=== PATIENT | female | born 1935 | race African-American/Black ===

== ENCOUNTER → 2017-11-27 | Outpatient (CLI) | payer OTHER, MEDICARE ==
[~2017-11-27] MED LIST: AMLODIPINE BESY10 MG PO; ASPIR 8181 MG PO; CEPHALEXIN500 MG PO; COUMADIN2 MG PO; COUMADIN2.5 MG PO; METOPROLOL TART50 MG PO; PRAVASTATIN SOD40 MG PO
--- NOTE | 2017-11-27 15:37 | Diagnostic Imaging Report ---
PROCEDURE: Frontal and lateral views of the chest. COMPARISON: Patients [facility], , CHEST SINGLE (PORTABLE), 01/07/2017, 13:00. INDICATIONS: GASTRITIS FINDINGS: Lines/tubes: None. Lungs: The lungs are well inflated. Mild bilateral perihilar interstitial opacities . There is no evidence of consolidation or alveolar pulmonary edema. Pleura: There is no pleural effusion or pneumothorax. Heart and mediastinum: Stable enlargement of the cardiac silhouette. There is central pulmonary venous congestion. Tortuous aorta. Bones: No acute bony abnormality. IMPRESSION: 1. enlarged cardiac silhouette, central pulmonary venous congestion and mild bilateral perihilar interstitial edema, suggesting decompensated CHF. Lawrence Coffey M.D. Dictated by: Lawrence Coffey M.D. on 11/27/2017 at 15:37 Electronically approved by: Lawrence Coffey M.D. on 11/27/2017 at 15:37
--- NOTE | 2017-11-27 17:41 | Diagnostic Imaging Report ---
PROCEDURE:X-RAY ABDOMEN - KUB COMPARISON:None. INDICATIONS:GASTRITIS FINDINGS: Nonobstructive bowel gas pattern with large amount of retained stool in the colon. Linear calcifications in the left upper quadrant are likely vascular in origin. No definite calcifications project over the renal shadows or expected course of the ureters. Extensive vascular calcifications in the abdomen and pelvis. Generalized osteopenia, with degenerative changes in lower lumbosacral spine, bilateral hip and sacroiliac joints. Vertebroplasty changes at L1. Lung bases are clear. CONCLUSION: Nonobstructive bowel gas pattern with large amount of retained stool in the colon suggesting constipation. Lawrence Coffey M.D. Dictated by: Lawrence Coffey M.D. on 11/27/2017 at 17:41 Electronically approved by: Lawrence Coffey M.D. on 11/27/2017 at 17:41
== END ==
LOC: RAD 14:25
PROVIDERS: ATTEND Family Medicine
DX: J06.9 Acute upper respiratory infection, unspecified (principal); K29.00 Acute gastritis without bleeding
CPT/HCPCS: 71046; 74018

== ENCOUNTER → 2017-12-04 | Outpatient (CLI) | payer OTHER, MEDICARE ==
[~2017-12-04] MED LIST changes: +DIATRIZOATE MEGL/DIATRIZOA SOD 30 ML BTL PO ONE
--- NOTE | 2017-12-04 14:17 | Diagnostic Imaging Report ---
PROCEDURE: CT CHEST WITHOUT CONTRAST CT scan of the chest WITHOUT intravenous contrast, using standard protocol. TECHNIQUE: The chest was scanned utilizing a multidetector helical scanner from the apex to the level of the adrenal glands. No IV contrast was administered per physician request. Coronal and sagittal multiplanar reformations were obtained. COMPARISON: None. INDICATIONS: GASTRITIS, COUGH FINDINGS: Lines/tubes: None. Lungs and Airways: Mild bilateral bronchial wall thickening. Subtle groundglass opacities adjacent to the right upper lobe adjacent to the hilar vessels. 4.2 mm nodule in the lateral right upper lobe (series 4 image 47) Pleura: The pleural spaces are clear. Heart and mediastinum: Multinodular goiter with multiple nodules. Multiple hyperdense nodules in the right thyroid. Some of the nodules demonstrates peripheral calcifications and others demonstrates coarse dystrophic calcifications. No significant mediastinal, hilar or axillary lymphadenopathy is seen. The heart and pericardium are within normal limits. Severe atherosclerotic calcifications in the aorta and coronary arteries. Mild cardiomegaly with mildly dilated left atrium. Main pulmonary artery measures 3.8 cm. Ascending aorta measures 4.2 cm. Soft tissues: Normal. Abdomen: Small sliding hiatal hernia. Bones: Median sternotomy wires. Vertebroplasty material in L1 vertebral body. Soft tissue: Multiple right breast benign-appearing dystrophic calcifications. IMPRESSION: 1. Bronchial wall thickening with mild right perihilar groundglass opacities, likely atypical infection or reactive airway. 2. Enlargement pulmonary artery, which can be seen in pulmonary arterial hypertension. 3. Severe atherosclerotic of the aorta and coronary arteries. 4. Small sliding hiatal hernia. Dictated by: Scooter Lynne M.D. on 12/04/2017 at 14:17 Electronically approved by: Scooter Lynne M.D. on 12/04/2017 at 14:17
--- NOTE | 2017-12-04 14:30 | Diagnostic Imaging Report ---
PROCEDURE: CT ABDOMEN WITHOUT CONTRAST TECHNIQUE: The abdomen was scanned utilizing a multidetector helical scanner from the diaphragm to the iliac crest after the oral administration of Redicat. No IV contrast was administered because per physician request. Coronal and sagittal multiplanar reformations were obtained. COMPARISON: None. INDICATIONS: GASTRITIS FINDINGS: ABSENCE OF INTRAVENOUS CONTRAST DECREASES SENSITIVITY FOR DETECTION OF FOCAL LESIONS AND VASCULAR PATHOLOGY. LOWER THORAX: See chest CT. HEPATOBILIARY: No focal hepatic lesions. No biliary ductal dilatation. Several small gallstones. SPLEEN: No splenomegaly. PANCREAS: No focal masses or ductal dilatation. ADRENALS: No adrenal nodules. KIDNEYS: No hydronephrosis, stones, or solid mass lesions. The numerous bilateral renal cysts. Largest cyst in the right kidney measures 7.3 cm. Largest cyst in the left kidney measures 3.2 cm. Majority cysts are simple. There is however a 2.6 cm cyst in the interpolar region of the left kidney (series 2 image 63) with wall calcifications. PERITONEUM / RETROPERITONEUM: No free air or fluid. LYMPH NODES: No lymphadenopathy. VESSELS: Severe atherosclerotic calcifications.. GI TRACT: Visualized portions of the bowel demonstrate no distention or wall thickening. Small sliding hiatal hernia. BONES AND SOFT TISSUES: Vertebroplasty material in L1 vertebral body. Diffuse osteopenia of L4 vertebral body, likely intraosseous hemangioma. IMPRESSION: 1. Small sliding hiatal hernia. 2. Multiple bilateral renal cysts [place] 1 or [place] 2. 3. Severe vascular calcifications. Dictated by: Scooter Lynne M.D. on 12/04/2017 at 14:31 Electronically approved by: Scooter Lynne M.D. on 12/04/2017 at 14:31
== END ==
LOC: CT 12:43
PROVIDERS: ATTEND Family Medicine
DX: K29.00 Acute gastritis without bleeding (principal)
CPT/HCPCS: 71250; 74150

== ENCOUNTER → 2018-02-24 | Outpatient (CLI) | payer OTHER, MEDICARE ==
[~2018-02-24] MED LIST changes: -DIATRIZOATE MEGL/DIATRIZOA SOD 30 ML BTL PO ONE
== END | disposition home or self-care (01) ==
LOC: RAD 11:38
PROVIDERS: ATTEND Family Medicine
DX: I80.9 Phlebitis and thrombophlebitis of unspecified site (principal); I82.512 Chronic embolism and thrombosis of left femoral vein
CPT/HCPCS: 93971

== ENCOUNTER 2018-04-01 12:21 | Emergency (ER) | payer OTHER, MEDICARE ==
[~2018-04-01] VITALS: Ht 165.1 cm; Wt 86.6 kg
--- NOTE | 2018-04-01 15:50 | Diagnostic Imaging Report ---
PROCEDURE:ABDOMEN ACUTE SERIES W/PA CXR COMPARISON:None. INDICATIONS:CONSTIPATION, LEFT LEG SWOLLEN FINDINGS: CHEST: Median sternotomy wires. Tortuous thoracic aorta. The cardiac silhouette is mildly enlarged. Mild prominence of the pulmonary vasculature bilaterally. Prominence of the main pulmonary artery bilaterally may reflect hypertension. BOWEL PATTERN: No dilated bowel loops. No air-fluid levels. Moderate amount stool within the colon and rectum. SOFT TISSUES: Vascular calcifications. BONES: Status post L1 kyphoplasty. CONCLUSION: 1. No acute thoracic abnormality. Possible pulmonary hypertension. 2. Non-obstructive bowel gas pattern. Ethel Giles M.D. Dictated by: Ethel Giles M.D. on 04/01/2018 at 15:55 Electronically approved by: Ethel Giles M.D. on 04/01/2018 at 15:55
[2018-04-01 17:08] LABS: BILIRUBIN,URINE NEGATIVE (NEGATIVE); CLARITY,URINE CLOUDY (CLEAR); COLOR,URINE YELLOW (YELLOW); KETONES,URINE NEGATIVE (NEGATIVE); LEUKOCYTE ESTERASE ,URINE 2+ (NEGATIVE); NITRITE,URINE POSITIVE (NEGATIVE); PROTEIN,URINE DIPSTICK 1+ (NEGATIVE); URINE UROBILINOGEN 0.2 mg/dL (0.2 - 1)
[2018-04-01 17:22] LABS: BACTERIA,URINE MANY /HPF; WBC,URINE (MAN) 21-50 /HPF (0-5)
[2018-04-01] MEDS ORDERED: LEVOFLOXACIN 500MG/D5W 100ML 100 ML IV ONE (17:45)
[2018-04-01] MEDS ORDERED: LEVOFLOXACIN 500 MG TAB PO ONE (18:30)
[2018-04-01 19:22] VITALS: BP 148/70
== END 2018-04-01 19:05 | disposition home or self-care (01) ==
LOC: ER 12:21
DX: I89.0 Lymphedema, not elsewhere classified (principal); R26.2 Difficulty in walking, not elsewhere classified; N39.0 Urinary tract infection, site not specified; G98.8 Other disorders of nervous system
CPT/HCPCS: 74022; 81001; 93971; 99284; J1956

== ENCOUNTER 2019-11-04 12:54 | Inpatient (IN) | payer MEDICARE, OTHER ==
[~2019-11-04] VITALS: Ht 165.1 cm; Wt 65.5 kg
[2019-11-04] MEDS ORDERED: SODIUM CHLORIDE 0.9% 500ML 500 ML IV ONE (14:00)
[2019-11-04 14:26] LABS: BASOPHILS % 0.2 % (0.0-1.0); EOSINOPHILS # (AUTO) 0.1 (0.0-0.4); EOSINOPHILS % 0.5 % (0.0-6.0); HEMATOCRIT 39.6 % (34.2-44.1); LYMPHOCYTES # (AUTO) 0.5 (1.0-3.2); LYMPHOCYTES % 2.7 % (18.0-39.1); MEAN CORPUSCULAR HGB CONC 32.8 g/dL (31-35); MEAN CORPUSCULAR VOLUME 94.5 fL (81-99); MONOCYTES # (AUTO) 1.1 (0.2-0.8); MONOCYTES % 5.7 % (4.4-11.3); PLATELET COUNT 409 x10e3/uL (140-360); RED BLOOD COUNT 4.19 x10e6/uL (3.6-5.1); RED CELL DISTRIBUTION WIDTH 15.5 % (11.7-14.4)
[2019-11-04 14:59] LABS: INR 3.28
[2019-11-04 15:00] LABS: PARTIAL THROMBOPLASTIN TIME 53.1 seconds (23.8-35.5)
[2019-11-04 15:06] LABS: ALANINE AMINOTRANSFERASE 17 IU/L (0-55); ALBUMIN 2.8 g/dL (3.5-5.0); ALBUMIN/GLOBULIN RATIO 0.6 (0.8-2.0); ALKALINE PHOSPHATASE 68 IU/L (40-150); ANION GAP 21.8 mmol/L (8-16); BLOOD UREA NITROGEN 20 mg/dL (7-26); BUN/CREATININE RATIO 18 (6-25); CALCIUM 9.1 mg/dL (8.4-10.2); CARBON DIOXIDE 22 mmol/L (22-29); CHLORIDE 103 mmol/L (98-107); CREATINE KINASE 40 IU/L (29-168); CREATININE, SERUM 1.09 mg/dL (0.57-1.11); EST GLOMERULAR FILTRATION RATE 58 ML/MIN (60-); GLUCOSE 202 mg/dL (74-118); POTASSIUM 3.8 mmol/L (3.5-5.1); SODIUM 143 mmol/L (136-145)
[2019-11-04 15:11] LABS: LIPASE < 4 U/L (8-78)
--- NOTE | 2019-11-04 15:29 | Diagnostic Imaging Report ---
EXAM: CT Abdomen and Pelvis WITHOUT intravenous contrast INDICATION: Abdominal pain, nausea, vomiting COMPARISON: None TECHNIQUE: Abdomen and pelvis were scanned utilizing a multidetector helical scanner from the lung base to the pubic symphysis without administration of IV contrast. Coronal and sagittal reformations were obtained. IV CONTRAST: None ORAL CONTRAST: Water COMPLICATIONS: None RADIATION DOSE: Total DLP: 412.8 mGy*cm Dose modulation, iterative reconstruction, and/or weight based adjustment of the mA/kV was utilized to reduce the radiation dose to as low as reasonably achievable. FINDINGS: LOWER THORAX: Mild bibasilar dependent subsegmental atelectasis. Diffuse coronary artery calcifications. Moderate sliding hiatal hernia. HEPATOBILIARY: No focal liver lesion. No biliary ductal dilation. Cholelithiasis with thickening of the gallbladder wall and small amount of pericholecystic fluid and pericholecystic fat stranding. SPLEEN: No splenomegaly. PANCREAS: No focal masses or ductal dilatation. ADRENALS: No adrenal nodules. KIDNEYS/URETERS: No renal calculi or hydronephrosis. Calcifications throughout the kidneys are likely vascular calcifications. Numerous bilateral renal cysts, the largest measuring up to 7.3 cm at the right lower pole and 4.7 cm at the left lower pole. No solid mass lesion. PELVIC ORGANS/BLADDER: Unremarkable. PERITONEUM / RETROPERITONEUM: No free air or fluid. LYMPH NODES: No lymphadenopathy. VESSELS: Heavy diffuse atherosclerotic calcifications of the nonaneurysmal abdominal aorta and major branches. GI TRACT: Diverticulosis without CT evidence of diverticulitis. No abnormal bowel thickening. No bowel obstruction. Normal appendix. BONES AND SOFT TISSUES: Diffuse osteopenia. No acute osseous injury. No suspicious lytic or blastic lesions. Status post L1 vertebral augmentation. L4 vertebral body hemangioma. IMPRESSION: Cholelithiasis with thickening of the gallbladder wall and small amount of pericholecystic fluid and pericholecystic fat stranding. Findings are suggestive of acute cholecystitis. Diverticulosis without CT evidence of diverticulitis. Heavy diffuse atherosclerotic calcifications including of the coronary arteries. Signed by: Emma Llanos MD on 11/04/2019 3:27 PM
--- NOTE | 2019-11-04 15:34 | NUR ---
incontinence care of stool provided for patient
[2019-11-04 15:35] LABS: BILIRUBIN,URINE NEGATIVE (NEGATIVE); CLARITY,URINE SL CLOUDY (CLEAR); COLOR,URINE YELLOW (YELLOW); KETONES,URINE NEGATIVE (NEGATIVE); LEUKOCYTE ESTERASE ,URINE TRACE (NEGATIVE); NITRITE,URINE NEGATIVE (NEGATIVE); PROTEIN,URINE DIPSTICK TRACE (NEGATIVE); URINE UROBILINOGEN 0.2 mg/dL (0.2 - 1)
--- NOTE | 2019-11-04 15:40 | Diagnostic Imaging Report ---
TECHNIQUE: Frontal view of the chest. INDICATION: 84-year-old woman with nausea and vomiting. COMPARISON: None. FINDINGS: Suboptimal evaluation secondary to patient rotation. LINES/TUBES: None. LUNGS: Apparent airspace opacity in the right lung base. PLEURA: No pneumothorax or significant pleural effusion. HEART AND MEDIASTINUM: The cardiomediastinal silhouette is within normal limits. There March SOFT TISSUES AND BONES: Intact median sternotomy wires. Soft tissues are unremarkable. IMPRESSION: Suboptimal evaluation secondary to patient rotation. Apparent airspace opacity in the right lung base may represent atelectasis or vessels, however pneumonia cannot be excluded. RECOMMENDATION: PA and lateral chest radiographs may be obtained for further evaluation. Signed by: Tracey Tejada MD on 11/04/2019 3:38 PM
[2019-11-04 15:43] LABS: BACTERIA,URINE MANY /HPF; EPITHELIAL CELLS,URINE FEW /LPF
[2019-11-04] MEDS ORDERED: MEROPENEM 1GM 100 ML IV STA (15:52)
[2019-11-04] MEDS ORDERED: SODIUM CHLORIDE 0.9% 1000ML 1,000 ML IV STA (15:56)
--- NOTE | 2019-11-04 16:00 | NUR ---
ATTEMPTED TO GET HOME MEDICATION LIST FROM FAMILY BUT WAS TOLD UNABLE TO GET LIST AT THE MOMENT. EDUCATED FAMILY THAT WHENEVER LIST BECOMES AVAILABLE TO LET NURSING STAFF KNOW IN ORDER TO REVIEW LIST.
[2019-11-04] MEDS ORDERED: ONDANSETRON HCL INJ 2MG/ML 2ML 2 MG/ML VIAL IV PRN (16:30)
[2019-11-04] MEDS ORDERED: MORPHINE SULFATE 2 MG/ML SYR 1ML IV PRN (16:30)
--- NOTE | 2019-11-04 18:30 | NUR ---
Notified by lab that pink top for blood bank has hemolyzed. Asked them to come draw the pink top because patient has been stuck multiple times. lab staff stated that she would draw pink top.
--- NOTE | 2019-11-04 18:34 | NUR ---
attempted to call report was told that nurse was receiving report and unable to take at the moment.
[2019-11-04] MEDS: SODIUM CHLORIDE 0.9% 1000ML 1,000 ML IV SCH (19:15)
--- NOTE | 2019-11-04 19:15 | NUR ---
BLOOD CONSENT FORM SIGNED BY CHARLESRADHA WHO STATES THAT SHE SIGNS ALL OF PATIENTS MEDICAL DOCUMENTATION.
[2019-11-04 20:00] VITALS: BP 131/88
--- NOTE | 2019-11-04 20:00 | NUR ---
84 year old female transfered via stretcher from er. Pt is alert and oriented x2. Pt is cooperative with care. Remains on Tele - st.Lungs clear. Respirations even and unlabored. dx cholecystitis. Abdomen soft with bowel sounds present x4. LBM yesterday. Meds reviewed with family- pt human services care specialist so had to call jaimet to get list of home meds. 20 g sl in left arm- flushes and site healthy. Pt to receive Plasma due to elevated INR- hx cabg on coumadin.Family report doctor comes to home monthly to see pt. Pt has bottom teeth but is able to eat soft foods. Pt is complete care at home. Family transports her in w/c.incontinent of urine. No wounds on coccyx. Family putting nystatin under breasts and both arms- reddness. Left leg larger than rt- hx lymphadema. legs and feet scaley and dry.Family and pt oriented to room,unit and pmc. Pt remains NPO. Bed locked and in low position. Call light within reach. Will await plasma being ready after lab drawn for cross match.
[2019-11-04 21:00] VITALS: BP 131/88
[2019-11-04] MEDS: FAMOTIDINE 20 MG/2 ML VIAL IV SCH (21:00)
[2019-11-04] MEDS ORDERED: SODIUM CHLORIDE 0.9% 250ML 250 ML ONE (23:07)
[2019-11-05] VITALS (7 sets, daily range): BP systolic 111–142; BP diastolic 64–78
--- NOTE | 2019-11-05 01:47 | Consultation ---
DATE OF CONSULTATION: 11/04/2019 HISTORY OF PRESENT ILLNESS: The patient is an 84-year-old female presents with complaints of abdominal pain. Unclear exactly when it started from the family, but has persisted. She came to emergency room for evaluation of CT of the abdomen and pelvis revealed findings suggestive of acute cholecystitis with inflamed appearing gallbladder with gallstones. The patient has no symptoms of jaundice. Apparently, it is not clear she has had similar symptoms in the past. PAST MEDICAL HISTORY: Significant for cardiac disease with congestive heart failure, previous myocardial infarction, previous cerebrovascular accident. She has history of DVT in the past and is currently on Coumadin. MEDICATIONS: At home are amlodipine, aspirin, metoprolol, and pravastatin. ALLERGIES: PENICILLIN, ORAL AND IV CONTRAST. PAST SURGICAL HISTORY: Details of previous surgeries are not available. FAMILY HISTORY: Not available. SOCIAL HISTORY: The patient has no history of smoking cigarettes or drinking alcohol. Review of systems cannot be obtained. PHYSICAL EXAMINATION: GENERAL: The patient is alert, does not really answer questions. VITAL SIGNS: Reveal heart rate around 110. The blood pressure is normal. O2 saturations 99%. HEENT: The sclerae is nonicteric. NECK: No masses. LUNGS: Equal breath sounds are clear. CARDIAC: Regular rhythm. ABDOMEN: Tender in the epigastrium greatest in right upper quadrant. There is no mass. There were questionable signs of localized peritonitis. EXTREMITIES: Somewhat thin with no edema. NEUROLOGIC: Grossly intact. LABORATORY DATA: White blood count 19.9, hemoglobin 13, hematocrit 39.6. Chemistries reveal normal liver function tests, normal lipase. ASSESSMENT: This 84-year-old female with acute cholecystitis, cholelithiasis. She will best be treated with cholecystectomy. She does have underlying medical conditions and planned to consult a Cardiology for preop cardiac evaluation. She also was on Coumadin with a prolonged PT and INR and she has been given fresh frozen plasma. PLAN: To repeat the PT and INR tomorrow morning to see if she needs additional fresh frozen plasma. The proposed surgery was explained to the patient including risks, benefits and alternatives. They understands and has had the opportunity to ask questions. Thank you for asking to see Ms. Colin. MD ENE Gaviria/MODL /[id number]
[2019-11-05] MEDS: FAMOTIDINE 20 MG/2 ML VIAL IV SCH ×3 (04:47→21:09)
[2019-11-05] MEDS: SODIUM CHLORIDE 0.9% 1000ML 1,000 ML IV SCH ×2 (04:47→08:35)
[2019-11-05] MEDS: MEROPENEM 1GM 100 ML IV SCH ×3 (04:48→17:54)
[2019-11-05 05:55] LABS: BASOPHILS # (AUTO) 0.1 (0.0-0.1); BASOPHILS % 0.5 % (0.0-1.0); EOSINOPHILS # (AUTO) 0.2 (0.0-0.4); EOSINOPHILS % 1.3 % (0.0-6.0); HEMATOCRIT 34.1 % (34.2-44.1); HEMOGLOBIN 11.5 g/dL (12.0-16.0); LYMPHOCYTES # (AUTO) 0.4 (1.0-3.2); LYMPHOCYTES % 2.6 % (18.0-39.1); MEAN CORPUSCULAR HGB CONC 33.7 g/dL (31-35); MEAN CORPUSCULAR VOLUME 91.9 fL (81-99); MONOCYTES # (AUTO) 0.6 (0.2-0.8); MONOCYTES % 4.1 % (4.4-11.3); NEUTROPHILS # (AUTO) 13.7 (2.1-6.9); PLATELET COUNT 287 x10e3/uL (140-360); RED BLOOD COUNT 3.71 x10e6/uL (3.6-5.1); RED CELL DISTRIBUTION WIDTH 15.3 % (11.7-14.4)
[2019-11-05 06:23] LABS: ALANINE AMINOTRANSFERASE 23 IU/L (0-55); ALBUMIN 2.5 g/dL (3.5-5.0); ALBUMIN/GLOBULIN RATIO 0.6 (0.8-2.0); ALKALINE PHOSPHATASE 62 IU/L (40-150); ANION GAP 13.3 mmol/L (8-16); BLOOD UREA NITROGEN 26 mg/dL (7-26); BUN/CREATININE RATIO 31 (6-25); CALCIUM 9.1 mg/dL (8.4-10.2); CARBON DIOXIDE 26 mmol/L (22-29); CHLORIDE 110 mmol/L (98-107); CHOLESTEROL 92 MD/DL (0-199); CREATININE, SERUM 0.85 mg/dL (0.57-1.11); EST GLOMERULAR FILTRATION RATE > 60 ML/MIN (60-); GLUCOSE 86 mg/dL (74-118); HDL CHOLESTEROL 45 MG/DL (40-60); LDL CHOLESTEROL 35 MG/DL (60-130); POTASSIUM 3.3 mmol/L (3.5-5.1); SODIUM 146 mmol/L (136-145); TRIGLYCERIDES 59 MG/DL (0-149)
[2019-11-05 06:28] LABS: INR 2.62
[2019-11-05 06:45] LABS: CREATINE KINASE MB 2.7 ng/mL (0-5.0)
[2019-11-05] MEDS ORDERED: K DUR10 MEQ PO (10:36)
[2019-11-05] MEDS ORDERED: LOPRESSOR25 MG PO (10:36)
[2019-11-05] MEDS ORDERED: WARFARIN SODIUM3 MG PO (10:36)
[2019-11-05] MEDS ORDERED: FAMOTIDINE20 MG PO (10:36)
[2019-11-05] MEDS ORDERED: LASIX20 MG PO (10:36)
--- NOTE | 2019-11-05 14:00 | History and Physical ---
CHIEF COMPLAINT: The patient is an 84-year-old female, who comes in with abdominal pain. HISTORY OF PRESENTING ILLNESS: Ms. Danyelle Colin is an 84-year-old female started to have some abdominal pain and vomiting. The pain was described as generalized and more concentrated to the epigastric and right quadrant area, but spread all over the abdomen. The patient severity of pain is described as severe. No modifying factors. No relieving factors. The patient had some amount of vomiting and no nausea is associated with abdominal pain. The patient is verbal. She has a history of stroke and most of the history is obtained from the patient's granddaughter at the side of bed. PAST MEDICAL HISTORY: History of hypertension, history of heart disease, history of CVA, history of TIAs in the past, history of coronary artery disease, history of myocardial infarction, history of hypertension, history of hyperlipidemia, history of DVT and pulmonary embolism. PAST SURGICAL HISTORY: History of coronary bypass, hysterectomy, CABG and stents. MEDICATIONS: She takes at home are amlodipine 10 mg. She takes Lasix 20 mg daily, warfarin 3 mg in the evening, Friday, Wednesdays and Fridays. She takes extra half Pepcid 40 mg daily, pravastatin 40 mg two tablets, which is 80 mg at nighttime, metoprolol 25 mg twice a day. ALLERGIES: ALLERGIC TO PENICILLIN AND IODINE, ORAL CONTRAST AND IV DYES. SOCIAL HISTORY: No EtOH. No IV drug abuse. No history of smoking. FAMILY HISTORY: Hypertension and diabetes in first degree relatives. REVIEW OF SYSTEMS: Negative for chest pain. No shortness of breath. Positive for abdominal pain and nausea. Positive for vomiting. No constipation. No rectal bleeding. No hematochezia. No hematemesis. No fevers and no chills reported by the family. PHYSICAL EXAMINATION: VITAL SIGNS: Temperature is 97.5, pulse of 115, respirations of 18, blood pressure is 135/78, pulse oximetry of 95%. HEENT: Normocephalic, atraumatic. Pupils are reactive to light and accommodation. No icterus present. CVS: S1, S2. Tachycardic. Regular rate and rhythm. LUNGS: Clear to auscultation. ABDOMEN: Tender in the right upper quadrant. EXTREMITIES: No clubbing, no cyanosis, no edema. NEUROLOGIC: The patient is alert and oriented. Verbal but only one word responses noted. LABORATORY VALUES: Initial white count was 143, potassium was 3.8, BUN of 20, creatinine of 1.09, glucose of 202. BNP was 922. Troponins have been trended to be negative. Lipase is less than 4. Hematology; white count initially was 19,000, platelet count of 409, RDW of 15.5. Coags; INR was 3.2, today's is 2.62. MICROBIOLOGY: Blood cultures are pending. Lactic acid was not done. IMAGING STUDIES: Chest x-ray, AP and lateral chest radiographs shows apparent airspace opacity in the right lung, which may represent atelectasis or vessels, suboptimal evaluation. Abdominal CT shows cholelithiasis with thickening of the gallbladder and small amount of cholecystic fluid and pericholecystic fat stranding, suggestive of acute cholecystitis and diverticulosis without diverticulitis, heavy diffuse atherosclerosis in the coronary arteries. ASSESSMENT: Ms. Danyelle Colin with: 1. Acute sepsis. 2. Acute cholecystitis. 3. Coumadin toxicity. 4. Hypertension. 5. Coronary artery disease. 6. Hyperlipidemia. 7. Long-term use of anticoagulants. PLAN: At this time would be the patient got a unit of FFP. We will continue monitoring her white count. Sodium is elevated. Continue with fluid resuscitation. The patient to be taken to surgery this afternoon. Antibiotics on board. Currently, the patient is on Merrem and morphine sulfate for pain control. We will continue monitor the patient. Granddaughter by bedside briefed. The patient is high risk for surgery and we will continue to monitor the patient. Further recommendation per clinical course. We will hold off on anticoagulation. MD BAUTISTA Alvarez/MODL /[id number]
[2019-11-05] MEDS ORDERED: ACETAMINOPHEN 325 MG SUPP PR PRN (14:30)
[2019-11-05] MEDS ORDERED: BUPIVACAINE HCL 0.5% INJ 30 ML VIAL INJ ONE (14:38)
[2019-11-05] MEDS ORDERED: SODIUM CHLORIDE 0.9% 250ML 500 ML ONE (14:45)
--- NOTE | 2019-11-05 14:45 | NUR ---
FFP administration began.
--- NOTE | 2019-11-05 15:03 | NUR ---
OR staff is here to take the patient for procedure. I spoke to Umair RN in the OR who will be receiving the patient, I explained that the remainder of the blood paperwork must be completed and properly monitored until infusion is completed. She stated it would be taken care and OR will assume monitoring of infusion. Informed her patient has tolerated the first 15 minutes of the infusion
[2019-11-05] MEDS ORDERED: MORPHINE SULFATE INJ 4 MG/ML INJ 1ML IV PRN (16:45)
[2019-11-05] MEDS ORDERED: TRAMADOL HCL 50 MG TAB PO PRN (16:45)
[2019-11-05] MEDS ORDERED: FENTANYL CITRATE/PF 100MCG/2 ML INJ ONE (17:27)
[2019-11-05] MEDS ORDERED: LABETALOL HCL 5 MG/ML 20ML VIAL ONE (18:20)
[2019-11-05] MEDS ORDERED: PHENYLEPHRINE HCL 1% 10 MG/ML VIAL ONE (18:20)
[2019-11-05] MEDS ORDERED: ATROPINE SULFATE 1 MG/ML VIAL ONE (18:20)
[2019-11-05] MEDS ORDERED: LIDOCAINE HCL 2% LOCAL INJ 5 ML SDV VIAL INJ ONE (18:20)
[2019-11-05] MEDS ORDERED: ONDANSETRON HCL INJ 2MG/ML 2ML 2 MG/ML VIAL ONE (18:20)
[2019-11-05] MEDS ORDERED: SEVOFLURANE INHAL SOLN 250 ML PEN BTL ONE (18:20)
[2019-11-05] MEDS ORDERED: DEXAMETHASONE SOD PHOS INJ 4 MG/ML VIAL ONE (18:20)
[2019-11-05] MEDS ORDERED: ROCURONIUM BROMIDE 10 MG/ML 5ML VIAL ONE (18:20)
--- NOTE | 2019-11-05 19:07 | Consultation ---
DATE OF CONSULTATION: 11/05/2019 Cardiology Consultation Thank you so much for asking me to see this nice lady again in consultation. Ms. Colin is an elderly and complex 84-year-old woman, who is admitted at this time for abdominal discomfort, nausea, and vomiting. 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 They confirmed that she has had nausea and vomiting and abdominal discomfort. Gallstones have originally been shown on CAT scan of the abdomen at [facility] in 2014. PAST MEDICAL HISTORY: Complex with cerebrovascular accident complicating a coronary artery bypass graft done by Dr. Montero at [facility] in May of 1999. 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 She has also had previous partial thyroidectomy in 1966, lithotripsy in the right kidney in 1983, surgical lithotomy in the right kidney in 1980, surgical lithotomy left kidney in 1989, hysterectomy 1972, and coronary bypass as above in 1998. MEDICATIONS: Recent home medications have been fish oil 1000 mg daily, aspirin 81 mg daily, pravastatin 40 mg daily, metoprolol tartrate 50 mg twice a day, amlodipine 10 mg daily, and warfarin 3 mg tablets 6 days a week. PERSONAL AND SOCIAL HISTORY: She does not smoke or drink, and she lives with her family. ALLERGIES: SHE IS ALLERGIC TO PENICILLIN AND IODINE. PHYSICAL EXAMINATION: GENERAL: At this time shows a pleasant, obese, black woman, who is aphasic, but smiling. VITAL SIGNS: Blood pressure is 141/64, pulse 100 and regular. HEAD, EYES, EARS, NOSE, AND THROAT: Relatively unremarkable. THORAX: There is a healed midline sternotomy. Heart sounds S1 and S2 are equal. There is 1/6 systolic murmur. LUNGS: Clear. ABDOMEN: Protuberant. Normal bowel sounds. EXTREMITIES: Show the right leg to be shrunken and then the left leg to have 2+ edema. LABORATORY STUDIES: Shows white count 15.0. Original prothrombin time 36 seconds, INR 3.28, coming down to 2.6. BUN 26, creatinine 0.8, and glucose 86. ASSESSMENT: 1. Cholecystitis. 2. Coronary artery disease, clinically stable after coronary artery bypass graft surgery. 3. Previous cerebrovascular accident with aphasia and hemiplegia. 4. Appropriate anticoagulation. PLAN: Agree with reversal of anticoagulation and surgical plans. She is stable to proceed with surgery. MD STEPHIE Che/MIRIAM /[id number] cc: MD Jin Gaviria MD
--- NOTE | 2019-11-05 23:23 | Operative Report ---
DATE OF PROCEDURE: 11/05/2019 SURGEON: César Wade MD PREOPERATIVE DIAGNOSIS: Acute cholecystitis and cholelithiasis. POSTOPERATIVE DIAGNOSIS: Acute gangrenous cholecystitis and cholelithiasis. PROCEDURE: Diagnostic laparoscopy with laparoscopic cholecystectomy. NETWORK PLANNER: None. ANESTHESIA: General endotracheal. INDICATIONS AND FINDINGS: The patient is an 84-year-old female, who presents with complaints of severe abdominal pain. Workup revealed acute cholecystitis. At surgery, the patient had gallbladder that was inflamed with areas of gangrene and necrosis containing foul-smelling purulent fluid. Gallbladder contained gallstones also. The cystic duct was also inflamed with necrosis going down to the gallbladder cystic duct junction. TECHNIQUE: After adequate general endotracheal anesthesia, the patient in supine position, the abdomen was prepped and draped in a sterile fashion with ChloraPrep solution to the right of the umbilicus. Skin and subcutaneous tissue were infiltrated with 0.5% Marcaine. An incision was made. Abdominal wall was elevated and the Veress needle was introduced. Pneumoperitoneum was then created. Laparoscopic camera was introduced. However, there were considerable adhesions in this area. A 10-mm trocar and cannula was placed in the epigastrium and the camera changed to the epigastric cannula site and the periumbilical cannula was repositioned superior to where the adhesions were. Camera was then returned to the periumbilical trocar and two 5 mm trocars and cannulas were placed in right upper quadrant. There were adhesions over an acutely inflamed gallbladder. The gallbladder was very distended, edematous with areas of gangrene and was very friable. Fundus was grasped and the gallbladder tore at this area and purulent fluid drained. There were adhesions over the gallbladder, which were lysed bluntly. The neck of the gallbladder was grasped. The gallbladder was very friable with areas of necrosis. The neck of the gallbladder was dissected free and there was found to be necrosis of the gallbladder cystic duct junction. The cystic duct was dissected free and grasped and the Endo-OSMIN stapler placed across the cystic duct and divided. The gallbladder was dissected free from the liver using electrocautery. Though it was completely free, there was some bleeding from the liver bed, which was controlled with electrocautery. The gallbladder bed was irrigated with saline. All fluid aspirated and inspected for hemostasis, which was seen to be adequate. The gallbladder was placed into an Endopouch and brought out through the epigastric cannula containing several stones. Gallbladder bed was inspected for hemostasis once again, which was seen to be adequate. It was irrigated with saline. All fluid aspirated. A 19-Algerian Angel drain was placed into the gallbladder bed in Morison's pouch through a separate stab wound that was brought out through the most lateral cannula site. Instruments and cannulas were then removed. Pneumoperitoneum was evacuated. Wounds were then closed. Fascia and the larger trocar wounds closed with 0 Vicryl. Skin to all wounds closed with eri. Sterile dressings applied to each wound. The patient tolerated the procedure well. Estimated blood loss was 125 mL. There were no complications. All counts were correct. The patient was taken to the recovery room in satisfactory condition. César Wade MD DWG/MODL /[id number] cc: MD Serge Alvarez MD
[2019-11-06] VITALS (8 sets, daily range): BP systolic 117–158; BP diastolic 55–100
[2019-11-06] MEDS: MEROPENEM 1GM 100 ML IV SCH ×3 (00:26→17:00)
[2019-11-06 05:58] LABS: BASOPHILS % 0.1 % (0.0-1.0); HEMATOCRIT 28.5 % (34.2-44.1); HEMOGLOBIN 9.3 g/dL (12.0-16.0); LYMPHOCYTES # (AUTO) 0.3 (1.0-3.2); LYMPHOCYTES % 2.1 % (18.0-39.1); MEAN CORPUSCULAR HEMOGLOBIN 30.5 pg (28-32); MEAN CORPUSCULAR HGB CONC 32.6 g/dL (31-35); MEAN CORPUSCULAR VOLUME 93.4 fL (81-99); MONOCYTES # (AUTO) 0.7 (0.2-0.8); MONOCYTES % 5.9 % (4.4-11.3); NEUTROPHILS # (AUTO) 11.1 (2.1-6.9); NEUTROPHILS % 91.5 % (38.7-80.0); PLATELET COUNT 296 x10e3/uL (140-360); RED BLOOD COUNT 3.05 x10e6/uL (3.6-5.1); RED CELL DISTRIBUTION WIDTH 15.4 % (11.7-14.4)
[2019-11-06] MEDS: SODIUM CHLORIDE 0.9% 1000ML 1,000 ML IV SCH (06:06)
[2019-11-06 06:17] LABS: ALANINE AMINOTRANSFERASE 35 IU/L (0-55); ALBUMIN 2.4 g/dL (3.5-5.0); ALBUMIN/GLOBULIN RATIO 0.6 (0.8-2.0); ALKALINE PHOSPHATASE 74 IU/L (40-150); ANION GAP 12.2 mmol/L (8-16); BLOOD UREA NITROGEN 31 mg/dL (7-26); BUN/CREATININE RATIO 32 (6-25); CALCIUM 8.9 mg/dL (8.4-10.2); CARBON DIOXIDE 23 mmol/L (22-29); CHLORIDE 116 mmol/L (98-107); CREATININE, SERUM 0.96 mg/dL (0.57-1.11); EST GLOMERULAR FILTRATION RATE > 60 ML/MIN (60-); GLUCOSE 82 mg/dL (74-118); POTASSIUM 3.2 mmol/L (3.5-5.1); SODIUM 148 mmol/L (136-145)
--- NOTE | 2019-11-06 07:05 | NUR ---
RCD PT AT BED PT IS ALERT AND CONFUSED RESTING ON BED IV PATENT BY SALINE FLUSH ARIA DRAIN WORKING BED LOW AND LOCKED CALL LIGHT IN REACH
[2019-11-06] MEDS ORDERED: POTASSIUM CHLORIDE 20MEQ/100ML 200 ML IV ONE (07:30)
[2019-11-06] MEDS: LACTATED RINGER'S 1,000 ML IV SCH ×2 (07:30→17:30)
--- NOTE | 2019-11-06 08:54 | Progress Note ---
DATE: SUBJECTIVE: The patient is an 84-year-old lady, who came in with sepsis with acute cholecystitis status post laparoscopic cholecystectomy. The patient is feeling better. Pain is better. No chest pain. No shortness of breath. The patient is kept n.p.o. OBJECTIVE: VITAL SIGNS: Temperature is 95.9, pulse of 89, respirations of 18, and blood pressure is 141/55. HEENT: Normocephalic and atraumatic. No icterus present. CVS: S1 and S2. Regular rate and rhythm. ABDOMEN: Slightly tender at the right upper quadrant. EXTREMITIES: No clubbing, no cyanosis, no edema. LABORATORY VALUES: White count is down to 12,000, hemoglobin of 9.3, hematocrit of 28.5, and platelet count is 296. Chemistry; shows sodium 148, potassium is 3.2, chloride of 116. ALT and AST are slightly elevated. HDL of 45, LDL of 35. ASSESSMENT: Ms. Danyelle Colin with: 1. Acute cholecystitis, status post laparoscopic cholecystectomy. 2. Hyponatremia. We will change the fluids to LR. 3. Coronary artery disease. 4. History of cerebrovascular accident. 5. History of chronic anticoagulation. PLAN: Continue current regimen. We will go ahead and change the fluids to LR. Replace potassium. Further recommendation per clinical course. We will continue to monitor the patient. MD BAUTISTA Alvarez/BERTAL /[id number]
[2019-11-06] MEDS: FAMOTIDINE 20 MG/2 ML VIAL IV SCH ×2 (09:00→20:12)
--- NOTE | 2019-11-06 18:00 | NUR ---
PAGED DR RAMON AND NOTIFIED THE RENEWAL OF HOME MEDS GOT THE ORDER TO RENEW LASIX AND AMLODIPINE
--- NOTE | 2019-11-06 19:07 | NUR ---
PT RESTING ON BED BED SIDE REPORT GIVEN TO ONCOMING NURSE
[2019-11-07] VITALS (9 sets, daily range): BP systolic 99–118; BP diastolic 66–78
[2019-11-07] MEDS: MEROPENEM 1GM 100 ML IV SCH ×3 (00:19→17:31)
[2019-11-07] MEDS: LACTATED RINGER'S 1,000 ML IV SCH ×3 (05:27→23:30)
[2019-11-07 06:21] LABS: BASOPHILS % 0.1 % (0.0-1.0); EOSINOPHILS % 0.1 % (0.0-6.0); HEMATOCRIT 26.8 % (34.2-44.1); LYMPHOCYTES # (AUTO) 0.8 (1.0-3.2); LYMPHOCYTES % 5.3 % (18.0-39.1); MEAN CORPUSCULAR HEMOGLOBIN 30.9 pg (28-32); MEAN CORPUSCULAR HGB CONC 33.6 g/dL (31-35); MEAN CORPUSCULAR VOLUME 92.1 fL (81-99); MONOCYTES % 7.2 % (4.4-11.3); NEUTROPHILS # (AUTO) 12.6 (2.1-6.9); NEUTROPHILS % 86.7 % (38.7-80.0); PLATELET COUNT 283 x10e3/uL (140-360); RED BLOOD COUNT 2.91 x10e6/uL (3.6-5.1); RED CELL DISTRIBUTION WIDTH 15.5 % (11.7-14.4)
[2019-11-07 06:42] LABS: ANION GAP 10.9 mmol/L (8-16); BLOOD UREA NITROGEN 29 mg/dL (7-26); BUN/CREATININE RATIO 37 (6-25); CALCIUM 8.8 mg/dL (8.4-10.2); CARBON DIOXIDE 24 mmol/L (22-29); CHLORIDE 118 mmol/L (98-107); CREATININE, SERUM 0.78 mg/dL (0.57-1.11); EST GLOMERULAR FILTRATION RATE > 60 ML/MIN (60-); GLUCOSE 105 mg/dL (74-118); POTASSIUM 3.9 mmol/L (3.5-5.1); SODIUM 149 mmol/L (136-145)
--- NOTE | 2019-11-07 07:00 | NUR ---
BEDSIDE SHIFT REPORT FROM WELDER/FITTER RN. PT DENIES NEEDS AT THIS TIME.
[2019-11-07] MEDS: FAMOTIDINE 20 MG/2 ML VIAL IV SCH (09:37)
[2019-11-07] MEDS: FAMOTIDINE 20 MG TAB PO SCH (09:38)
[2019-11-07] MEDS: AMLODIPINE BESYLATE 10 MG TAB PO SCH (09:38)
[2019-11-07] MEDS: METOPROLOL TARTRATE 25 MG TAB PO SCH ×2 (09:38→17:29)
--- NOTE | 2019-11-07 10:34 | Progress Note ---
DATE: SUBJECTIVE: The patient is status post laparoscopic cholecystectomy. The patient has no complaints, has hungry. No chest pain. No shortness of breath. No nausea. No vomiting. Bowel sounds positive. OBJECTIVE: VITAL SIGNS: Temperature is 96.8, pulse of 122, respirations of 18, and blood pressure is 106/73. HEENT: Normocephalic and atraumatic. The patient is verbal. CVS: S1, S2, normal. Regular. ABDOMEN: Nontender, nondistended. EXTREMITIES: No clubbing. No cyanosis. Positive for edema, especially on the left side. LABORATORY VALUES: Today's white count is up to 14,000, hemoglobin of 9, hematocrit 26.2, and platelet count of 283. Chemistry shows sodium of 149, potassium of 3.9, chloride 118, BUN of 29, and creatinine 0.78. ASSESSMENT: Ms. Danyelle Colin with: 1. Acute cholecystitis, status post laparoscopic cholecystectomy. 2. Hyponatremia. 3. Tachycardia. 4. Coronary artery disease. 5. History of CVA. 6. History of anticoagulation. PLAN: The patient will restart her metoprolol. Gently still anticoagulation will be held for tonight and then start back tomorrow. We can stop the Lovenox today. Metoprolol will be restarted. Hold back on Lasix at this time. Further recommendations per clinical course. We will continue to monitor the patient. MD BAUTISTA Alvarez/MODL /[id number]
--- NOTE | 2019-11-07 13:31 | NUR ---
OK PER DR. MCDANIEL TO RESTART ANTI-COAGULANTS.
[2019-11-07] MEDS: WARFARIN SOD 3 MG TAB PO SCH (17:00)
[2019-11-07] MEDS ORDERED: ENOXAPARIN INJ 80 MG/0.8 ML SYR SC SCH (21:00)
[2019-11-07] MEDS: FUROSEMIDE 20 MG TAB PO SCH (21:59)
[2019-11-07] MEDS: PRAVASTATIN 20 MG TAB PO SCH (21:59)
[2019-11-08] VITALS (8 sets, daily range): BP systolic 95–116; BP diastolic 64–80
[2019-11-08] MEDS: MEROPENEM 1GM 100 ML IV SCH ×3 (01:15→17:36)
[2019-11-08 05:43] LABS: BASOPHILS % 0.1 % (0.0-1.0); EOSINOPHILS # (AUTO) 0.5 (0.0-0.4); EOSINOPHILS % 3.8 % (0.0-6.0); HEMATOCRIT 25.8 % (34.2-44.1); HEMOGLOBIN 8.3 g/dL (12.0-16.0); LYMPHOCYTES # (AUTO) 1.1 (1.0-3.2); MEAN CORPUSCULAR HGB CONC 32.2 g/dL (31-35); MEAN CORPUSCULAR VOLUME 93.1 fL (81-99); MONOCYTES # (AUTO) 1.1 (0.2-0.8); NEUTROPHILS # (AUTO) 9.8 (2.1-6.9); NEUTROPHILS % 77.4 % (38.7-80.0); PLATELET COUNT 267 x10e3/uL (140-360); RED BLOOD COUNT 2.77 x10e6/uL (3.6-5.1); RED CELL DISTRIBUTION WIDTH 15.6 % (11.7-14.4)
[2019-11-08 06:10] LABS: INR 2.64; PROTHROMBIN TIME 30.2 seconds (11.9-14.5)
--- NOTE | 2019-11-08 07:04 | NUR ---
BEDSIDE SHIFT REPORT FROM SPENT GRAIN DRYER RN. PT DENIES NEEDS AT THIS TIME.
[2019-11-08 07:23] LABS: % IRON SATURATION 23 % (15-50); IRON 34 ug/dL (50-170); TOTAL IRON BINDING CAPACITY 151 ug/dL (261-478); TRANSFERRIN 108 mg/dL (180-382)
--- NOTE | 2019-11-08 08:14 | Progress Note ---
DATE: SUBJECTIVE: An 84-year-old female came in with acute cholecystitis, status post laparoscopic resection and also patient has a ARIA tube placed in. The patient is doing better, eating, bowel sounds positive with bowel movements yesterday. Pain is reduced. The patient's left lower extremity findings show chronic DVT, started back on warfarin. OBJECTIVE: VITAL SIGNS: Temperature is 96.6, pulse of 90, respirations of 20, blood pressure is 103/69, pulse oximetry of 97%. HEENT: Normocephalic, atraumatic in good spirits. CVS: S1 and S2 normal. Regular rate and rhythm. ABDOMEN: Nontender, nondistended. The patient's trocar sites are normal. ARIA tube with 10 mL of serosanguineous fluid in there. EXTREMITIES: No clubbing, left-sided with positive edema. LABORATORY VALUES: The patient's coags today 2.64. We will stop the Lovenox. INR on 11/08/2019 is 2.64 yesterday. Chemistry shows sodium of 149, potassium of 3.9, BUN and creatinine yesterday were normal. Hematology was within normal limits too. Hemoglobin of 8.3, hematocrit 25.8. ASSESSMENT: Ms. Danyelle Colin with: 1. Acute cholecystitis, status post laparoscopic cholecystectomy. Plan, continue to monitor the patient. Bowel sounds are positive. ARIA drain is draining less, can discontinue depending on surgery consult. 2. Tachycardia, resolved with metoprolol. 3. Coronary artery disease. 4. History of deep venous thrombosis. 5. History of anticoagulation. PLAN: Start anticoagulation today. Did discuss this with Dr. Figueroa. Stop Lovenox and metoprolol restarted. Continue medications. Further recommendation as per clinical course. We will continue to monitor the patient. MD BRIA AlvarezJ/MODL /[id number]
[2019-11-08] MEDS: FUROSEMIDE 20 MG TAB PO SCH (08:44)
[2019-11-08] MEDS: METOPROLOL TARTRATE 25 MG TAB PO SCH ×2 (08:45→17:37)
[2019-11-08] MEDS: AMLODIPINE BESYLATE 10 MG TAB PO SCH (08:45)
[2019-11-08] MEDS: FAMOTIDINE 20 MG TAB PO SCH (08:45)
--- NOTE | 2019-11-08 11:45 | NUR ---
ALYSON FROM THE STANDPOINT OF DR. DUMAS FOR PT TO DISCHARGE HOME.
--- NOTE | 2019-11-08 15:17 | NUR ---
WOUND CARE CONSULT FOR 84 YO FEMALE HX OF MOISTURE RASH REPORTED BY CAREGIVER JARED 11 ON MODERATE PUP STATUS AND INTERVENTIONS AND RECOMMENDED ALTERNATING PRESSURE MATTRESS LABS: WBC-12.62 HGB_8.3 GLUCOSE-105 SKIN ASSESSMENT COMPLETE PATIENT PRESENTS WITH DARKENED BLISTERED SACRAL AREA MEASURES 12CM X4CM WITH OPEN AREA 5UPM6TJ X.1CM PATIENT HAS NEWLY HEALED AREAS TO LEFT HIP AND BUTTOCKS WELL CAREGIVER AT BEDSIDE CONFIRMS PATIENT WAS HEALING FROM MOISTURE RELATED SKIN IRRITATION NOTED THAT DARK BLISTER TO SACRUM HAS ONE DEROOFED AREA RECOMMENDATIONS: NURSING TO CONTINUE TO MAINTAIN MODERATE PUP STATUS AND INTERVENTIONS AND ALTERNATING PRESSURE MATTRESS NURSING TO CONTINUE TO ASSIST PATIENT OUT OF BED FOR MEALS AND MUCH TOLERATED NURSING TO CONTINUE TO ASSIST PATIENT NEEDED WITH MEALS AND NUTRITIONAL SUPPLEMENTS TO ENSURE PROPER REQUIREMENTS FOR HEALING NURSING TO CONTINUE TO MAINTAIN PATIENT JIM AREA CLEAN AND DRY NURSING TO CONTINUE TO OFFLOAD FEET AND HEELS NEEDED WITH PILLOW SUSPENSION WHEN IN BED NURSING TO CLEAN SACRAL WITH NORMAL SALINE DAILY AND APPLY VENELEX OINTMENT AND ALLEVYN FOAM DRESSING Addendum: 11/08/19 at 1527 by Trace Coyne RN Amended: Links added.
--- NOTE | 2019-11-08 15:30 | NUR ---
OLD PRESSURE ULCER HEALED ACROSS BILATERAL BUTTOCKS. HARD TO SEE WITH SKIN TONE UNTIL A SMALL AREA OF SKIN PEELED OFF. TISSUE HEALED UNDER AREA. Addendum: 11/08/19 at 1839 by Levon Redman RN M[facility] (WITH [facility]) WITH ASSESSMENT AND TREATMENT.
--- NOTE | 2019-11-08 17:00 | NUR ---
NOTICED PT COUGHS AFTER EATING AND TAKING MEDICATIONS. BEDSIDE SWALLOW STUDY DONE. PHONG WITH SPEECH THERAPY RECOMMENDED A BARIUM SWALLOW STUDY. INFORMED DR. RAMON AND ORDER PLACED FOR STUDY.
[2019-11-08] MEDS: WARFARIN SOD 3 MG TAB PO SCH (17:36)
[2019-11-08] MEDS: PRAVASTATIN 20 MG TAB PO SCH (19:54)
[2019-11-09] MEDS: MEROPENEM 1GM 100 ML IV SCH ×2 (00:41→09:26)
[2019-11-09 00:55] VITALS: BP 106/61
[2019-11-09 05:40] LABS: HEMATOCRIT 27.6 % (34.2-44.1)
[2019-11-09 06:10] LABS: ANION GAP 10.3 mmol/L (8-16); BLOOD UREA NITROGEN 23 mg/dL (7-26); BUN/CREATININE RATIO 32 (6-25); CALCIUM 8.2 mg/dL (8.4-10.2); CARBON DIOXIDE 27 mmol/L (22-29); CHLORIDE 115 mmol/L (98-107); CREATININE, SERUM 0.73 mg/dL (0.57-1.11); EST GLOMERULAR FILTRATION RATE > 60 ML/MIN (60-); GLUCOSE 100 mg/dL (74-118); POTASSIUM 3.3 mmol/L (3.5-5.1); SODIUM 149 mmol/L (136-145)
[2019-11-09 06:24] VITALS: BP 108/68
--- NOTE | 2019-11-09 07:00 | NUR ---
BEDSIDE SHIFT REPORT FROM DIRECTOR PAYER RN. PT DENIES NEEDS AT THIS TIME.
[2019-11-09 07:02] LABS: INR 2.85; PROTHROMBIN TIME 32.1 seconds (11.9-14.5)
[2019-11-09] MEDS ORDERED: POTASSIUM CHLORIDE 20 MEQ TAB CR PO ONE (07:50)
[2019-11-09 08:13] VITALS: BP 113/75
[2019-11-09 09:00] VITALS: BP 113/75
[2019-11-09] MEDS ORDERED: BALSAM PERU/CASTOR OIL 60 GM OINT...G. TP SCH (09:00)
[2019-11-09] MEDS: FUROSEMIDE 20 MG TAB PO SCH (09:26)
[2019-11-09] MEDS: FAMOTIDINE 20 MG TAB PO SCH (09:27)
[2019-11-09] MEDS: AMLODIPINE BESYLATE 10 MG TAB PO SCH (09:27)
[2019-11-09] MEDS: METOPROLOL TARTRATE 25 MG TAB PO SCH (09:27)
--- NOTE | 2019-11-09 09:45 | Progress Note ---
DATE: SUBJECTIVE: The patient came in with acute sepsis. The patient also had a cholecystectomy for sepsis and also acute cholecystitis. The patient is feeling better. Coumadin anticoagulation has been started. The patient's H and H have been monitored regularly. Currently, the patient is on lactated Ringer at 2 KVO. Continued on her morphine sulfate, warfarin, and tramadol. No chest pains today. No shortness of breath. Feeling good and in good spirits. The patient still has a ARIA tube in. OBJECTIVE: VITAL SIGNS: Temperature is 98.5, pulse of 87, respirations of 17, blood pressure is 108/68, and pulse oximetry of 92%. HEENT: Normocephalic and atraumatic. Pupils are reactive to light and accommodation. CVS: S1 and S2 normal. Regular rhythm. ABDOMEN: Nontender. ARIA in place. EXTREMITIES: No clubbing, no cyanosis, no edema. Trocar sites on abdomen within normal limits and dry. LABORATORY VALUES: H and H are 9.0 and 27.6. Chemistries; sodium 149, potassium of 3.3, and chloride is 115. Iron is low at 34, TIBC of 151. ALT and AST slightly elevated. ASSESSMENT: Ms. Colin with: 1. Acute sepsis, status post laparoscopic cholecystectomy for acute cholecystitis. 2. Tachycardia, resolved. 3. Coronary artery disease. 4. History of deep venous thrombosis. 5. History of oral anticoagulation. PLAN: Continue oral anticoagulation, metoprolol. Bowel sounds are positive, ARIA should come out tomorrow as per Dr. Wade. Plan discharge back to alf tomorrow and continue monitoring her INRs. Further recommendation per clinical course. We will continue to monitor the patient. The patient has improved and awaiting ARIA removal. MD BAUTISTA Alvarez/MODL /[id number]
--- NOTE | 2019-11-09 12:53 | Diagnostic Imaging Report ---
PROCEDURE: X-RAY MODIFIED BARIUM SWALLOW COMPARISON: None. INDICATION: Aspiration Radiation Details: Fluoroscopy time: 1.7 minutes Cumulative dose: 11.4 mGy DISCUSSION: Fluoroscopic examination was performed in conjunction with speech pathology during swallowing a variety of thin and thick liquid consistencies. Provided images demonstrate laryngeal penetration but no aspiration. CONCLUSION: Modified barium swallow demonstrating laryngeal penetration but no aspiration. Please refer to the speech pathology report for further details. Signed by: Emma Llanos MD on 11/09/2019 12:50 PM
--- NOTE | 2019-11-09 13:06 | NUR ---
OK WITH DR. MONTEZ FOR PT TO DISCHARGE HOME. FOLLOW UP IN HIS OFFICE IN 5-7 DAYS FOR ARIA DRAIN REMOVAL. OK WITH DR. RAMON TO DC HOME. CONTINUE WARFARIN.
--- NOTE | 2019-11-09 13:54 | NUR ---
IMM letter delivered and explained to pt's family. Pt's son Jax Tobin at bedside verbalized understanding. States pt lives with him. Signed copy placed in chart. Copy to Mr. Tobin.
[2019-11-09] MEDS ORDERED: WARFARIN SODIUM3 MG PO (13:56)
== END 2019-11-09 14:35 | disposition home or self-care (01) | DRG 854 ==
LOC: ER 12:54 → ERHOLD 16:28 → MED/SURG2 20:00
PROVIDERS: ADMIT Family Medicine; ATTEND Family Medicine
PROC: 0FT44ZZ Resection of Gallbladder, Percutaneous Endoscopic Approach (ICD-10-PCS; principal; 2019-11-05 12:30)
DX: A41.9 Sepsis, unspecified organism (principal); K80.00 Calculus of gallbladder with acute cholecystitis without obstruction; I50.42 Chronic combined systolic (congestive) and diastolic (congestive) heart failure; I69.359 Hemiplegia and hemiparesis following cerebral infarction affecting unspecified side; E87.1 Hypo-osmolality and hyponatremia; I82.512 Chronic embolism and thrombosis of left femoral vein; K82.8 Other specified diseases of gallbladder; K82.A1 Gangrene of gallbladder in cholecystitis; I25.2 Old myocardial infarction; I25.10 Atherosclerotic heart disease of native coronary artery without angina pectoris; E78.5 Hyperlipidemia, unspecified; Z79.01 Long term (current) use of anticoagulants; Z86.711 Personal history of pulmonary embolism; Z95.1 Presence of aortocoronary bypass graft; Z88.0 Allergy status to penicillin; Z91.041 Radiographic dye allergy status; Z82.49 Family history of ischemic heart disease and other diseases of the circulatory system; T45.515A Adverse effect of anticoagulants, initial encounter; I11.0 Hypertensive heart disease with heart failure; I69.320 Aphasia following cerebral infarction; R00.0 Tachycardia, unspecified
CPT/HCPCS: 36415; 71045; 74176; 74230; 80048; 80053; 80061; 81001; 82550; 82553; 82948; 83540; 83690; 83880; 84466; 84484; 85014; 85018; 85025; 85610; 85730; 86850; 86900; 87040; 88304; 93005; 93970; 96360; 99284; J0461; J1100; J1650; J2001; J2270; J2370; J2405; J3010; J3480; J7030; J7040; J7050; J7121; P9017

== ENCOUNTER 2019-11-26 12:45 | Inpatient (IN) | payer MEDICARE, OTHER ==
[~2019-11-26] VITALS: Ht 177.8 cm; Wt 73.2 kg
[~2019-11-26 12:45] MED LIST changes: +FAMOTIDINE20 MG PO; +K DUR10 MEQ PO; +LASIX20 MG PO; +LOPRESSOR25 MG PO; +WARFARIN SODIUM3 MG PO
[2019-11-26 15:55] LABS: BASOPHILS % 0.4 % (0.0-1.0); EOSINOPHILS # (AUTO) 0.7 (0.0-0.4); EOSINOPHILS % 8.9 % (0.0-6.0); HEMATOCRIT 26.1 % (34.2-44.1); HEMOGLOBIN 8.1 g/dL (12.0-16.0); LYMPHOCYTES # (AUTO) 1.4 (1.0-3.2); LYMPHOCYTES % 17.1 % (18.0-39.1); MEAN CORPUSCULAR HEMOGLOBIN 29.1 pg (28-32); MEAN CORPUSCULAR VOLUME 93.9 fL (81-99); MONOCYTES % 11.6 % (4.4-11.3); NEUTROPHILS # (AUTO) 5.1 (2.1-6.9); PLATELET COUNT 499 x10e3/uL (140-360); RED BLOOD COUNT 2.78 x10e6/uL (3.6-5.1); RED CELL DISTRIBUTION WIDTH 14.8 % (11.7-14.4)
[2019-11-26 16:12] LABS: ALANINE AMINOTRANSFERASE 13 IU/L (0-55); ALBUMIN 2.4 g/dL (3.5-5.0); ALBUMIN/GLOBULIN RATIO 0.5 (0.8-2.0); ALKALINE PHOSPHATASE 78 IU/L (40-150); ANION GAP 14.1 mmol/L (8-16); BLOOD UREA NITROGEN 11 mg/dL (7-26); BUN/CREATININE RATIO 15 (6-25); CALCIUM 8.1 mg/dL (8.4-10.2); CARBON DIOXIDE 26 mmol/L (22-29); CHLORIDE 108 mmol/L (98-107); CREATINE KINASE 25 IU/L (29-168); CREATININE, SERUM 0.74 mg/dL (0.57-1.11); EST GLOMERULAR FILTRATION RATE > 60 ML/MIN (60-); GLUCOSE 153 mg/dL (74-118); LIPASE 61 U/L (8-78); POTASSIUM 4.1 mmol/L (3.5-5.1); SODIUM 144 mmol/L (136-145)
--- NOTE | 2019-11-26 17:19 | Diagnostic Imaging Report ---
EXAM: CT Abdomen and Pelvis WITHOUT intravenous contrast INDICATION: Rectal bleeding, altered mental status COMPARISON: Abdomen and pelvis CT of 11/04/2019 TECHNIQUE: Abdomen and pelvis were scanned utilizing a multidetector helical scanner from the lung base to the pubic symphysis without administration of IV contrast. Coronal and sagittal reformations were obtained. IV CONTRAST: None ORAL CONTRAST: Gastrografin COMPLICATIONS: None RADIATION DOSE: Total DLP: 295 mGy*cm Dose modulation, iterative reconstruction, and/or weight based adjustment of the mA/kV was utilized to reduce the radiation dose to as low as reasonably achievable. FINDINGS: LOWER THORAX: Small right pleural effusion. Right basilar subsegmental atelectasis. Coronary artery atherosclerotic calcifications. HEPATOBILIARY: No focal liver lesion. No biliary ductal dilation. Status post recent cholecystectomy. SPLEEN: No splenomegaly. PANCREAS: No focal masses or ductal dilatation. ADRENALS: No adrenal nodules. KIDNEYS/URETERS: Unchanged bilateral renal cysts. No hydronephrosis. Calcifications are likely vascular in etiology. PELVIC ORGANS/BLADDER: Status post hysterectomy. PERITONEUM / RETROPERITONEUM: No free air or fluid. LYMPH NODES: Unchanged bilateral prominent inguinal lymph nodes. VESSELS: Severe diffuse atherosclerotic calcifications of the abdominal aorta and major branches. GI TRACT: Severe diverticulosis. No CT evidence of diverticulitis. No abnormal bowel thickening. No bowel obstruction. BONES AND SOFT TISSUES: No acute osseous injury. Diffuse osteopenia. Status post L1 vertebral augmentation. L4 vertebral body hemangioma. Multilevel degenerative changes of the visualized spine. IMPRESSION: New small right pleural effusion. Status post interval cholecystectomy. No focal postoperative fluid collection. Severe diverticulosis without CT evidence of diverticulitis. Heavy diffuse atherosclerotic calcifications including of the coronary arteries. Signed by: Emma Llanos MD on 11/26/2019 5:16 PM
[2019-11-26] MEDS: SODIUM CHLORIDE 0.9% 1000ML 1,000 ML IV SCH (18:01)
--- NOTE | 2019-11-26 18:35 | NUR ---
PER TALENT ACQUISITION DIRECTOR, PIV DISLODGED AND OUT. MD NOTIFIED AND PICC LINE TO BE ORDERED.
[2019-11-26 20:00] VITALS: BP 118/56
--- NOTE | 2019-11-26 20:15 | NUR ---
PATIENT RECEIVED FROM ER IN STABLE CONDITION, NO SIGNS OF RESPIRATORY DISTRESS NOTED. PATIENT HAS NO IV ACCESS AT THIS MOMENT AND PICC TEAM IS CONFIRMED TO SEE PATIENT. PATIENT PRESENTS ON CONFUSION AND WAS CLEANED WITH HELP OF TECH, STAGE 2 TO SACRUM NOTED AND PATCHED WITH DRESSING. LYMPHEDEMA NOTED ON LEFT LEG AND CHAFFING TO RIGHT ARMPIT ASSESSED. BED IN LOWEST POSITION POSSIBLE, BOTH SIDE RAILS ARE UP, BED ALARM IS ON, WILL CONTINUE TO MONITOR.
[2019-11-26 21:24] LABS: INR 8.72; PROTHROMBIN TIME 79.1 seconds (11.9-14.5)
[2019-11-26 21:35] LABS: CREATINE KINASE MB 1.6 ng/mL (0-5.0)
--- NOTE | 2019-11-26 21:40 | NUR ---
CALLED DR. MUKHERJEE TO INFORM HIM OF CRITICAL LAB TO PATIENT AWAITING CALL BACK.
[2019-11-26] MEDS ORDERED: PHYTONADIONE 10 MG/ML AMP SQ SCH (22:00)
[2019-11-26 22:30] VITALS: BP 118/56
--- NOTE | 2019-11-26 22:30 | NUR ---
PATIENT GIVEN ONE TIME ORDER VITAMIN K ORDERED PER DR. MUKHERJEE. PATIENT SHOWS NO SIGNS OF DISTRESS.
[2019-11-27] VITALS (8 sets, daily range): BP systolic 128–157; BP diastolic 58–76
[2019-11-27] MEDS ORDERED: SODIUM CHLORIDE 0.9% 1000ML 1,000 ML ONE ×2 (03:18→12:20)
[2019-11-27 03:23] LABS: BASOPHILS % 0.4 % (0.0-1.0); EOSINOPHILS # (AUTO) 0.9 (0.0-0.4); EOSINOPHILS % 12.3 % (0.0-6.0); LYMPHOCYTES # (AUTO) 1.1 (1.0-3.2); LYMPHOCYTES % 13.9 % (18.0-39.1); MEAN CORPUSCULAR HEMOGLOBIN 29.2 pg (28-32); MEAN CORPUSCULAR HGB CONC 31.8 g/dL (31-35); MEAN CORPUSCULAR VOLUME 91.7 fL (81-99); MONOCYTES % 13.4 % (4.4-11.3); NEUTROPHILS # (AUTO) 4.4 (2.1-6.9); NEUTROPHILS % 58.7 % (38.7-80.0); PLATELET COUNT 407 x10e3/uL (140-360); RED CELL DISTRIBUTION WIDTH 14.7 % (11.7-14.4)
[2019-11-27] MEDS: PANTOPRAZOLE 40 MG 10ML VIAL IV SCH ×2 (03:24→13:14)
[2019-11-27] MEDS: SODIUM CHLORIDE 0.9% 1000ML 1,000 ML IV SCH ×3 (03:24→18:01)
[2019-11-27 03:58] LABS: FERRITIN 96.41 ng/mL (4.63-204.00)
--- NOTE | 2019-11-27 04:27 | NUR ---
PICC NURSE ATTEMPTED TO INSERT PICC LINE IN PATIENT AND WAS UNSUCCESSFUL. MIDLINE WAS PLACED FOR VENOUS ACCESS. LINE IS PATENT AND BLOOD WAS DRAWN FOR ORDERED LABS. IV FLUIDS NOW STARTED AT ORDERED RATE.
[2019-11-27] MEDS ORDERED: PHYTONADIONE 10 MG/ML AMP SQ ONE ×2 (06:30→23:45)
--- NOTE | 2019-11-27 07:16 | History and Physical ---
I saw the patient in the emergency room yesterday. The patient presented with GI bleed and anemia. HISTORY OF PRESENT ILLNESS: The patient is 84-year-old. The patient has some dementia and hypertension, who presents with bright red blood per stool, where she was also noticed to be anemic and therefore be admitted for GI bleed. PAST MEDICAL HISTORY: Hypertension, dementia, reflux disease, hyperlipidemia, and history of DVT. MEDICATIONS: See MAR. ALLERGIES: IODINE AND PENICILLIN. SOCIAL HISTORY: Nonsmoker and nondrinker. FAMILY HISTORY: Hypertension. PHYSICAL EXAMINATION: VITAL SIGNS: She is 84-year-old with a blood pressure of 148/60, pulse 78, and sats 99% on room air. GENERAL: She is no apparent distress, lying in bed. NECK: Supple. CARDIOVASCULAR: Regular rate and rhythm. LUNGS: Clear to auscultation bilaterally. ABDOMEN: Good. Bowel sounds are soft and nontender. No peritoneal signs. EXTREMITIES: No clubbing or cyanosis. NEUROLOGIC: Moves all extremities x4. ASSESSMENT AND PLAN: 1. Gastrointestinal bleed. We will consult Dr. Abhilash Mead. 2. Anemia. We will continue to monitor H and H and transfuse if necessary. 3. History of deep vein thrombosis, we are waiting on her INR levels. 4. Dementia. Continue to monitor. 5. Hypertension. We will continue to monitor right now and hold off on her blood pressure medicines until we figure out what her anemia status is going to be. Please see hospital chart for full details. MD JENNYFER Will/MIRIAM /[id number]
[2019-11-27 07:58] LABS: INR 7.93; PROTHROMBIN TIME 73.3 seconds (11.9-14.5)
[2019-11-27 07:59] LABS: ALANINE AMINOTRANSFERASE 11 IU/L (0-55); ALBUMIN 2.2 g/dL (3.5-5.0); ALBUMIN/GLOBULIN RATIO 0.6 (0.8-2.0); ALKALINE PHOSPHATASE 69 IU/L (40-150); ANION GAP 9.4 mmol/L (8-16); BLOOD UREA NITROGEN 10 mg/dL (7-26); BUN/CREATININE RATIO 15 (6-25); CALCIUM 7.8 mg/dL (8.4-10.2); CARBON DIOXIDE 27 mmol/L (22-29); CHLORIDE 111 mmol/L (98-107); CREATININE, SERUM 0.66 mg/dL (0.57-1.11); EST GLOMERULAR FILTRATION RATE > 60 ML/MIN (60-); GLUCOSE 84 mg/dL (74-118); POTASSIUM 3.4 mmol/L (3.5-5.1); SODIUM 144 mmol/L (136-145)
--- NOTE | 2019-11-27 08:22 | NUR ---
CRITCAL PT 73.3 AND INR 7.93 CALLED FROM LAB AT 0812. NOTIFIED DR. MUKHERJEE OF CRITICAL LABS AND POTASSIUM OF 3.4. AT 0820. PHYSICIAN ORDERED CBC AND INR FOR 1300 AND POTASSIUM 20MEQ IV ONCE.
[2019-11-27] MEDS ORDERED: POTASSIUM CHLORIDE 20MEQ/100ML 100 ML IV ONE (08:30)
[2019-11-27] MEDS ORDERED: PHYTONADIONE 10 MG/ML AMP SQ NR (10:45)
[2019-11-27 14:06] LABS: BASOPHILS % 0.3 % (0.0-1.0); EOSINOPHILS # (AUTO) 0.7 (0.0-0.4); EOSINOPHILS % 7.5 % (0.0-6.0); LYMPHOCYTES # (AUTO) 1.4 (1.0-3.2); LYMPHOCYTES % 15.8 % (18.0-39.1); MEAN CORPUSCULAR HEMOGLOBIN 28.6 pg (28-32); MEAN CORPUSCULAR HGB CONC 31.9 g/dL (31-35); MEAN CORPUSCULAR VOLUME 89.6 fL (81-99); MONOCYTES # (AUTO) 1.1 (0.2-0.8); MONOCYTES % 12.1 % (4.4-11.3); NEUTROPHILS # (AUTO) 5.6 (2.1-6.9); NEUTROPHILS % 63.2 % (38.7-80.0); PLATELET COUNT 415 x10e3/uL (140-360); RED BLOOD COUNT 2.41 x10e6/uL (3.6-5.1); RED CELL DISTRIBUTION WIDTH 14.6 % (11.7-14.4)
[2019-11-27 14:27] LABS: HEMOGLOBIN 6.9 g/dL (12.0-16.0)
[2019-11-27 14:28] LABS: HEMATOCRIT 21.6 % (34.2-44.1)
[2019-11-27 14:31] LABS: INR 5.65; PROTHROMBIN TIME 55.8 seconds (11.9-14.5)
--- NOTE | 2019-11-27 14:36 | NUR ---
Notified Angela Davalos of patient's hgb of 6.9 and PTT of 55.8. Physician then ordered to transfuse PRBC 1 unit over 4 hours. CBC and INR ordered for 9pm 11/27/19. Patient resting in bed. Awake and alert. Son present at bedside. No distress noted.
[2019-11-27] MEDS ORDERED: SODIUM CHLORIDE 0.9% 250ML 250 ML IV ONE (14:45)
--- NOTE | 2019-11-27 16:06 | NUR ---
Nutrition Intervention Note RD Recommendation(s) for Physician: -Continue cardiac diet as ordered -Rec Ensure Enlive BID to promote protein-calorie intake Plan of Care: RD following, monitoring for tolerance and adequacy, ONS rec Nutrition reason for involvement: Nutrition risk trigger MST RD Assessment 11/26 Chart reviewed. 84yo F, who was admitted for anemia and GI bleed. Visited pt in the room. Family on bedside to provide info due to pts hx of dementia. Per family, pt has had poor appetite with decreased PO intake for several days at home. No complain of nausea or vomiting noted. Pt has some missing teeth and requires her food to be chopped finely. No swallowing issue reported by family. Pt usually drinks 1-2 Ensure daily to keep her weight up. Family has not noticed any recent weight loss. RD rec Ensure BID and family was agreeable. Will continue to monitor and follow. Principal Problems/Diagnoses: GI bleed, anemia PMH: Hypertension, dementia, reflux disease, hyperlipidemia, and DVT I/O: n/a IVF: NaCl at 125mL/hr GI: abdomen soft, flat, non-tender, +flatus Skin: stage II pressure wound on buttock (No wound care consult) Labs: (11/26) K 3.4 L, Cl 111 H, Ca 7.8 L, iron 25 L, TIBC 162 L, Transferrin 116 L Meds: Protonix Ht: 65in Wt: 142lb BMI: 23.6kg/m2 IBW: 125lb +/- 10% Malnutrition Evaluation (11/26) The patient does not meet criteria for a specified degree of malnutrition at this time. Will re-evaluate at follow-up as appropriate. Energy intake: <75% of estimated energy requirements for less than 5 days Weight loss: No weight loss reported Fat loss: Mild some clavicle protrusion Muscle loss: No loss identified Supporting Evidence: Fluid accumulation: no accumulation identified Functional Status: no changes Nutrition Prescription (Diet Order): Cardiac diet Estimated Nutritional Needs: Calories: 1408 1600kcal(22-25kcal/kg/d) Weight used : CBW Protein : 64 96g (1-1.5g/kg/d) Weight used: CBW Diet Adequacy: Not meeting calorie needs, Not meeting protein needs Tolerance: Tolerating PO Diet Education Needs Assessment: Diet education not indicated. Nutrition Care Level: Low Nutrition Diagnosis: Inadequate oral intake related to GI bleed as evidenced by poor PO intake and declined in appetite. Goal: Patient will meet 75-100% of estimated needs by follow up Progress: N/A Interventions: Modified diet, Commercial beverage Monitoring/Evaluation: Total energy intake, Total protein intake, Modified diet, Liquid supplement, Weight change Signed: Ginger Alejandra MS, RD, LD
--- NOTE | 2019-11-27 17:20 | NUR ---
Blood transfusion began at 1650. PRBC 1 unit infusing via left midline at 90mls/hr. No distress noted. Pt awake and alert. sitting upright in bed. Siderails up x2. Bed low. Son present at bedside. No signs of adverse reaction noted.
--- NOTE | 2019-11-27 19:22 | NUR ---
REPORT GIVEN TO RAMEZ ESCALANTE. PT AWAKE AND ALERT. ACYANOTIC. BLOOD TRANSFUSING VIA MIDLINE AT RATE OF 110 ML/HR. NO DISTRESS NOTED.
--- NOTE | 2019-11-27 21:00 | NUR ---
PATIENT IS IN STABLE CONDITION, NO SIGNS OF RESPIRATORY DISTRESS NOTED. PATIENT HAS FINISHED UNIT OF BLOOD AND VITALS ARE STABLE. PATIENT STILL PRESENTS WITH CONFUSION AND IV FLUIDS ARE RUNNING AT ORDERED RATE . LYMPHEDEMA NOTED ON LEFT LEG AND CHAFFING TO RIGHT ARMPIT ASSESSED. BED IN LOWEST POSITION POSSIBLE, BOTH SIDE RAILS ARE UP, BED ALARM IS ON, WILL CONTINUE TO MONITOR.
[2019-11-27 23:03] LABS: BASOPHILS % 0.4 % (0.0-1.0); EOSINOPHILS # (AUTO) 0.8 (0.0-0.4); EOSINOPHILS % 8.2 % (0.0-6.0); HEMATOCRIT 26.4 % (34.2-44.1); HEMOGLOBIN 8.5 g/dL (12.0-16.0); LYMPHOCYTES # (AUTO) 1.5 (1.0-3.2); LYMPHOCYTES % 16.3 % (18.0-39.1); MEAN CORPUSCULAR HEMOGLOBIN 29.2 pg (28-32); MEAN CORPUSCULAR HGB CONC 32.2 g/dL (31-35); MEAN CORPUSCULAR VOLUME 90.7 fL (81-99); MONOCYTES # (AUTO) 1.2 (0.2-0.8); MONOCYTES % 12.7 % (4.4-11.3); NEUTROPHILS # (AUTO) 5.8 (2.1-6.9); PLATELET COUNT 385 x10e3/uL (140-360); RED BLOOD COUNT 2.91 x10e6/uL (3.6-5.1); RED CELL DISTRIBUTION WIDTH 14.6 % (11.7-14.4)
[2019-11-27 23:07] LABS: INR 3.07; PROTHROMBIN TIME 34.1 seconds (11.9-14.5)
[2019-11-28] VITALS (9 sets, daily range): BP systolic 124–173; BP diastolic 53–77
[2019-11-28] MEDS ORDERED: SODIUM CHLORIDE 0.9% 1000ML 1,000 ML ONE ×3 (00:19→23:32)
[2019-11-28] MEDS: SODIUM CHLORIDE 0.9% 1000ML 1,000 ML IV SCH ×3 (00:20→23:31)
[2019-11-28] MEDS: PANTOPRAZOLE 40 MG 10ML VIAL IV SCH ×2 (01:31→13:50)
[2019-11-28 06:23] LABS: BASOPHILS % 0.4 % (0.0-1.0); EOSINOPHILS # (AUTO) 0.8 (0.0-0.4); EOSINOPHILS % 8.1 % (0.0-6.0); HEMATOCRIT 26.3 % (34.2-44.1); HEMOGLOBIN 8.4 g/dL (12.0-16.0); LYMPHOCYTES # (AUTO) 1.7 (1.0-3.2); LYMPHOCYTES % 17.5 % (18.0-39.1); MEAN CORPUSCULAR HEMOGLOBIN 29.2 pg (28-32); MEAN CORPUSCULAR HGB CONC 31.9 g/dL (31-35); MEAN CORPUSCULAR VOLUME 91.3 fL (81-99); MONOCYTES # (AUTO) 1.1 (0.2-0.8); NEUTROPHILS # (AUTO) 5.7 (2.1-6.9); NEUTROPHILS % 60.8 % (38.7-80.0); PLATELET COUNT 399 x10e3/uL (140-360); RED BLOOD COUNT 2.88 x10e6/uL (3.6-5.1); RED CELL DISTRIBUTION WIDTH 14.9 % (11.7-14.4)
[2019-11-28 06:42] LABS: INR 2.12; PROTHROMBIN TIME 25.3 seconds (11.9-14.5)
--- NOTE | 2019-11-28 07:28 | NUR ---
Assumed care at 0700. Pt resting in bed with eyes closed. Acyanotic. No distress noted.
[2019-11-28] MEDS ORDERED: BISACODYL 5 MG TAB EC PO ONE ×4 (08:00→09:30)
[2019-11-28] MEDS ORDERED: CITRATE OF MAGNESIA 300ML BOTTLE PO NR ×2 (13:00→18:00)
--- NOTE | 2019-11-28 13:01 | NUR ---
INFORMED DR. Mackenzie MARTÍNEZ OF THAT PATIENT REFUSES TO TAKE THE REMAINING DULOCOLAX TABS ORDERED. PHYSICIAN ORDERED ONE BOTTLE OF MAG CITRATE NOW, THEN ONE BOTTLE OF MAGNESIUM CITRATE AT 1800 IF SHE DRINKS THE FIRST ONE. TELEPHONE ORDER READ BACK AND VERIFIED.
--- NOTE | 2019-11-28 19:14 | NUR ---
Pt awake and alert. No distress noted. HOB at 30 degrees. Bed alarm noted. Report given to RAMEZ Gonsales
--- NOTE | 2019-11-28 21:00 | NUR ---
PATIENT RESTING IN BED IN STABLE CONDITION, NO SIGNS OF DISTRESS NOTED. IV FLUIDS ARE RUNNING AT ORDERED RATE AND PATIENT IS NEARLY FINISHED WITH MAGNESIUM CITRATE FOR PROCEDURE TOMORROW. PATIENT HAS SUCCESSFULLY HAD AT LEAST 2 BOWEL MOVEMENTS THROUGHOUT THE SHIFT SO FAR. BED IS IN LOWEST POSITION, BOTH SIDE RAILS ARE UP, BED ALARM IS ON, WILL CONTINUE TO MONITOR.
[2019-11-29] VITALS (8 sets, daily range): BP systolic 116–159; BP diastolic 55–76
--- NOTE | 2019-11-29 00:30 | NUR ---
CONFIRMED WITH DR. MARTÍNEZ THAT PATIENT WILL HAVE EGD INSTEAD OF COLONOSCOPY. PATIENT'S DAUGHTER WAS INFORMED VIA TELEPHONE AND CONSENT WAS VERIFIED WITH HELP OF SECOND NURSE.
[2019-11-29] MEDS: PANTOPRAZOLE 40 MG 10ML VIAL IV SCH ×2 (01:26→12:56)
[2019-11-29] MEDS: SODIUM CHLORIDE 0.9% 1000ML 1,000 ML IV SCH ×2 (02:01→09:38)
--- NOTE | 2019-11-29 05:08 | Consultation ---
DATE OF CONSULTATION: SUBJECTIVE: The patient did well overnight. No new issues. No further evidence of bleeding. Hemoglobin has been stable. OBJECTIVE: VITAL SIGNS: Temperature pulse 102, blood pressure 159/76, sats 100%. GENERAL: No apparent distress lying in bed. LUNGS: Clear to auscultation bilaterally. CARDIOVASCULAR: Regular rate and rhythm. ABDOMEN: Good bowel sounds. Soft, nontender, nondistended. No peritoneal signs. NEUROLOGIC: Moves all extremities x4. EXTREMITIES: No clubbing, cyanosis. ASSESSMENT AND PLAN: 1. Gastrointestinal bleed. Continue current care per Dr. Mead. 2. Anemia. Continue to monitor. 3. Hypokalemia, replaced. 4. Reflux disease continue with proton pump inhibitor. 5. Coumadin toxicity. We will continue to monitor the INR, but it is now in the reasonable range. 6. Hypertension. Continue to monitor. Please see hospital chart for full details. MD JENNYFER Will/MIRIAM /[id number]
[2019-11-29 06:08] LABS: BASOPHILS % 0.4 % (0.0-1.0); EOSINOPHILS # (AUTO) 0.7 (0.0-0.4); EOSINOPHILS % 6.8 % (0.0-6.0); HEMATOCRIT 25.8 % (34.2-44.1); HEMOGLOBIN 8.1 g/dL (12.0-16.0); LYMPHOCYTES # (AUTO) 1.5 (1.0-3.2); MEAN CORPUSCULAR HEMOGLOBIN 28.8 pg (28-32); MEAN CORPUSCULAR HGB CONC 31.4 g/dL (31-35); MEAN CORPUSCULAR VOLUME 91.8 fL (81-99); MONOCYTES # (AUTO) 1.3 (0.2-0.8); NEUTROPHILS # (AUTO) 5.9 (2.1-6.9); NEUTROPHILS % 61.1 % (38.7-80.0); PLATELET COUNT 378 x10e3/uL (140-360); RED BLOOD COUNT 2.81 x10e6/uL (3.6-5.1)
[2019-11-29 08:55] LABS: INR 1.51; PROTHROMBIN TIME 19.2 seconds (11.9-14.5)
[2019-11-29] MEDS ORDERED: SODIUM CHLORIDE 0.9% 1000ML 1,000 ML ONE (09:09)
--- NOTE | 2019-11-29 09:42 | NUR ---
Patient resting in bed, Alert with no distress, on IV fluids, NPO for EGD, Keep monitoring
--- NOTE | 2019-11-29 10:54 | NUR ---
patient off the unit for EGD, Stable
--- NOTE | 2019-11-29 12:10 | Operative Report ---
DATE OF PROCEDURE: 11/29/2019 SURGEON: Abhilash Mead MD PROCEDURE: Esophagogastroduodenoscopy with biopsies. INDICATIONS FOR EGD: Upper abdominal pain and anemia. MEDICATIONS: The patient was done under MAC, please see anesthesiologist's note. PROCEDURE IN DETAIL: With the patient in left lateral decubitus position, a flexible fiberoptic Olympus gastroscope was introduced into the esophagus under direct visualization without any difficulty. There was some patchy erythema noted in the distal esophagus. The scope was then advanced with ease into the stomach traversing a moderate-sized hiatal hernia. Mucosa overlying the antrum and the body revealed some patchy intense erythema and moderate edema, and biopsies were obtained and sent to stain for H pylori. The pylorus was of normal contour and shape, it was intubated with ease and the scope was advanced all the way to the second portion of the duodenum. The scope was then withdrawn slowly, mucosa overlying the proximal second portion and the duodenal bulb appeared to be within normal limits. The scope was then withdrawn back into the stomach and retroflexed, and previously described hiatal hernia was also noted in the retroflexed position. The scope was then straightened out, it was subsequently withdrawn. The patient tolerated the procedure well. IMPRESSION: 1. Distal esophagitis, mild. 2. Moderate-sized hiatal hernia. 3. Gastritis, biopsied, biopsies sent to stain for Helicobacter pylori. PLAN: Follow up histology. Continue Protonix 40 mg one p.o. a.c. b.i.d. Abhilash Mead MD [facility] [place] /[id number] cc: Willie Varela MD
--- NOTE | 2019-11-29 13:30 | NUR ---
ASSESSMENT: Spiritual concern Pt's son concerned about type of food served to his mom. Pt's son at bedside. Intervention: Provided hospitality and suggested pt's son to communicate his concern with RN/FNS. Provided information on how t reach marketing graphics specialist if needed. Outcome: Pt's son expressed appreciation for support. No need to follow at this time. MITCHEL DYE Director Of [employer] [facility] Department O: [phone]
[2019-11-29] MEDS ORDERED: FENTANYL CITRATE/PF 100MCG/2 ML INJ ONE (14:55)
[2019-11-29] MEDS ORDERED: MIDAZOLAM HCL 2 MG/2 ML VIAL ONE (14:55)
[2019-11-29] MEDS ORDERED: ATROPINE SULFATE 1 MG/ML VIAL ONE (15:05)
[2019-11-29] MEDS ORDERED: PROPOFOL IV EMULSION 10 MG/ML 50 ML VIAL ONE (15:05)
[2019-11-29] MEDS: AMLODIPINE BESYLATE 10 MG TAB PO SCH (16:55)
[2019-11-29] MEDS: METOPROLOL TARTRATE 25 MG TAB PO SCH (16:58)
--- NOTE | 2019-11-29 19:25 | NUR ---
Received change of shift report from AM shift. Walking rounds completed.
--- NOTE | 2019-11-29 20:44 | NUR ---
Patient in bed on right side. No noted pain or discomfort at this time. AAOx1. Left midline dry and intact.
--- NOTE | 2019-11-29 23:58 | NUR ---
Patient resting quitly with no c/o at this time. Continue monitor. Turned on left side.
[2019-11-30] VITALS (7 sets, daily range): BP systolic 120–149; BP diastolic 56–101
[2019-11-30] MEDS: PANTOPRAZOLE 40 MG 10ML VIAL IV SCH ×2 (01:30→15:06)
[2019-11-30 06:11] LABS: BASOPHILS % 0.4 % (0.0-1.0); EOSINOPHILS # (AUTO) 0.8 (0.0-0.4); EOSINOPHILS % 9.6 % (0.0-6.0); HEMATOCRIT 25.9 % (34.2-44.1); LYMPHOCYTES # (AUTO) 1.5 (1.0-3.2); LYMPHOCYTES % 19.2 % (18.0-39.1); MEAN CORPUSCULAR HEMOGLOBIN 28.6 pg (28-32); MEAN CORPUSCULAR HGB CONC 30.9 g/dL (31-35); MEAN CORPUSCULAR VOLUME 92.5 fL (81-99); MONOCYTES # (AUTO) 1.2 (0.2-0.8); MONOCYTES % 15.2 % (4.4-11.3); NEUTROPHILS # (AUTO) 4.2 (2.1-6.9); NEUTROPHILS % 54.3 % (38.7-80.0); PLATELET COUNT 331 x10e3/uL (140-360); RED CELL DISTRIBUTION WIDTH 15.5 % (11.7-14.4)
[2019-11-30 06:27] LABS: ALANINE AMINOTRANSFERASE 11 IU/L (0-55); ALBUMIN/GLOBULIN RATIO 0.6 (0.8-2.0); ALKALINE PHOSPHATASE 61 IU/L (40-150); ANION GAP 9.8 mmol/L (8-16); BLOOD UREA NITROGEN 5 mg/dL (7-26); BUN/CREATININE RATIO 8 (6-25); CALCIUM 7.7 mg/dL (8.4-10.2); CARBON DIOXIDE 21 mmol/L (22-29); CHLORIDE 119 mmol/L (98-107); CREATININE, SERUM 0.61 mg/dL (0.57-1.11); EST GLOMERULAR FILTRATION RATE > 60 ML/MIN (60-); GLUCOSE 83 mg/dL (74-118); MAGNESIUM 2.2 MG/DL (1.3-2.1); SODIUM 147 mmol/L (136-145)
[2019-11-30 06:30] LABS: POTASSIUM 2.8 mmol/L (3.5-5.1)
--- NOTE | 2019-11-30 06:35 | NUR ---
Patient has KCL of 2.8. Called Dr Varela waiting for call back.
[2019-11-30] MEDS ORDERED: POTASSIUM CHLORIDE 20 MEQ TAB CR PO ONE ×2 (08:10→14:00)
[2019-11-30] MEDS: METOPROLOL TARTRATE 25 MG TAB PO SCH ×2 (08:27→16:38)
[2019-11-30] MEDS: AMLODIPINE BESYLATE 10 MG TAB PO SCH (08:27)
[2019-11-30] MEDS ORDERED: AMLODIPINE BESYLATE 10 MG TAB PO SCH (09:00)
--- NOTE | 2019-11-30 12:35 | NUR ---
WOUND CARE CONSULT FOR 84 YO FEMALE HX OFGI BLEED AND UNSTAGEABLE SACRAL DECUBITUS JARED 11 ON STRICT PUP STATUS AND INTERVENTIONS AND ALTERNATING PRESSURE MATTRESS LABS: WBC-9.59 HGB_8.1 GLUCOSE-84 HEMA1C- SKIN ASSESSMENT COMPLETE PATIENT PRESENTS WITH SLOUDG COVERED UNSTAGEABLE SACRAL ULCERATION MEASURES 4CM X7CM X YELLOW SLOUGH COVER RECOMMENDATIONS: NURSING TO CONTINUE TO MAINTAIN STRICT PUP STATUS AND INTERVENTIONS AND ALTERNATING PRESSURE MATTRESS NURSING TO CONTINUE TO ASSIST PATIENT OUT OF BED FOR MEALS AND MUCH TOLERATED NURSING TO CONTINUE TO ASSIST PATIENT NEEDED WITH MEALS AND NUTRITIONAL SUPPLEMENTS TO ENSURE PROPER REQUIREMENTS FOR HEALING NURSING TO CONTINUE TO OFFLOAD FEET AND HEELS NEEDED WITH PILLOW SUSPENSION WHEN IN BED NURSING TO CLEAN UNSTAGEABLE SACRAL ULCERATION WITH NORMAL SALINE DAILY AND APPLY SANTYL OINTMENT AND ALLEVYN FOAM DRESSING Addendum: 11/30/19 at 1239 by Trace Coyne RN Amended: Links added.
[2019-11-30] MEDS: COLLAGENASE OINTMENT 30 GM TUBE TP SCH (15:06)
--- NOTE | 2019-11-30 17:16 | NUR ---
Talked to Dr Bev Mead regarding colonoscopy procedure, he said they tried several times and they couldn't prep for her for the procedure, per Dr Bev Mead if family helping her for prep he might be able to do that, Talked to her son at bed side, he said his sister probably come n help patient.
[2019-12-01] VITALS (8 sets, daily range): BP systolic 116–151; BP diastolic 56–82
[2019-12-01] MEDS ORDERED: BISACODYL 5 MG TAB EC PO ONE ×4 (00:45→02:15)
[2019-12-01] MEDS: PANTOPRAZOLE 40 MG 10ML VIAL IV SCH ×2 (03:38→14:10)
[2019-12-01] MEDS ORDERED: ONDANSETRON HCL INJ 2MG/ML 2ML 2 MG/ML VIAL IV STA (04:15)
[2019-12-01] MEDS ORDERED: ONDANSETRON HCL INJ 2MG/ML 2ML 2 MG/ML VIAL IV PRN (04:15)
[2019-12-01] MEDS ORDERED: CITRATE OF MAGNESIA 300ML BOTTLE PO ONE ×2 (04:15→07:30)
--- NOTE | 2019-12-01 06:18 | Progress Note ---
DATE: SUBJECTIVE: The patient did well overnight. No new issues. OBJECTIVE: VITAL SIGNS: Temperature 97.4, pulse 80, blood pressure 151/65, sats 100%. GENERAL: No apparent distress. CARDIOVASCULAR: Regular rate and rhythm. LUNGS: Decreased breath sounds. ABDOMEN: Good bowel sounds. Soft, nontender. EXTREMITIES: No clubbing or cyanosis. NEUROLOGIC: Moves all extremities x4. ASSESSMENT AND PLAN: 1. Anemia secondary to gastrointestinal bleed. Continue to monitor, but has been stable. 2. Hypokalemia. We will recheck her values and replace if necessary. 3. Hypertension. Continue with current care monitoring. 4. History of cerebrovascular accident. We will not be able to anticoagulate the patient due to the recent gastrointestinal bleed. 5. Weakness. Continue with physical therapy. Please see hospital chart for full details. MD JENNYFER Will/MIRIAM /[id number]
--- NOTE | 2019-12-01 07:25 | NUR ---
PATIENT ASSISTED WITH DIAPER CHANGE, REPOSITIONED IN BED. CALL LIGHT AT REACH.
[2019-12-01] MEDS: AMLODIPINE BESYLATE 10 MG TAB PO SCH (09:09)
[2019-12-01] MEDS: METOPROLOL TARTRATE 25 MG TAB PO SCH ×2 (09:09→17:15)
[2019-12-01] MEDS: COLLAGENASE OINTMENT 30 GM TUBE TP SCH (10:51)
--- NOTE | 2019-12-01 11:27 | NUR ---
PREPARATION FOR COLONOSCOPY IN PROGRESS, PATIENT REPOSITIONED IN BED, CALL LIGHT AT REACH.
[2019-12-01 11:30] LABS: BASOPHILS % 0.4 % (0.0-1.0); EOSINOPHILS # (AUTO) 0.4 (0.0-0.4); EOSINOPHILS % 5.1 % (0.0-6.0); HEMATOCRIT 23.8 % (34.2-44.1); HEMOGLOBIN 7.8 g/dL (12.0-16.0); LYMPHOCYTES # (AUTO) 1.4 (1.0-3.2); MEAN CORPUSCULAR HEMOGLOBIN 29.9 pg (28-32); MEAN CORPUSCULAR HGB CONC 32.8 g/dL (31-35); MEAN CORPUSCULAR VOLUME 91.2 fL (81-99); MONOCYTES # (AUTO) 1.1 (0.2-0.8); MONOCYTES % 13.5 % (4.4-11.3); NEUTROPHILS # (AUTO) 5.2 (2.1-6.9); NEUTROPHILS % 63.1 % (38.7-80.0); PLATELET COUNT 322 x10e3/uL (140-360); RED BLOOD COUNT 2.61 x10e6/uL (3.6-5.1); RED CELL DISTRIBUTION WIDTH 15.7 % (11.7-14.4)
[2019-12-01 11:55] LABS: ALANINE AMINOTRANSFERASE 10 IU/L (0-55); ALBUMIN/GLOBULIN RATIO 0.6 (0.8-2.0); ALKALINE PHOSPHATASE 72 IU/L (40-150); ANION GAP 7.6 mmol/L (8-16); BLOOD UREA NITROGEN 5 mg/dL (7-26); BUN/CREATININE RATIO 8 (6-25); CALCIUM 7.8 mg/dL (8.4-10.2); CARBON DIOXIDE 22 mmol/L (22-29); CHLORIDE 120 mmol/L (98-107); CREATININE, SERUM 0.61 mg/dL (0.57-1.11); EST GLOMERULAR FILTRATION RATE > 60 ML/MIN (60-); GLUCOSE 93 mg/dL (74-118); MAGNESIUM 2.2 MG/DL (1.3-2.1); POTASSIUM 3.6 mmol/L (3.5-5.1); SODIUM 146 mmol/L (136-145)
--- NOTE | 2019-12-01 12:34 | NUR ---
PATIENT OFF UNIT TO OR.
--- NOTE | 2019-12-01 13:50 | NUR ---
PATIENT BACK TO UNIT FROM OR. HAD A COLONOSCOPY. 5 CLIPS PLACED, SIGMOID MASS FOUND PER PACU NURSE. ALERT AND VERBALLY RESPONSIVE, NO DISTRESS NOTED. V/S 95.8-69-20-132/62 AND 96% ON RA.
--- NOTE | 2019-12-01 13:55 | Operative Report ---
DATE OF PROCEDURE: 12/01/2019 SURGEON: Abhilash Mead MD PROCEDURES PERFORMED: Colonoscopy with polypectomy, hemoclipping, and biopsies INDICATIONS FOR COLONOSCOPY: Rectal bleeding, anemia. MEDICATIONS: The patient was done under MAC, please see anesthesiologist's note. PROCEDURE IN DETAIL: With the patient in left lateral decubitus position, a flexible fiberoptic Olympus colonoscope was inserted into the rectum with ease, and at approximately 30 cm from the anal verge, it could not be advanced any further as the sigmoid colon was very sharply angulated and fixed. The scope was then withdrawn, and the flexible fiberoptic Olympus gastroscope was inserted into the rectum and advanced in and out fashion all the way to the cecum. Mucosa overlying the cecum appeared to be within normal limits. The scope was then withdrawn slowly, and diverticular disease was noted to be pretty much scattered throughout, but primarily involving the ascending as well as the left colon. An approximately 1.8 cm sessile lesion was noted in the proximal ascending colon, that was removed per hot snare polypectomy and site was hemoclipped x3. The scope was then withdrawn slowly. Other than for diverticulosis, the rest of the ascending colon appeared to be within normal limits. Approximately, 1.5-cm sessile polypoid lesion in the distal transverse colon was removed per hot snare polypectomy and site was hemoclipped x2. The descending colon grossly appeared to be within normal limits. Approximately, 2.8-cm semi-circumferential sessile mass was noted in the sigmoid colon approximately 35 cm from the anal verge, biopsies of which were positive for adenocarcinoma. Site was tattooed. The rest of the sigmoid grossly appeared to be within normal limits. The scope was then retroflexed into the distal rectum and the area around the dentate line appeared to be within normal limits. The scope was then straightened out, was subsequently withdrawn. The patient tolerated the procedure well. IMPRESSION: 1. Diverticulosis. 2. Approximately, 1.8-cm sessile polyp, proximal ascending colon, removed per hot snare polypectomy and site was hemoclipped x3. 3. Approximately, 1.5-cm sessile polyp, distal transverse colon, removed per hot snare polypectomy and site was hemoclipped x2. 4. Large approximately 2.8-cm semi-circumferential mass approximately 35 cm from the anal verge, biopsies of which were positive for adenocarcinoma. PLAN: Follow up histology. The patient will need a General Surgical consult. MD SHERIF Vasquez/MIRIAM /[id number] cc: Willie Varela MD
[2019-12-01] MEDS ORDERED: PROPOFOL IV EMULSION 10 MG/ML 50 ML VIAL ONE (15:13)
--- NOTE | 2019-12-01 16:16 | NUR ---
IN BED RESTING WITH NO S/S OF DISCOMFORT.
--- NOTE | 2019-12-01 21:30 | NUR ---
PATIENT RESTING IN BED IN STABLE CONDITION, NO SIGNS OF DISTRESS NOTED. PATIENT IS RESTING COMFORTABLY AND SHOWS NO SIGNS OF PAIN AT THIS TIME. BED IS IN LOWEST POSITION, BOTH SIDE RAILS ARE UP, BED ALARM IS ON, WILL CONTINUE TO MONITOR.
[2019-12-02] VITALS (8 sets, daily range): BP systolic 123–158; BP diastolic 58–88
[2019-12-02] MEDS: PANTOPRAZOLE 40 MG 10ML VIAL IV SCH ×2 (02:14→13:13)
--- NOTE | 2019-12-02 05:48 | Progress Note ---
DATE: SUBJECTIVE: The patient did well overnight. No new issues. 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 OBJECTIVE: VITAL SIGNS: Temperature 97.0, pulse 82, blood pressure 131/61, and sats 95%. GENERAL: No apparent distress. CARDIOVASCULAR: Regular rate and rhythm. LUNGS: Clear to auscultation bilaterally. ABDOMEN: Good bowel sounds. Soft, nontender. No distention. No peritoneal signs. EXTREMITIES: No clubbing or cyanosis. NEUROLOGIC: Moves all extremities x4. ASSESSMENT/PLAN: 1. Colon mass. We will consult Dr. Nba Holder for possible surgical removal. 2. Anemia. Continue to monitor. 3. GI bleed, appears to be resolved. 4. Coumadin toxicity is resolved. 5. Hypertension. Continue with current care and monitoring. Please see hospital chart for full details. MD JENNYFER Will/MIRIAM /[id number]
[2019-12-02 05:49] LABS: BASOPHILS % 0.4 % (0.0-1.0); EOSINOPHILS # (AUTO) 0.2 (0.0-0.4); EOSINOPHILS % 1.6 % (0.0-6.0); HEMATOCRIT 24.5 % (34.2-44.1); HEMOGLOBIN 7.7 g/dL (12.0-16.0); LYMPHOCYTES # (AUTO) 1.4 (1.0-3.2); MEAN CORPUSCULAR HEMOGLOBIN 29.3 pg (28-32); MEAN CORPUSCULAR HGB CONC 31.4 g/dL (31-35); MEAN CORPUSCULAR VOLUME 93.2 fL (81-99); MONOCYTES % 9.5 % (4.4-11.3); NEUTROPHILS % 74.7 % (38.7-80.0); PLATELET COUNT 314 x10e3/uL (140-360); RED BLOOD COUNT 2.63 x10e6/uL (3.6-5.1); RED CELL DISTRIBUTION WIDTH 16.2 % (11.7-14.4)
[2019-12-02 06:10] LABS: ALANINE AMINOTRANSFERASE 10 IU/L (0-55); ALBUMIN/GLOBULIN RATIO 0.6 (0.8-2.0); ALKALINE PHOSPHATASE 74 IU/L (40-150); ANION GAP 8.8 mmol/L (8-16); BLOOD UREA NITROGEN 6 mg/dL (7-26); BUN/CREATININE RATIO 9 (6-25); CALCIUM 7.9 mg/dL (8.4-10.2); CARBON DIOXIDE 24 mmol/L (22-29); CHLORIDE 118 mmol/L (98-107); CREATININE, SERUM 0.64 mg/dL (0.57-1.11); EST GLOMERULAR FILTRATION RATE > 60 ML/MIN (60-); GLUCOSE 84 mg/dL (74-118); MAGNESIUM 2.1 MG/DL (1.3-2.1); POTASSIUM 3.8 mmol/L (3.5-5.1); SODIUM 147 mmol/L (136-145)
--- NOTE | 2019-12-02 06:46 | NUR ---
Bedside shift report received from night nurse. Patient is resting in bed. No acute distress noted. Call light within reach. Bed alarm on.
[2019-12-02] MEDS: METOPROLOL TARTRATE 25 MG TAB PO SCH ×2 (08:50→17:03)
[2019-12-02] MEDS: COLLAGENASE OINTMENT 30 GM TUBE TP SCH (08:51)
[2019-12-02] MEDS: AMLODIPINE BESYLATE 10 MG TAB PO SCH (08:51)
--- NOTE | 2019-12-02 12:34 | NUR ---
Nutrition Intervention Note RD Recommendation(s) for Physician: - ADAT to cardiac per MD. - Rec Ensure Enlive BID Plan of Care: RD following, monitoring for tolerance and adequacy, ONS rec Nutrition reason for involvement: f/u RD Assessment 12/01: Follow up: Pt was seen being fed by the SNOWBLOWER MECHANIC, the SNOWBLOWER MECHANIC reported that she was consuming the clear liquids. Pt remains somewhat confused at this time. Pt had a colonoscopy yesterday which showed a colon mass, pt was on clear liquids at time of visit, now she was been advanced to fulls. Per MD note, possible surgical removal of colon mass. Will continue to monitor. 11/26 Chart reviewed. 84yo F, who was admitted for anemia and GI bleed. Visited pt in the room. Family on bedside to provide info due to pts hx of dementia. Per family, pt has had poor appetite with decreased PO intake for several days at home. No complain of nausea or vomiting noted. Pt has some missing teeth and requires her food to be chopped finely. No swallowing issue reported by family. Pt usually drinks 1-2 Ensure daily to keep her weight up. Family has not noticed any recent weight loss. RD rec Ensure BID and family was agreeable. Will continue to monitor and follow. Principal Problems/Diagnoses: GI bleed, anemia PMH: Hypertension, dementia, reflux disease, hyperlipidemia, and DVT IVF: NaCl at 125mL/hr GI: abdomen soft, flat, non-tender, +flatus Skin: stage II pressure wound on buttock (No wound care consult) Labs: 12/01: Na 147, Cl 118, BUN 6, Ca 7.9 (11/26) K 3.4 L, Cl 111 H, Ca 7.8 L, iron 25 L, TIBC 162 L, Transferrin 116 L Meds: Protonix, milk of magnesia, zofran Ht: 65in Wt: 142lb BMI: 23.6kg/m2 IBW: 125lb +/- 10% Malnutrition Evaluation (11/26) The patient does not meet criteria for a specified degree of malnutrition at this time. Will re-evaluate at follow-up as appropriate. Energy intake: <75% of estimated energy requirements for less than 5 days Weight loss: No weight loss reported Fat loss: Mild some clavicle protrusion Muscle loss: No loss identified Supporting Evidence: Fluid accumulation: no accumulation identified Functional Status: no changes Nutrition Prescription (Diet Order): Cardiac diet Estimated Nutritional Needs: Calories: 1408 1600kcal (22-25kcal/kg/d) Weight used : CBW Protein : 64 96g (1-1.5g/kg/d) Weight used: CBW Diet Adequacy: Not meeting calorie needs, Not meeting protein needs Tolerance: Tolerating liquids Diet Education Needs Assessment: Diet education not indicated. Nutrition Care Level: mod Nutrition Diagnosis: Inadequate oral intake related to GI bleed as evidenced by poor PO intake and declined in appetite. Goal: Patient will meet 75-100% of estimated needs by follow up Progress: progressing Interventions: Modified diet, Commercial beverage Monitoring/Evaluation: Total energy intake, Total protein intake, Modified diet, Liquid supplement, Weight change Signed: Julia Guido RD, LD Addendum: 12/02/19 at 1236 by Julia Guido DIET Pt is no longer on IVF per EMR. Addendum: 12/02/19 at 1354 by Julia Guido DIET Per EMR, pt is still clear liquids-recommend Ensure Clear BID.
--- NOTE | 2019-12-02 14:54 | NUR ---
WOUND CARE SCREENING FOLLOW UP CONSULT FOR 84 YO FEMALE HX OF GI BLEED AND UNSTAGEABLE SACRAL DECUBITUS JARED 11 ON STRICT PUP STATUS AND INTERVENTIONS AND ALTERNATING PRESSURE MATTRESS LABS: WBC-10.68 HGB_7.7 GLUCOSE-84 SKIN ASSESSMENT COMPLETE PATIENT PRESENTS WITH SLOUGH COVERED UNSTAGEABLE SACRAL ULCERATION MEASURES 4CM X7CM; 100% COVERED WITH YELLOW. CONTINUE WITH CURRENT WOUND CARE RECOMMENDATIONS: NURSING TO CONTINUE TO MAINTAIN STRICT PUP STATUS AND INTERVENTIONS AND ALTERNATING PRESSURE MATTRESS NURSING TO CONTINUE TO ASSIST PATIENT OUT OF BED FOR MEALS AND MUCH TOLERATED NURSING TO CONTINUE TO ASSIST PATIENT NEEDED WITH MEALS AND NUTRITIONAL SUPPLEMENTS TO ENSURE PROPER REQUIREMENTS FOR HEALING NURSING TO CONTINUE TO OFFLOAD FEET AND HEELS NEEDED WITH PILLOW SUSPENSION WHEN IN BED NURSING TO CLEAN UNSTAGEABLE SACRAL ULCERATION WITH NORMAL SALINE DAILY AND APPLY SANTYL OINTMENT AND ALLEVYN FOAM DRESSING. Addendum: 12/02/19 at 1458 by Stephanie Bustillo RN Amended: Links added.
--- NOTE | 2019-12-02 18:56 | NUR ---
Bedside shift report given to oncoming nurse. Patient is resting in bed. No acute distress noted at this time. Call light within reach. Bed in the lowest position. Bed alarm on.
--- NOTE | 2019-12-02 21:30 | NUR ---
PATIENT RESTING IN BED IN STABLE CONDITION, NO SIGNS OF DISTRESS NOTED. PATIENT IS RESTING COMFORTABLY AND SHOWS NO SIGNS OF PAIN AT THIS TIME. PATIENT SWALLOWED ALL OF MILK OF MAGNESIA AND TOLERATED IT WELL. BED IS IN LOWEST POSITION, BOTH SIDE RAILS ARE UP, BED ALARM IS ON, WILL CONTINUE TO MONITOR.
[2019-12-02] MEDS: MAGNESIUM HYDROXIDE 30 ML UDC PO SCH (22:50)
[2019-12-03] VITALS (8 sets, daily range): BP systolic 131–143; BP diastolic 55–66
[2019-12-03] MEDS: PANTOPRAZOLE 40 MG 10ML VIAL IV SCH ×2 (02:01→14:00)
--- NOTE | 2019-12-03 05:52 | Progress Note ---
DATE: SUBJECTIVE: The patient did well overnight. No new issues. OBJECTIVE: VITAL SIGNS: Temperature 96.6, pulse 71, blood pressure 125/66, and sats 97%. GENERAL: No apparent distress. CARDIOVASCULAR: Regular rate and rhythm. LUNGS: Clear to auscultation bilaterally. ABDOMEN: Good bowel sounds. Soft, nontender. EXTREMITIES: No clubbing or cyanosis. NEUROLOGIC: Moves all extremities x4. ASSESSMENT/PLAN: 1. Gastrointestinal bleed. Continue current care. 2. Colon mass. We will continue current care with Dr. Nba Holder. 3. Hypertension. Continue with current care and monitoring. 4. Anemia. We will check a CBC. 5. Reflux disease. Continue with her medication. 6. History of cerebrovascular accident. The patient is unfortunately not able to be anticoagulated due to gastrointestinal bleed. Please see hospital chart for full details. MD JENNYFER Will/MIRIAM /[id number]
[2019-12-03 05:57] LABS: BASOPHILS % 0.3 % (0.0-1.0); EOSINOPHILS # (AUTO) 0.4 (0.0-0.4); EOSINOPHILS % 4.6 % (0.0-6.0); HEMATOCRIT 26.1 % (34.2-44.1); HEMOGLOBIN 8.1 g/dL (12.0-16.0); LYMPHOCYTES # (AUTO) 1.5 (1.0-3.2); LYMPHOCYTES % 16.9 % (18.0-39.1); MEAN CORPUSCULAR HEMOGLOBIN 29.5 pg (28-32); MEAN CORPUSCULAR VOLUME 94.9 fL (81-99); MONOCYTES # (AUTO) 0.9 (0.2-0.8); MONOCYTES % 10.9 % (4.4-11.3); NEUTROPHILS # (AUTO) 5.8 (2.1-6.9); NEUTROPHILS % 66.7 % (38.7-80.0); PLATELET COUNT 303 x10e3/uL (140-360); RED BLOOD COUNT 2.75 x10e6/uL (3.6-5.1); RED CELL DISTRIBUTION WIDTH 16.4 % (11.7-14.4)
[2019-12-03 06:06] LABS: INR 1.27; PROTHROMBIN TIME 16.7 seconds (11.9-14.5)
[2019-12-03 06:14] LABS: ALANINE AMINOTRANSFERASE 10 IU/L (0-55); ALBUMIN/GLOBULIN RATIO 0.6 (0.8-2.0); ALKALINE PHOSPHATASE 77 IU/L (40-150); ANION GAP 9.7 mmol/L (8-16); BLOOD UREA NITROGEN 6 mg/dL (7-26); BUN/CREATININE RATIO 10 (6-25); CALCIUM 7.9 mg/dL (8.4-10.2); CARBON DIOXIDE 25 mmol/L (22-29); CHLORIDE 116 mmol/L (98-107); CREATININE, SERUM 0.62 mg/dL (0.57-1.11); EST GLOMERULAR FILTRATION RATE > 60 ML/MIN (60-); GLUCOSE 77 mg/dL (74-118); POTASSIUM 3.7 mmol/L (3.5-5.1); SODIUM 147 mmol/L (136-145)
--- NOTE | 2019-12-03 07:28 | NUR ---
PATIENT IN BED RESTING WITH NO S/S OF DISTRESS. SWELLING REMAINS TO LEFT LEG. BED IN LOWER POSITION, CALL LIGHT AT REACH.
[2019-12-03] MEDS: AMLODIPINE BESYLATE 10 MG TAB PO SCH (09:25)
[2019-12-03] MEDS: COLLAGENASE OINTMENT 30 GM TUBE TP SCH (09:25)
[2019-12-03] MEDS: METOPROLOL TARTRATE 25 MG TAB PO SCH ×2 (09:25→17:12)
--- NOTE | 2019-12-03 11:15 | NUR ---
PATIENT ASSISTED WITH DIAPER CHANGE, REPOSITIONED IN BED. CALL LIGHT AT REACH.
--- NOTE | 2019-12-03 11:45 | NUR ---
IMM SIGNED AND ON CHART COPY LEFT WITH PATIENT GAVE CARD FOR QUESTIONS AND OR CONCERNS.
--- NOTE | 2019-12-03 12:54 | NUR ---
SON CALLED BACK AND STATES PLAN IS HOME WITH [facility] [phone]
--- NOTE | 2019-12-03 16:12 | NUR ---
PATIENT IN BED WITH HEAD OF BED ELEVATED, NO S/S OF DISCOMFORT OBSERVED.
[2019-12-03] MEDS: MAGNESIUM HYDROXIDE 30 ML UDC PO SCH (21:00)
[2019-12-04] VITALS (8 sets, daily range): BP systolic 130–156; BP diastolic 59–80
[2019-12-04] MEDS: PANTOPRAZOLE 40 MG 10ML VIAL IV SCH ×2 (01:00→13:30)
--- NOTE | 2019-12-04 01:00 | NUR ---
LEFT MIDLINE DRESSING CHANGE USING STERILE TECHNIQUE
--- NOTE | 2019-12-04 06:12 | NUR ---
INFORMED DR. RAMON REGARDING 6 BEATS OF V TACH. ORDERED CBC AND CMP
[2019-12-04 06:59] LABS: BASOPHILS % 0.4 % (0.0-1.0); EOSINOPHILS # (AUTO) 0.3 (0.0-0.4); EOSINOPHILS % 3.2 % (0.0-6.0); HEMATOCRIT 29.2 % (34.2-44.1); HEMOGLOBIN 9.1 g/dL (12.0-16.0); LYMPHOCYTES # (AUTO) 1.2 (1.0-3.2); LYMPHOCYTES % 13.7 % (18.0-39.1); MEAN CORPUSCULAR HGB CONC 31.2 g/dL (31-35); MONOCYTES # (AUTO) 1.1 (0.2-0.8); MONOCYTES % 11.6 % (4.4-11.3); NEUTROPHILS # (AUTO) 6.4 (2.1-6.9); NEUTROPHILS % 70.7 % (38.7-80.0); PLATELET COUNT 286 x10e3/uL (140-360); RED BLOOD COUNT 3.14 x10e6/uL (3.6-5.1); RED CELL DISTRIBUTION WIDTH 16.1 % (11.7-14.4)
[2019-12-04 07:19] LABS: ALANINE AMINOTRANSFERASE 11 IU/L (0-55); ALBUMIN 2.2 g/dL (3.5-5.0); ALBUMIN/GLOBULIN RATIO 0.6 (0.8-2.0); ALKALINE PHOSPHATASE 86 IU/L (40-150); ANION GAP 10.6 mmol/L (8-16); BLOOD UREA NITROGEN 6 mg/dL (7-26); BUN/CREATININE RATIO 10 (6-25); CARBON DIOXIDE 24 mmol/L (22-29); CHLORIDE 116 mmol/L (98-107); CREATININE, SERUM 0.62 mg/dL (0.57-1.11); EST GLOMERULAR FILTRATION RATE > 60 ML/MIN (60-); GLUCOSE 78 mg/dL (74-118); POTASSIUM 3.6 mmol/L (3.5-5.1); SODIUM 147 mmol/L (136-145)
--- NOTE | 2019-12-04 07:26 | Progress Note ---
DATE: SUBJECTIVE: The patient is here for gastrointestinal bleeding and the patient had a colonoscopy done by Dr. Mead. A consult has been done to Dr. 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 The patient with also hypertension and history of CVA, history of DVT. Yesterday, Dr. Holder did talk to the patient and the family. The patient's daughter would like to proceed with surgery and bowel prep has been started. The patient is scheduled for sigmoid colectomy on Friday. Currently, the patient's telemetry did show one episode of ventricular tachycardia with four runs otherwise asymptomatic. The patient does not have any symptoms at this time. Also, the patient has no complaints at this time. Bleeding has resolved. MEDICATIONS: She is on pantoprazole, metoprolol, and amlodipine. OBJECTIVE: VITAL SIGNS: Temperature is 97, pulse of 98, respirations of 18, blood pressure is 130/80, and O2 at 96%. HEENT: Normocephalic and atraumatic. CVS: S1 and S2 normal. Regular rate and rhythm. ABDOMEN: Nontender and nondistended. LUNGS: Clear. EXTREMITIES: No edema. LABORATORY DATA: Laboratory values when done on show hemoglobin of 5.1, hematocrit 26.1. Chemistries; sodium 147, potassium 3.7, BUN of 6, and creatinine 0.62. ASSESSMENT AND PLAN: Ms. Dixie Bassett with: 1. Gastrointestinal bleed from the ulcer. Adenocarcinoma. Plan, colon resection on Friday. 2. Anemia and Coumadin toxicity, which is resolved. 3. History of cerebrovascular accident. 4. History of DVT. 5. History of hypertension. Currently, the patient is off her anticoagulations. We will continue monitoring her and surgery planned for Friday. MD BRIA AlvarezJ/MODL /[id number]
[2019-12-04] MEDS: METOPROLOL TARTRATE 25 MG TAB PO SCH ×2 (09:32→18:02)
[2019-12-04] MEDS: AMLODIPINE BESYLATE 10 MG TAB PO SCH (09:32)
[2019-12-04] MEDS: COLLAGENASE OINTMENT 30 GM TUBE TP SCH (09:32)
--- NOTE | 2019-12-04 19:30 | NUR ---
received report from day nurse. patient is resting comfortably in the bed. bed is in lowest position and call light is within reach. No signs of pain or discomfort noted from patient. Telemetry is attached. will continue to monitor patient.
[2019-12-04] MEDS: MAGNESIUM HYDROXIDE 30 ML UDC PO SCH ×2 (21:00→21:27)
[2019-12-05] VITALS: BP 147/63
[2019-12-05] MEDS: PANTOPRAZOLE 40 MG 10ML VIAL IV SCH ×2 (01:51→13:07)
[2019-12-05 04:00] VITALS: BP 145/65
[2019-12-05 07:08] LABS: ALANINE AMINOTRANSFERASE 12 IU/L (0-55); ALBUMIN 2.2 g/dL (3.5-5.0); ALBUMIN/GLOBULIN RATIO 0.6 (0.8-2.0); ALKALINE PHOSPHATASE 82 IU/L (40-150); ANION GAP 11.4 mmol/L (8-16); BLOOD UREA NITROGEN 6 mg/dL (7-26); BUN/CREATININE RATIO 9 (6-25); CALCIUM 7.9 mg/dL (8.4-10.2); CARBON DIOXIDE 25 mmol/L (22-29); CHLORIDE 115 mmol/L (98-107); CREATININE, SERUM 0.65 mg/dL (0.57-1.11); EST GLOMERULAR FILTRATION RATE > 60 ML/MIN (60-); GLUCOSE 71 mg/dL (74-118); POTASSIUM 3.4 mmol/L (3.5-5.1); SODIUM 148 mmol/L (136-145)
--- NOTE | 2019-12-05 07:30 | NUR ---
RECD PT IN BED SLEEPING NO S/S DISCOMFORT.
[2019-12-05 07:51] LABS: BASOPHILS % 0.4 % (0.0-1.0); EOSINOPHILS # (AUTO) 0.3 (0.0-0.4); EOSINOPHILS % 3.2 % (0.0-6.0); HEMATOCRIT 26.8 % (34.2-44.1); HEMOGLOBIN 8.4 g/dL (12.0-16.0); LYMPHOCYTES # (AUTO) 1.2 (1.0-3.2); LYMPHOCYTES % 13.4 % (18.0-39.1); MEAN CORPUSCULAR HEMOGLOBIN 28.9 pg (28-32); MEAN CORPUSCULAR HGB CONC 31.3 g/dL (31-35); MEAN CORPUSCULAR VOLUME 92.1 fL (81-99); MONOCYTES # (AUTO) 0.8 (0.2-0.8); MONOCYTES % 8.8 % (4.4-11.3); NEUTROPHILS # (AUTO) 6.6 (2.1-6.9); NEUTROPHILS % 73.8 % (38.7-80.0); PLATELET COUNT 319 x10e3/uL (140-360); RED BLOOD COUNT 2.91 x10e6/uL (3.6-5.1); RED CELL DISTRIBUTION WIDTH 15.9 % (11.7-14.4)
[2019-12-05 08:00] VITALS: BP 131/62
--- NOTE | 2019-12-05 08:04 | Progress Note ---
DATE: SUBJECTIVE: The patient is an 84-year-old female, who came in with acute rectal bleeding, was found to have sigmoid tumor, scheduled for sigmoid colectomy tomorrow. The patient has had EGD and colonoscopy showing the tumor. Currently, afebrile and asymptomatic. No chest pain. No shortness of breath. The patient is in good spirits. MEDICATIONS: At this time, metoprolol, neomycin, pantoprazole, amlodipine. The patient is also having Santyl for ulcer. The patient's anticoagulation has been stopped for chronic DVT and stroke. OBJECTIVE: VITAL SIGNS: Currently, temperature is 98.5, pulse of 71, respirations of 20, blood pressure is 145/65, pulse oximetry of 99%. HEENT: Normocephalic and atraumatic. Pupils are reactive to light and accommodation. CVS: S1 and S2 are normal. Regular rate and rhythm. ABDOMEN: Nontender, nondistended. EXTREMITIES: No clubbing, no cyanosis, no edema. ASSESSMENT: Ms. Colin with: 1. Gastrointestinal bleed. Plan, colon resection. 2. Anemia and Coumadin toxicity, resolved. 3. History of cerebrovascular accident, history of deep venous thrombosis. We will stop her anticoagulation in lieu of surgery pending. 4. History of hypertension. Continue on antihypertensive with no anticoagulation. Further recommendation per clinical course normal. We will continue to monitor the patient along with consultants. MD BRIA AlvarezJ/MODL /[id number]
[2019-12-05] MEDS: METOPROLOL TARTRATE 25 MG TAB PO SCH ×2 (09:00→17:09)
[2019-12-05] MEDS: AMLODIPINE BESYLATE 10 MG TAB PO SCH (09:00)
[2019-12-05] MEDS: COLLAGENASE OINTMENT 30 GM TUBE TP SCH (10:43)
[2019-12-05] MEDS: NEOMYCIN SULFATE 500 MG TAB PO SCH ×2 (13:07→22:12)
[2019-12-05 16:00] VITALS: BP 128/62
--- NOTE | 2019-12-05 19:19 | NUR ---
PT UP IN BED NO DISTRESS NTOED ,DENIES PAIN
[2019-12-05 20:00] VITALS: BP 122/55
[2019-12-05] MEDS: MAGNESIUM HYDROXIDE 30 ML UDC PO SCH ×2 (21:00→22:11)
[2019-12-05 22:19] VITALS: BP 122/55
[2019-12-06] VITALS (8 sets, daily range): BP systolic 103–154; BP diastolic 48–80
[2019-12-06] MEDS: PANTOPRAZOLE 40 MG 10ML VIAL IV SCH ×2 (01:35→21:00)
[2019-12-06] MEDS: NEOMYCIN SULFATE 500 MG TAB PO SCH (04:54)
--- NOTE | 2019-12-06 05:18 | Progress Note ---
DATE: SUBJECTIVE: The patient did well overnight. No new issues. OBJECTIVE: VITAL SIGNS: Temperature 97.1, pulse 97, blood pressure 154/66, and sats 97%. GENERAL: No apparent distress. CARDIOVASCULAR: Regular rate and rhythm. LUNGS: Clear to auscultation bilaterally. ABDOMEN: Good bowel sounds. Soft and nontender. EXTREMITIES: No clubbing or cyanosis. NEUROLOGIC: Moves all extremities x4. ASSESSMENT AND PLAN: 1. Sigmoid mass. The patient is scheduled for sigmoidectomy today. 2. Hypertension. Continue current care monitoring. 3. Anemia. Continue to monitor. 4. Hypokalemia. We will check her labs. Please see hospital chart for full details. MD JENNYFER Will/MIRIAM /[id number]
--- NOTE | 2019-12-06 07:26 | NUR ---
PATIENT IN BED RESTING WITH NO S/S OF DISTRESS. REMAINS NPO FOR A PROCEDURE. BED IN LOWER POSITION, CALL LIGHT AT REACH.
[2019-12-06 07:29] LABS: BASOPHILS % 0.4 % (0.0-1.0); EOSINOPHILS # (AUTO) 0.1 (0.0-0.4); EOSINOPHILS % 1.4 % (0.0-6.0); HEMOGLOBIN 8.8 g/dL (12.0-16.0); LYMPHOCYTES # (AUTO) 1.1 (1.0-3.2); LYMPHOCYTES % 12.5 % (18.0-39.1); MEAN CORPUSCULAR HEMOGLOBIN 29.2 pg (28-32); MEAN CORPUSCULAR HGB CONC 31.4 g/dL (31-35); MONOCYTES # (AUTO) 0.9 (0.2-0.8); MONOCYTES % 11.1 % (4.4-11.3); NEUTROPHILS # (AUTO) 6.2 (2.1-6.9); PLATELET COUNT 219 x10e3/uL (140-360); RED BLOOD COUNT 3.01 x10e6/uL (3.6-5.1); RED CELL DISTRIBUTION WIDTH 16.1 % (11.7-14.4)
--- NOTE | 2019-12-06 07:40 | NUR ---
PATIENT OFF UNIT TO OR.
[2019-12-06 07:53] LABS: ALANINE AMINOTRANSFERASE 12 IU/L (0-55); ALBUMIN/GLOBULIN RATIO 0.6 (0.8-2.0); ALKALINE PHOSPHATASE 77 IU/L (40-150); ANION GAP 10.9 mmol/L (8-16); BLOOD UREA NITROGEN 5 mg/dL (7-26); BUN/CREATININE RATIO 8 (6-25); CALCIUM 7.6 mg/dL (8.4-10.2); CARBON DIOXIDE 24 mmol/L (22-29); CHLORIDE 118 mmol/L (98-107); CREATININE, SERUM 0.65 mg/dL (0.57-1.11); EST GLOMERULAR FILTRATION RATE > 60 ML/MIN (60-); GLUCOSE 82 mg/dL (74-118); POTASSIUM 3.9 mmol/L (3.5-5.1); SODIUM 149 mmol/L (136-145)
[2019-12-06] MEDS ORDERED: HEPARIN SOD/SOD CHLORIDE 1,000 ML ONE (08:08)
[2019-12-06] MEDS: COLLAGENASE OINTMENT 30 GM TUBE TP SCH (09:00)
[2019-12-06] MEDS ORDERED: LEVOFLOXACIN 500MG/D5W 100ML 100 ML IV ONE (09:00)
[2019-12-06] MEDS: AMLODIPINE BESYLATE 10 MG TAB PO SCH (09:00)
[2019-12-06] MEDS: METOPROLOL TARTRATE 25 MG TAB PO SCH ×2 (09:00→17:00)
[2019-12-06] MEDS ORDERED: ALBUMIN 25% 12.5GM 50ML 50 ML IV ONE (10:11)
[2019-12-06] MEDS: SODIUM CHLORIDE 0.9% 1000ML 1,000 ML IV SCH ×2 (11:18→21:00)
[2019-12-06] MEDS ORDERED: ACETAMINOPHEN 1000 MG/100 ML IV PRN (11:30)
[2019-12-06] MEDS ORDERED: ONDANSETRON HCL INJ 2MG/ML 2ML 2 MG/ML VIAL IV PRN (11:30)
--- NOTE | 2019-12-06 13:00 | NUR ---
PATIENT TO BE TRANSFERRED FROM OR TO [facility] ROOM 188. REPORT CALLED AND GIVEN TO RECEIVING NURSE. ALL PERSONAL BELONGINGS TAKEN TO NEW ROOM.
--- NOTE | 2019-12-06 13:24 | Operative Report ---
DATE OF PROCEDURE: 12/06/2019 SURGEON: Nba Holder MD PREOPERATIVE DIAGNOSIS: Carcinoma of the descending colon. POSTOPERATIVE DIAGNOSIS: Carcinoma of the descending colon. OPERATION PERFORMED: Exploratory laparotomy, extensive lysis of adhesions, mobilization of the splenic flexure with resection of the splenic flexure of the colon. BUSINESS CONTINUITY COORDINATOR: Dr. Mihir Holdre and TAMMY Ramirez. ANESTHESIA: General. COMPLICATIONS: None. ESTIMATED BLOOD LOSS: 200 mL. DESCRIPTION OF PROCEDURE: With the patient lying in bed in the supine position under good general endotracheal anesthesia, the abdomen was prepped with Betadine solution and draped in the usual manner. A lower midline incision was made and was carried down through the subcutaneous tissue and through the midline fascia. The peritoneum was then opened and the abdomen was entered. Upon entering the peritoneal cavity, extensive adhesions were encountered from the patient's previous surgery. The small bowel was totally plastered to the anterior abdominal wall. This was slowly and carefully from the anterior abdominal wall so that we could actually get access to the intraabdominal cavity. There was a lot of adhesions to the pelvis from the patient's previous hysterectomy. Nonetheless, all the small bowel was then slowly and carefully and the adhesions were all taken down without any problems. After this was done, exploration of the left colon revealed that the tube was actually at the level of the splenic flexure. The left colon was then mobilized of the lateral gutter and the splenic flexure was then brought down using the Ultrex device. The stomach and transverse colon were then with the Ultrex device and the lesser sac was entered and the splenic flexure was totally and completely mobilized. The transverse colon was then divided about its mid aspect with an application of OSMIN-75 stapler and similarly the top of the sigmoid colon was divided with an application of OSMIN-75 stapler. The mesentery of the colon was then divided with the Ultrex device and the specimen was sent for pathological examination. Both the sigmoid colon and the transverse colon were then mobilized so that they would reach without any tension and then the anastomosis was performed with another application of OSMIN-75 stapler bringing the midtransverse colon down to the upper sigmoid colon. The remaining opening of the colon was closed with a TA-60 stapler. Gloves and instruments were changed. The anastomosis was then reinforced with interrupted sutures of 3-0 Vicryl. The abdomen was then copiously irrigated and perfect hemostasis was ascertained. All the excess fluid was aspirated and the abdomen was then closed in layers. The peritoneum was closed with a running suture of #1 Vicryl. The midline fascia was closed with a running suture of #1 Vicryl. Subcutaneous tissue was approximated with 3-0 chromic and the skin was closed with clips. A dressing was applied. The sponge, lap, and needle count was correct. The patient tolerated the procedure well and returned to the recovery room in stable condition. MD PAULA Lee/MIRIAM /[id number]
[2019-12-06] MEDS ORDERED: FENTANYL CITRATE/PF 100MCG/2 ML INJ ONE (15:57)
[2019-12-06] MEDS ORDERED: NEOSTIGMINE 1 MG/ML 10ML VIAL ONE (17:28)
[2019-12-06] MEDS ORDERED: ONDANSETRON HCL INJ 2MG/ML 2ML 2 MG/ML VIAL ONE (17:28)
[2019-12-06] MEDS ORDERED: ROCURONIUM BROMIDE 10 MG/ML 5ML VIAL IV ONE (17:28)
[2019-12-06] MEDS ORDERED: EPHEDRINE SULFATE INJ 50 MG/ML VIAL ONE (17:28)
[2019-12-06] MEDS ORDERED: LIDOCAINE HCL 2% LOCAL INJ 5 ML SDV VIAL INJ ONE (17:28)
[2019-12-06] MEDS ORDERED: GLYCOPYRROLATE INJ 0.2 MG/ML VIAL ONE (17:28)
[2019-12-06] MEDS ORDERED: SEVOFLURANE INHAL SOLN 250 ML PEN BTL ONE (17:28)
[2019-12-06] MEDS ORDERED: PHENYLEPHRINE HCL 1% 10 MG/ML VIAL ONE (17:28)
[2019-12-06] MEDS ORDERED: ETOMIDATE 2 MG/ML 10 ML INJ IV ONE (17:28)
[2019-12-07] VITALS (9 sets, daily range): BP systolic 106–118; BP diastolic 50–73
[2019-12-07] MEDS: SODIUM CHLORIDE 0.9% 1000ML 1,000 ML IV SCH ×3 (07:18→23:35)
[2019-12-07 07:42] LABS: BASOPHILS % 0.1 % (0.0-1.0); EOSINOPHILS % 0.1 % (0.0-6.0); HEMATOCRIT 23.2 % (34.2-44.1); HEMOGLOBIN 7.1 g/dL (12.0-16.0); LYMPHOCYTES # (AUTO) 1.3 (1.0-3.2); MEAN CORPUSCULAR HEMOGLOBIN 28.5 pg (28-32); MEAN CORPUSCULAR HGB CONC 30.6 g/dL (31-35); MEAN CORPUSCULAR VOLUME 93.2 fL (81-99); MONOCYTES # (AUTO) 1.7 (0.2-0.8); MONOCYTES % 6.7 % (4.4-11.3); NEUTROPHILS # (AUTO) 22.3 (2.1-6.9); PLATELET COUNT 204 x10e3/uL (140-360); RED BLOOD COUNT 2.49 x10e6/uL (3.6-5.1)
[2019-12-07 08:04] LABS: ANION GAP 12.5 mmol/L (8-16); BLOOD UREA NITROGEN 10 mg/dL (7-26); BUN/CREATININE RATIO 12 (6-25); CALCIUM 7.2 mg/dL (8.4-10.2); CARBON DIOXIDE 19 mmol/L (22-29); CHLORIDE 124 mmol/L (98-107); CREATININE, SERUM 0.81 mg/dL (0.57-1.11); EST GLOMERULAR FILTRATION RATE > 60 ML/MIN (60-); GLUCOSE 127 mg/dL (74-118); POTASSIUM 3.5 mmol/L (3.5-5.1); SODIUM 152 mmol/L (136-145)
[2019-12-07] MEDS: METOPROLOL TARTRATE 25 MG TAB PO SCH ×2 (08:48→16:11)
[2019-12-07] MEDS: AMLODIPINE BESYLATE 10 MG TAB PO SCH (08:48)
[2019-12-07] MEDS ORDERED: LEVOFLOXACIN 500MG/D5W 100ML 100 ML IV ONE (09:00)
[2019-12-07 09:41] LABS: ANISOCYTOSIS SLIGHT; HYPOCHROMASIA N; LYMPHOCYTES % (MANUAL) 3 % (19-48); MONOCYTES % (MANUAL) 5 % (3.4-9.0); NEUTROPHILS % (MANUAL) 92 % (40-74); PLATELET ESTIMATE ADEQUATE; RBC MORPHOLOGY COMMENT NORMAL
[2019-12-07 09:42] LABS: PLATELET MORPHOLOGY COMMENT NORMAL
[2019-12-07] MEDS: COLLAGENASE OINTMENT 30 GM TUBE TP SCH (10:33)
[2019-12-07] MEDS: HYDROMORPHONE 1MG/1ML INJ IV PRN (10:50)
--- NOTE | 2019-12-07 16:50 | NUR ---
Nutrition Intervention Note RD Recommendation(s) for Physician: - ADAT to cardiac per MD. - Rec Ensure Enlive TID when diet advanced. Plan of Care: RD following, monitoring for tolerance and adequacy, ONS rec Nutrition reason for involvement: f/u RD Assessment 12/06: Follow up. Pt s/p surgery yesterday for sigmoidectomy and colectomy 2/2 tumor. Pt currently NPO post-operatively, previously eating 25-100% of CL diet prior to surgery. Chart reviewed. Unable to speak with RN at time of visit. Consider TPN if unable to advance diet soon. Will continue to monitor. 12/01: Follow up: Pt was seen being fed by the [employer], the [employer] reported that she was consuming the clear liquids. Pt remains somewhat confused at this time. Pt had a colonoscopy yesterday which showed a colon mass, pt was on clear liquids at time of visit, now she was been advanced to fulls. Per MD note, possible surgical removal of colon mass. Will continue to monitor. 11/26 Chart reviewed. 84yo F, who was admitted for anemia and GI bleed. Visited pt in the room. Family on bedside to provide info due to pts hx of dementia. Per family, pt has had poor appetite with decreased PO intake for several days at home. No complain of nausea or vomiting noted. Pt has some missing teeth and requires her food to be chopped finely. No swallowing issue reported by family. Pt usually drinks 1-2 Ensure daily to keep her weight up. Family has not noticed any recent weight loss. RD rec Ensure BID and family was agreeable. Will continue to monitor and follow. Principal Problems/Diagnoses: GI bleed, anemia PMH: Hypertension, dementia, reflux disease, hyperlipidemia, and DVT IVF: NS at 100 GI: abdomen soft, flat, non-tender, +flatus. LBM 12/05 x2 Skin: stage II pressure wound on buttock Labs: 12/06: Na 152, K 3.5, BUN 10, Cr 0.81, Gluc 127 12/01: Na 147, Cl 118, BUN 6, Ca 7.9 (11/26) K 3.4 L, Cl 111 H, Ca 7.8 L, iron 25 L, TIBC 162 L, Transferrin 116 L Meds: Protonix, dilaudid, zofran Ht: 65in Wt: 142lb BMI: 23.6kg/m2 IBW: 125lb +/- 10% Malnutrition Evaluation (11/26) The patient does not meet criteria for a specified degree of malnutrition at this time. Will re-evaluate at follow-up as appropriate. Energy intake: <75% of estimated energy requirements for less than 5 days Weight loss: No weight loss reported Fat loss: Mild some clavicle protrusion Muscle loss: No loss identified Supporting Evidence: Fluid accumulation: no accumulation identified Functional Status: no changes Nutrition Prescription (Diet Order): Cardiac diet Estimated Nutritional Needs: Calories: 1408 1600kcal (22-25kcal/kg/d) Weight used : CBW Protein : 64 96g (1-1.5g/kg/d) Weight used: CBW Diet Adequacy: Not meeting calorie needs, Not meeting protein needs Tolerance: Tolerance pending, previously tolerating CL diet Diet Education Needs Assessment: Diet education not indicated. Nutrition Care Level: mod Nutrition Diagnosis: Inadequate oral intake related to GI bleed as evidenced by poor PO intake and declined in appetite. Goal: Patient will meet 75-100% of estimated needs by follow up Progress: progressing Interventions: Modified diet, Commercial beverage Monitoring/Evaluation: Total energy intake, Total protein intake, Modified diet, Liquid supplement, Weight change Signed: Dali Corley RD, LD, [facility]
[2019-12-07 17:01] LABS: BASOPHILS % 0.1 % (0.0-1.0); HEMOGLOBIN 7.6 g/dL (12.0-16.0); LYMPHOCYTES # (AUTO) 1.5 (1.0-3.2); LYMPHOCYTES % 6.2 % (18.0-39.1); MEAN CORPUSCULAR HEMOGLOBIN 28.3 pg (28-32); MEAN CORPUSCULAR HGB CONC 29.2 g/dL (31-35); MEAN CORPUSCULAR VOLUME 96.7 fL (81-99); MONOCYTES # (AUTO) 2.2 (0.2-0.8); MONOCYTES % 8.9 % (4.4-11.3); NEUTROPHILS # (AUTO) 20.8 (2.1-6.9); PLATELET COUNT 204 x10e3/uL (140-360); RED BLOOD COUNT 2.69 x10e6/uL (3.6-5.1); RED CELL DISTRIBUTION WIDTH 16.2 % (11.7-14.4)
--- NOTE | 2019-12-07 17:34 | NUR ---
dr canales made aware of labs this am. orders to redraw this afternoon. updated on new labs. no new orders at this time. continue to monitor. pt vs stable, no s/s distress
--- NOTE | 2019-12-07 17:57 | NUR ---
j raya rounded. aware of low urine output. added 250 ml bolus at 100ml hr in addition to ivf @100. equalling 200ml/hr for 2.5hrs
[2019-12-07] MEDS ORDERED: SODIUM CHLORIDE 0.9% 250ML 250 ML IV ONE (18:00)
[2019-12-07] MEDS: PANTOPRAZOLE 40 MG 10ML VIAL IV SCH (20:40)
[2019-12-08] VITALS (8 sets, daily range): BP systolic 103–142; BP diastolic 49–82
[2019-12-08] MEDS: HYDROMORPHONE 1MG/1ML INJ IV PRN (03:52)
[2019-12-08 05:55] LABS: BASOPHILS % 0.1 % (0.0-1.0); LYMPHOCYTES # (AUTO) 1.2 (1.0-3.2); LYMPHOCYTES % 5.6 % (18.0-39.1); MEAN CORPUSCULAR HEMOGLOBIN 28.4 pg (28-32); MEAN CORPUSCULAR VOLUME 91.7 fL (81-99); MONOCYTES # (AUTO) 1.7 (0.2-0.8); MONOCYTES % 7.9 % (4.4-11.3); NEUTROPHILS # (AUTO) 18.9 (2.1-6.9); NEUTROPHILS % 85.4 % (38.7-80.0); PLATELET COUNT 181 x10e3/uL (140-360); RED BLOOD COUNT 2.29 x10e6/uL (3.6-5.1)
[2019-12-08 06:07] LABS: HEMOGLOBIN 6.5 g/dL (12.0-16.0)
[2019-12-08] MEDS ORDERED: SODIUM CHLORIDE 0.9% 250ML 250 ML IV ONE (06:15)
--- NOTE | 2019-12-08 06:28 | NUR ---
PATIENT HGB CAME BACK AT 6.5, NOTIFIED DR. MUKHERJEE AND WAS ORDERED TO GIVE 1 UNIT PRBCS, NO CONSENT FOR BLOOD ON THE CHART CALLED PTS DAUGHTER AND LEFT MESSAGE FOR CALL BACK.
[2019-12-08 06:34] LABS: ANION GAP 9.6 mmol/L (8-16); BLOOD UREA NITROGEN 15 mg/dL (7-26); BUN/CREATININE RATIO 16 (6-25); CALCIUM 7.2 mg/dL (8.4-10.2); CARBON DIOXIDE 20 mmol/L (22-29); CHLORIDE 126 mmol/L (98-107); CREATININE, SERUM 0.93 mg/dL (0.57-1.11); EST GLOMERULAR FILTRATION RATE > 60 ML/MIN (60-); GLUCOSE 97 mg/dL (74-118); POTASSIUM 3.6 mmol/L (3.5-5.1); SODIUM 152 mmol/L (136-145)
[2019-12-08] MEDS: AMLODIPINE BESYLATE 10 MG TAB PO SCH (08:27)
[2019-12-08] MEDS: METOPROLOL TARTRATE 25 MG TAB PO SCH ×2 (08:27→16:25)
[2019-12-08] MEDS: LEVOFLOXACIN 500MG/D5W 100ML 100 ML IV SCH (08:46)
[2019-12-08] MEDS: COLLAGENASE OINTMENT 30 GM TUBE TP SCH (08:46)
[2019-12-08] MEDS: SODIUM CHLORIDE 0.9% 1000ML 1,000 ML IV SCH (08:46)
[2019-12-08] MEDS ORDERED: SODIUM CHLORIDE 0.9% 250ML 250 ML ONE (15:53)
--- NOTE | 2019-12-08 17:20 | NUR ---
pt has been stable throughout shift. more alert than previous shifts with pt. per night nurse and note, pt to get 1 unit of blood. J Donald rounded and updated to 2 units PRBC total, plus iv lasix after each unit. pt midline began leaking at insertion site, unable to retain. line removed. peripheral IV placed, MD updated. no new midline at this time
[2019-12-08] MEDS ORDERED: FUROSEMIDE INJ 10 MG/ML 2 ML VIAL IV PRN (18:00)
[2019-12-08] MEDS: PANTOPRAZOLE 40 MG 10ML VIAL IV SCH (22:02)
[2019-12-08] MEDS: BISACODYL 10 MG SUPP PR SCH (22:02)
[2019-12-08] MEDS ORDERED: FUROSEMIDE INJ 10 MG/ML 4 ML VIAL ONE (23:56)
[2019-12-09] VITALS (8 sets, daily range): BP systolic 132–164; BP diastolic 63–92
[2019-12-09] MEDS: SODIUM CHLORIDE 0.9% 1000ML 1,000 ML IV SCH ×3 (00:12→21:27)
--- NOTE | 2019-12-09 05:41 | Progress Note ---
DATE: SUBJECTIVE: The patient did well overnight. She did have a lower hemoglobin level yesterday, so she was given 1 unit of blood. OBJECTIVE: VITAL SIGNS: Temperature 98.2 , pulse 78, blood pressure 152/65, sats are 100%. GENERAL: No apparent distress, lying in bed. CARDIOVASCULAR: Regular rate and rhythm. LUNGS: Clear to auscultation bilaterally. ABDOMEN: Good bowel sounds. Soft and nontender. EXTREMITIES: No clubbing or cyanosis. NEUROLOGIC: Moves all extremities x4. ASSESSMENT AND PLAN: 1. Anemia. We will check a CBC after her transfusion. 2. Leukocytosis. Continue to monitor, since it is improving. Continue with antibiotics. 3. Hypertension. Continue with current care and monitoring. 4. Reflux disease. Continue with Protonix. 5. Status post colon cancer removal. Continue with postoperative care. Please see hospital chart for full details. MD JENNYFER Will/MIRIAM /[id number]
[2019-12-09 06:39] LABS: BASOPHILS % 0.2 % (0.0-1.0); EOSINOPHILS % 0.2 % (0.0-6.0); HEMATOCRIT 30.2 % (34.2-44.1); HEMOGLOBIN 9.9 g/dL (12.0-16.0); LYMPHOCYTES # (AUTO) 1.1 (1.0-3.2); LYMPHOCYTES % 6.3 % (18.0-39.1); MEAN CORPUSCULAR HEMOGLOBIN 28.7 pg (28-32); MEAN CORPUSCULAR HGB CONC 32.8 g/dL (31-35); MEAN CORPUSCULAR VOLUME 87.5 fL (81-99); MONOCYTES % 5.8 % (4.4-11.3); NEUTROPHILS # (AUTO) 15.5 (2.1-6.9); NEUTROPHILS % 86.7 % (38.7-80.0); PLATELET COUNT 165 x10e3/uL (140-360); RED BLOOD COUNT 3.45 x10e6/uL (3.6-5.1); RED CELL DISTRIBUTION WIDTH 15.4 % (11.7-14.4)
--- NOTE | 2019-12-09 06:40 | NUR ---
Patient remains stable, received the second unit of blood.
[2019-12-09 06:56] LABS: ALANINE AMINOTRANSFERASE 23 IU/L (0-55); ALBUMIN 1.9 g/dL (3.5-5.0); ALBUMIN/GLOBULIN RATIO 0.5 (0.8-2.0); ALKALINE PHOSPHATASE 78 IU/L (40-150); ANION GAP 12.8 mmol/L (8-16); BLOOD UREA NITROGEN 13 mg/dL (7-26); BUN/CREATININE RATIO 17 (6-25); CALCIUM 7.6 mg/dL (8.4-10.2); CARBON DIOXIDE 18 mmol/L (22-29); CHLORIDE 125 mmol/L (98-107); CREATININE, SERUM 0.76 mg/dL (0.57-1.11); EST GLOMERULAR FILTRATION RATE > 60 ML/MIN (60-); GLUCOSE 77 mg/dL (74-118); SODIUM 153 mmol/L (136-145)
[2019-12-09 06:57] LABS: POTASSIUM 2.8 mmol/L (3.5-5.1)
--- NOTE | 2019-12-09 07:00 | NUR ---
BEDSIDE REPORT RECEIVED PT IN STABLE CONDITION, IVF INFUSING TO R AC NO SS OF INFILTRATION NOTED, POWER TO BSD WITH YELLOW URINE NOTED, DSG TO ABDOMEN C/D/I, NO OTHER CO VOCIED CALL LIGHT IN REACH WILL CONTINUE TO MONITOR
[2019-12-09] MEDS ORDERED: POTASSIUM CHLORIDE 20 MEQ TAB CR PO SCH ×2 (07:45→12:00)
[2019-12-09] MEDS: BISACODYL 10 MG SUPP PR SCH (08:25)
[2019-12-09] MEDS: LEVOFLOXACIN 500MG/D5W 100ML 100 ML IV SCH (08:25)
[2019-12-09] MEDS: METOPROLOL TARTRATE 25 MG TAB PO SCH ×2 (08:25→17:10)
[2019-12-09] MEDS: AMLODIPINE BESYLATE 10 MG TAB PO SCH (08:25)
[2019-12-09] MEDS: COLLAGENASE OINTMENT 30 GM TUBE TP SCH (09:00)
[2019-12-09] MEDS: PANTOPRAZOLE 40 MG 10ML VIAL IV SCH (20:38)
[2019-12-09] MEDS: HYDROMORPHONE 1MG/1ML INJ IV PRN (23:10)
[2019-12-10] VITALS (9 sets, daily range): BP systolic 128–150; BP diastolic 54–79
--- NOTE | 2019-12-10 07:10 | Progress Note ---
DATE: SUBJECTIVE: The patient did well overnight. No new issues. OBJECTIVE: VITAL SIGNS: Temperature 98.0, pulse 93, blood pressure 150/71, saturations 96%. GENERAL: No apparent distress. CARDIOVASCULAR: Regular rate and rhythm. LUNGS: Decreased breath sounds. ABDOMEN: Good bowel sounds. Soft, nontender. EXTREMITIES: No clubbing or cyanosis. NEUROLOGIC: Nonfocal. ASSESSMENT AND PLAN: 1. Status post colon cancer surgery. Continue with postoperative care. 2. Hypokalemia, was replaced yesterday, so recheck labs. 3. Leukocytosis. Check CBC. 4. Anemia. Check CBC. She is doing well post transfusion. 5. Reflux disease. Continue with her Protonix. 6. Hypertension. Continue with her metoprolol and amlodipine. Please see hospital chart for full details. MD JENNYFER Will/MIRIAM /[id number]
[2019-12-10] MEDS: LEVOFLOXACIN 500MG/D5W 100ML 100 ML IV SCH (08:17)
[2019-12-10] MEDS: METOPROLOL TARTRATE 25 MG TAB PO SCH ×2 (08:17→16:58)
[2019-12-10] MEDS: AMLODIPINE BESYLATE 10 MG TAB PO SCH (08:18)
[2019-12-10] MEDS: HYDROCODONE/APAP 7.5MG-325MG 1 EA TAB PO PRN (08:43)
[2019-12-10 09:19] LABS: BASOPHILS % 0.1 % (0.0-1.0); EOSINOPHILS % 0.2 % (0.0-6.0); HEMATOCRIT 32.5 % (34.2-44.1); HEMOGLOBIN 10.3 g/dL (12.0-16.0); LYMPHOCYTES # (AUTO) 0.7 (1.0-3.2); LYMPHOCYTES % 6.2 % (18.0-39.1); MEAN CORPUSCULAR HEMOGLOBIN 28.4 pg (28-32); MEAN CORPUSCULAR HGB CONC 31.7 g/dL (31-35); MEAN CORPUSCULAR VOLUME 89.5 fL (81-99); MONOCYTES # (AUTO) 0.5 (0.2-0.8); MONOCYTES % 4.6 % (4.4-11.3); NEUTROPHILS # (AUTO) 9.7 (2.1-6.9); NEUTROPHILS % 88.3 % (38.7-80.0); PLATELET COUNT 163 x10e3/uL (140-360); RED BLOOD COUNT 3.63 x10e6/uL (3.6-5.1)
[2019-12-10] MEDS: SODIUM CHLORIDE 0.9% 1000ML 1,000 ML IV SCH ×3 (09:25→18:07)
[2019-12-10 09:41] LABS: ALANINE AMINOTRANSFERASE 22 IU/L (0-55); ALBUMIN 1.8 g/dL (3.5-5.0); ALBUMIN/GLOBULIN RATIO 0.5 (0.8-2.0); ALKALINE PHOSPHATASE 70 IU/L (40-150); ANION GAP 11.6 mmol/L (8-16); BLOOD UREA NITROGEN 10 mg/dL (7-26); BUN/CREATININE RATIO 14 (6-25); CALCIUM 7.5 mg/dL (8.4-10.2); CARBON DIOXIDE 19 mmol/L (22-29); CHLORIDE 128 mmol/L (98-107); CREATININE, SERUM 0.69 mg/dL (0.57-1.11); EST GLOMERULAR FILTRATION RATE > 60 ML/MIN (60-); GLUCOSE 96 mg/dL (74-118); MAGNESIUM 1.9 MG/DL (1.3-2.1); POTASSIUM 3.6 mmol/L (3.5-5.1); SODIUM 155 mmol/L (136-145)
[2019-12-10] MEDS ORDERED: COLLAGENASE OINTMENT 30 GM TUBE TP SCH (15:00)
--- NOTE | 2019-12-10 16:33 | NUR ---
Nutrition Intervention Note RD Recommendation(s) for Physician: - Advance to GI soft diet when medically appropriate. - Rec Ensure Enlive TID when diet is advanced. Plan of Care: RD following, monitoring for tolerance and adequacy, ONS rec Nutrition reason for involvement: follow up RD Assessment 12/09: Follow up. Pt was on clear liquids at time of visit and is now on a full liquid diet. Spoke to RN due to pts hx of dementia. RN reported pt is tolerating liquids but is not consuming much; therefore, pt was ordered Ensure clear TID by nurse. Will continue to monitor. 12/06: Follow up. Pt s/p surgery yesterday for sigmoidectomy and colectomy 2/2 tumor. Pt currently NPO post-operatively, previously eating 25-100% of CL diet prior to surgery. Chart reviewed. Unable to speak with RN at time of visit. Consider TPN if unable to advance diet soon. Will continue to monitor. 12/01: Follow up: Pt was seen being fed by the [employer], the [employer] reported that she was consuming the clear liquids. Pt remains somewhat confused at this time. Pt had a colonoscopy yesterday which showed a colon mass, pt was on clear liquids at time of visit, now she was been advanced to fulls. Per MD note, possible surgical removal of colon mass. Will continue to monitor. 11/26 Chart reviewed. 84yo F, who was admitted for anemia and GI bleed. Visited pt in the room. Family on bedside to provide info due to pts hx of dementia. Per family, pt has had poor appetite with decreased PO intake for several days at home. No complain of nausea or vomiting noted. Pt has some missing teeth and requires her food to be chopped finely. No swallowing issue reported by family. Pt usually drinks 1-2 Ensure daily to keep her weight up. Family has not noticed any recent weight loss. RD rec Ensure BID and family was agreeable. Will continue to monitor and follow. Principal Problems/Diagnoses: GI bleed, anemia PMH: Hypertension, dementia, reflux disease, hyperlipidemia, and DVT GI: abdomen soft, flat, non-tender, +flatus. LBM 12/05 x2 Skin: pt has unstageable sacral ulceration per wound care note Labs: 12/09: Na 155, Ca 7.5 12/06: Na 152, K 3.5, BUN 10, Cr 0.81, Gluc 127 12/01: Na 147, Cl 118, BUN 6, Ca 7.9 (11/26) K 3.4 L, Cl 111 H, Ca 7.8 L, iron 25 L, TIBC 162 L, Transferrin 116 L Meds: antibiotic, protonix, laix IV fluids: NaCl @ 75 mL/hr Ht: 65in Wt: 141 lbs (12/02) 142lb (11/25) BMI: 23.5kg/m2 IBW: 125lb +/- 10% Malnutrition Evaluation (12/09) The patient does not meet criteria for a specified degree of malnutrition at this time. Will re-evaluate at follow-up as appropriate. Energy intake: <50% of estimated energy needs for > 5 days Weight loss: No weight loss reported Fat loss: Mild some clavicle protrusion Muscle loss: No loss identified Supporting Evidence: Fluid accumulation: no accumulation identified Functional Status: no changes Nutrition Prescription (Diet Order): full liquids Estimated Nutritional Needs: Calories: 1410 1602 kcal (22-25kcal/kg/d) Weight used : CBW Protein : 77 96g (1.2-1.5g/kg/d) Weight used: CBW Diet Adequacy: Not meeting calorie needs, Not meeting protein needs Tolerance: Tolerance pending, previously tolerating CL diet Diet Education Needs Assessment: Diet education not indicated. Nutrition Care Level: moderate Nutrition Diagnosis: Inadequate oral intake related to GI bleed as evidenced by poor PO intake and declined in appetite. Goal: Patient will meet 75-100% of estimated needs by follow up Progress: progressing Interventions: Modified diet, Commercial beverage Monitoring/Evaluation: Total energy intake, Total protein intake, Modified diet, Liquid supplement, Weight change Signed: Netta Staley, JYALON, LD
--- NOTE | 2019-12-10 17:24 | NUR ---
Informed Dr. Varela of patient's low output of urine. New order for 500ml fluid bolus. New fluids hung and bolus infusing.
[2019-12-10] MEDS: PANTOPRAZOLE 40 MG 10ML VIAL IV SCH (19:39)
[2019-12-11] VITALS (8 sets, daily range): BP systolic 123–148; BP diastolic 61–82
[2019-12-11 05:06] LABS: BASOPHILS % 0.1 % (0.0-1.0); EOSINOPHILS % 0.1 % (0.0-6.0); HEMATOCRIT 34.8 % (34.2-44.1); HEMOGLOBIN 10.9 g/dL (12.0-16.0); LYMPHOCYTES # (AUTO) 0.9 (1.0-3.2); LYMPHOCYTES % 6.1 % (18.0-39.1); MEAN CORPUSCULAR HGB CONC 31.3 g/dL (31-35); MEAN CORPUSCULAR VOLUME 89.5 fL (81-99); MONOCYTES # (AUTO) 0.6 (0.2-0.8); NEUTROPHILS # (AUTO) 13.7 (2.1-6.9); PLATELET COUNT 166 x10e3/uL (140-360); RED BLOOD COUNT 3.89 x10e6/uL (3.6-5.1)
[2019-12-11 05:41] LABS: ALANINE AMINOTRANSFERASE 23 IU/L (0-55); ALBUMIN 1.8 g/dL (3.5-5.0); ALBUMIN/GLOBULIN RATIO 0.5 (0.8-2.0); ALKALINE PHOSPHATASE 77 IU/L (40-150); ANION GAP 10.2 mmol/L (8-16); BLOOD UREA NITROGEN 10 mg/dL (7-26); BUN/CREATININE RATIO 16 (6-25); CALCIUM 7.8 mg/dL (8.4-10.2); CARBON DIOXIDE 17 mmol/L (22-29); CHLORIDE 131 mmol/L (98-107); CREATININE, SERUM 0.63 mg/dL (0.57-1.11); EST GLOMERULAR FILTRATION RATE > 60 ML/MIN (60-); GLUCOSE 84 mg/dL (74-118); POTASSIUM 3.2 mmol/L (3.5-5.1); SODIUM 155 mmol/L (136-145)
[2019-12-11 07:33] LABS: ANISOCYTOSIS SLIGHT; BAND NEUTROPHILS % (MANUAL) 3 %; BURR CELLS MODERATE; LYMPHOCYTES % (MANUAL) 5 % (19-48); MONOCYTES % (MANUAL) 4 % (3.4-9.0); NEUTROPHILS % (MANUAL) 88 % (40-74); PLATELET ESTIMATE ADEQUATE; PLATELET MORPHOLOGY COMMENT NORMAL; POIKILOCYTOSIS SLIGHT; RBC MORPHOLOGY COMMENT ABNORMAL; SCHISTOCYTES FEW
[2019-12-11] MEDS: LEVOFLOXACIN 500MG/D5W 100ML 100 ML IV SCH (08:17)
[2019-12-11] MEDS: METOPROLOL TARTRATE 25 MG TAB PO SCH ×2 (08:18→17:05)
[2019-12-11] MEDS: AMLODIPINE BESYLATE 10 MG TAB PO SCH (08:18)
[2019-12-11] MEDS ORDERED: POTASSIUM CHLORIDE 20MEQ/15ML UDC PO NR (12:15)
[2019-12-11] MEDS: COLLAGENASE 5 GM TUBE TP SCH (13:28)
--- NOTE | 2019-12-11 16:45 | NUR ---
Dr Varela notified of increasing in swelling to left extremities. doppler ordered.
[2019-12-11] MEDS: DEXTROSE 5% 1,000 ML IV SCH (17:54)
[2019-12-11] MEDS: PANTOPRAZOLE 40 MG 10ML VIAL IV SCH (21:37)
[2019-12-12] VITALS (12 sets, daily range): BP systolic 115–152; BP diastolic 56–88
--- NOTE | 2019-12-12 01:30 | NUR ---
NOTIFIED BUSINESS SYSTEM CONSULTANT THAT STAT DOPPLER ON PT STILL HAS NOT BEEN DONE PER ORDER PRIOR TO SHIFT, OFFGOING NURSE STATED THAT DOPPLER ORDER NOTIFICATION WAS GIVEN BEFORE HE LEFT. BUSINESS SYSTEM CONSULTANT TO NOTIFY DEPT TO DO DOPPLER. WILL CONT TO MONITOR PATIENT.
[2019-12-12] MEDS: HYDROMORPHONE 1MG/1ML INJ IV PRN (01:59)
--- NOTE | 2019-12-12 02:23 | Diagnostic Imaging Report ---
Abdomen/KUB INDICATION: ^abd distension ^20191212 ^0150 ^Y COMPARISON: CT abdomen/pelvis 11/26/2019. FINDINGS: Portable, supine image obtained at 0152 hours. Medical Devices: Cholecystectomy clips in the right upper quadrant are stable. A hemostatic clip is located in the hepatic flexure of the colon. Midline abdominal wall eri have been applied. Bowel: Mildly distended small bowel loops in the left hemiabdomen. No dilatation. There is gaseous distention of the right colon without dilatation. No pneumatosis. Free air: None Abdominal calcifications: Diffuse arterial calcifications Organomegaly: None Lung bases: Left lung base is clear Bones: Diffuse demineralization. Treated compression deformity of L1 is stable. IMPRESSION: Mild small bowel ileus. Signed by: Dr. Maribell Montenegro MD on 12/12/2019 2:19 AM
[2019-12-12] MEDS ORDERED: BISACODYL 10 MG SUPP PR ONE (02:45)
[2019-12-12] MEDS ORDERED: ENOXAPARIN 30 MG/0.3 ML SYR SC STA (03:25)
--- NOTE | 2019-12-12 03:26 | NUR ---
DOPPLER TECH TOLD NURSE PT HAS CHRONIC LEG DVTS BUT THAT LEFT ARM NOW SHOWING OCCLUSION. CALLED AND NOTIFIED DR. MUKHERJEE AND ORDERED TO GIVE ONE TIME DOSE LOVENOX 30MG SC AND WILL CONT TO MONITOR FOR BLEEDING.
[2019-12-12] MEDS: DEXTROSE 5% 1,000 ML IV SCH ×2 (04:41→19:25)
--- NOTE | 2019-12-12 08:43 | Progress Note ---
DATE: SUBJECTIVE: The patient did well without any issues, but due to her swelling she had Dopplers done that showed her lower extremity swelling could be due to chronic DVTs. She did have a new upper extremity DVT and since the patient's GI bleeding is resolved due to the removal of the tumor and we had reinstituted her Lovenox to see how she does. OBJECTIVE: VITAL SIGNS: Stable. She is afebrile. GENERAL: No apparent distress, lying in bed. CARDIOVASCULAR: Regular rate and rhythm. LUNGS: Clear to auscultation bilaterally. ABDOMEN: Good bowel sounds. Soft and nontender. EXTREMITIES: No clubbing or cyanosis. NEUROLOGIC: Moves all extremities x4. ASSESSMENT AND PLAN: 1. Deep vein thrombosis. We will restart Lovenox to see how she does. 2. Anemia. Continue to monitor. 3. Colon cancer hopefully surgically excised. 4. Ileus. We will check a KUB. Please see hospital chart for full details. MD JENNYFER Will/MIRIAM /[id number]
[2019-12-12] MEDS: LEVOFLOXACIN 500MG/D5W 100ML 100 ML IV SCH (08:49)
[2019-12-12] MEDS: AMLODIPINE BESYLATE 10 MG TAB PO SCH (08:49)
[2019-12-12] MEDS: METOPROLOL TARTRATE 25 MG TAB PO SCH ×2 (08:49→17:00)
--- NOTE | 2019-12-12 11:32 | NUR ---
Rec'd PT FROM Olga SÁNCHEZ RN, TO ROOM 206 VIA BED, PT ALERT, NOT ABLE TO FOLLOW VERBAL COMMANDS, VS STABLE, PT ON RA, 20GAUG ETO RIGHT AC PATENT, VERTICAL INCISION WITH JUAN M OPEN TO AIR APPROXIMATED, ABD SOFT NO DISTENTION NOTED, ABD BINDER IN PLACE, UPPER HANDS CONTRACTED, PT NOT ABLE TO USE, LEFT UPPER AND LOWER EXTRIMITIES SWOLLEN, PT ON LOVENOX FOR + DVT, 16 F POWER TO GRAVITY DRAINING YELLOW URINE, TELE #11 NR, NO SIGN OF ACUTE DISTRESS NOTED, RN CONTINUES TO ASSES.
[2019-12-12] MEDS: COLLAGENASE 5 GM TUBE TP SCH (11:37)
--- NOTE | 2019-12-12 11:38 | NUR ---
patient transferred to floor. report called to veronica. vitals stable with no distress at tome of transfer.
--- NOTE | 2019-12-12 12:27 | Diagnostic Imaging Report ---
EXAM: Abdomen 1 Views INDICATION: ^ABD PAIN COMPARISON: Abdominal x-ray of the same date at 1:52 AM FINDINGS: Cholecystectomy clips in the right upper quadrant are again seen. A hemostatic clip is located in the hepatic flexure of the colon. Lower abdominal/pelvic surgical eri are again seen. Bowel: Mild gaseous distention of few bowel loops in the right hemiabdomen. No pneumoperitoneum. Abdominal calcifications: Vascular atherosclerotic calcifications Lung bases: Unremarkable. Partially seen median sternotomy wires. Bones: Diffuse demineralization. Again seen L1 vertebroplasty. Degenerative changes of the bilateral hips, lower lumbar spine, and SI joints. IMPRESSION: No significant interval change from prior exam. Signed by: Dr. Jon Bueno MD on 12/12/2019 12:23 PM
--- NOTE | 2019-12-12 13:30 | NUR ---
MULTIPLE ATTEMPTS TO FEED PT, PT ONLY HAD A FEW BITS OF FOOD, VERY POOR APPETITE
--- NOTE | 2019-12-12 18:30 | NUR ---
PT REFUSED TO EAT DINNER, NO SIGN OF ACUTE DISTRESS NOTED,
--- NOTE | 2019-12-12 19:05 | NUR ---
Patient visited in room during nursing rounds. Patient alert and oriented x1. Pt right hand and left contracted. Pt is bed bound and being turned Q2hr. Stage 2 sacral ulcer and covered with Allevyn foam dressing. S/P Sigmoid colon resection on 12/06/19. Vertical abdominal incision with eri in place. Abd wrapped with abd binder. Left lower extremity notably larger in size compared to right lower extremity. DVT noted on LUE and LLE and pt on Lovenox SC. Limb alert in place for left arm. Pt on IVF (Dextrose 5% at 75ml/hr). Bed alarm active. Call barnhart within reach.
[2019-12-12] MEDS: ENOXAPARIN 30 MG/0.3 ML SYR SC SCH (21:00)
[2019-12-12] MEDS: PANTOPRAZOLE 40 MG 10ML VIAL IV SCH (21:00)
[2019-12-13] VITALS (8 sets, daily range): BP systolic 108–128; BP diastolic 53–85
--- NOTE | 2019-12-13 00:55 | NUR ---
Dr. Abhilash Mead came and visited pt in room during rounds. MD aware of patient condition. Per assessment, patient's abdomen tender when pressed and tapped for bowel sound. Dr Mead ordered x1 dose of Dulcolax 20mg suppository.
[2019-12-13] MEDS ORDERED: BISACODYL 10 MG SUPP PR STA (01:01)
--- NOTE | 2019-12-13 01:20 | NUR ---
Pt given x1 dose of Dulcolax 20mg suppository as per MD order. Pt turned in bed as well.
--- NOTE | 2019-12-13 06:10 | Progress Note ---
DATE: SUBJECTIVE: The patient did well overnight, was transferred out of the IMCU to regular floor. OBJECTIVE: VITAL SIGNS: Temperature 97.2, pulse 74, blood pressure 117/59, sats 93%. GENERAL: No apparent distress lying in bed. CARDIOVASCULAR: Regular rate and rhythm. LUNGS: Clear to auscultation bilaterally. ABDOMEN: Good bowel sounds. Soft, nontender. EXTREMITIES: No clubbing or cyanosis. NEUROLOGIC: She moves all extremities x4. ASSESSMENT AND PLAN: 1. Deep venous thrombosis. Continue with Lovenox. 2. Leukocytosis. Continue to monitor. 3. Hypokalemia. We will check labs. 4. Anemia. Check a CBC. 5. Hypertension. Continue with current care and monitoring. 6. Status post colon cancer surgery. Continue with current postoperative care. Please see hospital chart for full details. MD JENNYFER Will/MIRIAM /[id number]
[2019-12-13 06:37] LABS: BASOPHILS % 0.1 % (0.0-1.0); EOSINOPHILS # (AUTO) 0.3 (0.0-0.4); EOSINOPHILS % 3.4 % (0.0-6.0); HEMATOCRIT 33.1 % (34.2-44.1); HEMOGLOBIN 10.5 g/dL (12.0-16.0); LYMPHOCYTES # (AUTO) 0.8 (1.0-3.2); MEAN CORPUSCULAR HEMOGLOBIN 28.2 pg (28-32); MEAN CORPUSCULAR HGB CONC 31.7 g/dL (31-35); MONOCYTES # (AUTO) 0.6 (0.2-0.8); MONOCYTES % 5.9 % (4.4-11.3); NEUTROPHILS # (AUTO) 7.6 (2.1-6.9); NEUTROPHILS % 81.5 % (38.7-80.0); PLATELET COUNT 171 x10e3/uL (140-360); RED BLOOD COUNT 3.72 x10e6/uL (3.6-5.1); RED CELL DISTRIBUTION WIDTH 16.4 % (11.7-14.4)
[2019-12-13 07:05] LABS: ALANINE AMINOTRANSFERASE 16 IU/L (0-55); ALBUMIN 1.6 g/dL (3.5-5.0); ALBUMIN/GLOBULIN RATIO 0.5 (0.8-2.0); ALKALINE PHOSPHATASE 74 IU/L (40-150); ANION GAP 7.8 mmol/L (8-16); BLOOD UREA NITROGEN 8 mg/dL (7-26); BUN/CREATININE RATIO 14 (6-25); CALCIUM 7.6 mg/dL (8.4-10.2); CARBON DIOXIDE 20 mmol/L (22-29); CHLORIDE 124 mmol/L (98-107); CREATININE, SERUM 0.58 mg/dL (0.57-1.11); EST GLOMERULAR FILTRATION RATE > 60 ML/MIN (60-); GLUCOSE 110 mg/dL (74-118); MAGNESIUM 1.7 MG/DL (1.3-2.1); SODIUM 149 mmol/L (136-145)
[2019-12-13 07:25] LABS: POTASSIUM 2.8 mmol/L (3.5-5.1)
[2019-12-13 07:43] LABS: BURR CELLS MODERATE; EOSINOPHILS % (MANUAL) 2 % (0-7); LYMPHOCYTES % (MANUAL) 7 % (19-48); MONOCYTES % (MANUAL) 4 % (3.4-9.0); NEUTROPHILS % (MANUAL) 87 % (40-74); TEAR DROP CELLS FEW
[2019-12-13 07:44] LABS: PLATELET ESTIMATE ADEQUATE; PLATELET MORPHOLOGY COMMENT FEW LARGE; POLYCHROMASIA FEW; RBC MORPHOLOGY COMMENT ABNORMAL; STOMATOCYTES SLIGHT
[2019-12-13] MEDS ORDERED: POTASSIUM CHLORIDE 20 MEQ TAB CR PO SCH ×2 (08:40→12:00)
[2019-12-13] MEDS: METOPROLOL TARTRATE 25 MG TAB PO SCH ×2 (09:12→16:38)
[2019-12-13] MEDS: LEVOFLOXACIN 500MG/D5W 100ML 100 ML IV SCH (09:12)
[2019-12-13] MEDS: AMLODIPINE BESYLATE 10 MG TAB PO SCH (09:13)
[2019-12-13] MEDS: DEXTROSE 5% 1,000 ML IV SCH ×2 (09:13→23:17)
[2019-12-13] MEDS: ENOXAPARIN 30 MG/0.3 ML SYR SC SCH ×2 (09:13→20:45)
[2019-12-13] MEDS: COLLAGENASE 5 GM TUBE TP SCH (15:11)
--- NOTE | 2019-12-13 16:25 | NUR ---
Spoke with pt's son Jax Tobin [phone]. States pt lives with him and he wants her to return home with home health after discharge. States pt was last with [facility]. Would like for her to go back with them, if possible. CM provided home health's contact information to Mr. Tobin and informed him that CM will send referral once we receive an order from MD. Cm also discussed IMM letter. Mr. Tobin verbalized understanding. Signed choice letter and IMM placed in chart. Copy to pt's bedside. TERRY received HH order from Dr. Varela. Order entered into system. Referral faxed to [facility] at [phone] / P [phone]
--- NOTE | 2019-12-13 19:00 | NUR ---
Receive the patient in report.lyeing in the bed.bed alarm on.
[2019-12-13] MEDS: PANTOPRAZOLE 40 MG 10ML VIAL IV SCH (20:45)
[2019-12-14] VITALS (8 sets, daily range): BP systolic 116–135; BP diastolic 59–84
[2019-12-14] MEDS ORDERED: BISACODYL 10 MG SUPP PR ONE (00:15)
--- NOTE | 2019-12-14 00:55 | NUR ---
Dr.M MARTÍNEZ IS IN THE UNIT .ORDERED TO ADMINISTER DULCOLAX SUPPOSITORY 20 MG VA.IMPLEMENTED.REPOSITIONED.NO RESP DISTRESS.BED LOCKED AND IN LOWEST POSITION.PHONE AND CALL LIGHT WITHIN REACH.INSTRUCTED TO CALL FOR ASSISTANCE NEEDED.
[2019-12-14] MEDS: HYDROCODONE/APAP 7.5MG-325MG 1 EA TAB PO PRN (03:10)
--- NOTE | 2019-12-14 05:10 | Progress Note ---
DATE: SUBJECTIVE: The patient did well overnight. No new issues. OBJECTIVE: VITAL SIGNS: Temperature 97.6, pulse 67, and blood pressure 123/68. GENERAL: She is no apparent distress, lying in bed. NECK: Supple. CARDIOVASCULAR: Regular rate and rhythm. LUNGS: Clear to auscultation bilaterally. ABDOMEN: Good bowel sounds. Soft and nontender. EXTREMITIES: No clubbing or cyanosis. NEUROLOGIC: She moves all extremities x4. ASSESSMENT AND PLAN: 1. Hypokalemia. Replace and recheck. 2. Anemia, stable. Continue to monitor. 3. Deep vein thrombosis in arm. Continue with Lovenox. 4. Status post colon cancer surgery. Continue with postoperative care. 5. Hypertension. Continue with current care and monitoring. Please see hospital chart for full details. MD JENNYFER Will/MIRIAM /[id number]
--- NOTE | 2019-12-14 07:06 | NUR ---
Bed side shift report given to oncoming RN.stable condition.
[2019-12-14 07:13] LABS: ALANINE AMINOTRANSFERASE 12 IU/L (0-55); ALBUMIN 1.5 g/dL (3.5-5.0); ALBUMIN/GLOBULIN RATIO 0.5 (0.8-2.0); ALKALINE PHOSPHATASE 73 IU/L (40-150); ANION GAP 6.4 mmol/L (8-16); BLOOD UREA NITROGEN 8 mg/dL (7-26); BUN/CREATININE RATIO 14 (6-25); CALCIUM 7.6 mg/dL (8.4-10.2); CARBON DIOXIDE 19 mmol/L (22-29); CHLORIDE 123 mmol/L (98-107); CREATININE, SERUM 0.59 mg/dL (0.57-1.11); EST GLOMERULAR FILTRATION RATE > 60 ML/MIN (60-); GLUCOSE 83 mg/dL (74-118); POTASSIUM 3.4 mmol/L (3.5-5.1); SODIUM 145 mmol/L (136-145)
[2019-12-14] MEDS: AMLODIPINE BESYLATE 10 MG TAB PO SCH (09:00)
[2019-12-14] MEDS: METOPROLOL TARTRATE 25 MG TAB PO SCH ×2 (09:00→17:23)
[2019-12-14] MEDS: LEVOFLOXACIN 500MG/D5W 100ML 100 ML IV SCH (09:09)
[2019-12-14] MEDS: COLLAGENASE 5 GM TUBE TP SCH (09:10)
[2019-12-14] MEDS: ENOXAPARIN 30 MG/0.3 ML SYR SC SCH ×2 (09:10→20:23)
[2019-12-14] MEDS ORDERED: POTASSIUM CHLORIDE 20 MEQ TAB CR PO ONE (11:25)
--- NOTE | 2019-12-14 16:00 | NUR ---
Per Dr. Varela, possible discharge tomorrow. Updated Alberta with [facility] on anticipated discharge. Stated they should be able to see pt the day after she discharges. CM also called pt's son Jax Tobin and updated him on discharge plan.
--- NOTE | 2019-12-14 18:05 | NUR ---
BERLIN cleaning @ [id number] , patient urinated this time, not in any distress, Dr Igor Holder had rounds
--- NOTE | 2019-12-14 19:05 | NUR ---
Received the patient in report.lyeing in the bed.stable condition.
[2019-12-14] MEDS: PANTOPRAZOLE 40 MG 10ML VIAL IV SCH (20:23)
[2019-12-15] VITALS: BP 184/75
--- NOTE | 2019-12-15 00:20 | NUR ---
Repositioned.diaper changed.allevyn foam dressing changed.encouraged to take ensure. was in the unit.stable condition.
[2019-12-15] MEDS: DEXTROSE 5% 1,000 ML IV SCH (00:30)
[2019-12-15 04:00] VITALS: BP 115/76
--- NOTE | 2019-12-15 06:00 | NUR ---
IV INFILTERATED.REMOVED AND APPLIED PRESSURE DRESSING.CATHETER TIP WAS INTACT.TRIED TO START NEW IV.NOT SUCCESS.NOTIFIED TO . STATED THAT POSSIBLE DISCHARGE.LET THE PATIENT BE WITHOUT IV ACCESS.
[2019-12-15 06:18] LABS: ANION GAP 6.7 mmol/L (8-16); BLOOD UREA NITROGEN 9 mg/dL (7-26); BUN/CREATININE RATIO 14 (6-25); CALCIUM 7.7 mg/dL (8.4-10.2); CARBON DIOXIDE 19 mmol/L (22-29); CHLORIDE 121 mmol/L (98-107); CREATININE, SERUM 0.63 mg/dL (0.57-1.11); EST GLOMERULAR FILTRATION RATE > 60 ML/MIN (60-); GLUCOSE 72 mg/dL (74-118); POTASSIUM 3.7 mmol/L (3.5-5.1); SODIUM 143 mmol/L (136-145)
[2019-12-15 06:47] LABS: BASOPHILS % 0.2 % (0.0-1.0); EOSINOPHILS # (AUTO) 0.4 (0.0-0.4); EOSINOPHILS % 2.6 % (0.0-6.0); HEMATOCRIT 29.3 % (34.2-44.1); HEMOGLOBIN 9.8 g/dL (12.0-16.0); LYMPHOCYTES # (AUTO) 1.1 (1.0-3.2); LYMPHOCYTES % 6.6 % (18.0-39.1); MEAN CORPUSCULAR HEMOGLOBIN 28.5 pg (28-32); MEAN CORPUSCULAR HGB CONC 33.4 g/dL (31-35); MEAN CORPUSCULAR VOLUME 85.2 fL (81-99); MONOCYTES # (AUTO) 0.8 (0.2-0.8); NEUTROPHILS # (AUTO) 13.6 (2.1-6.9); NEUTROPHILS % 84.6 % (38.7-80.0); PLATELET COUNT 220 x10e3/uL (140-360); RED BLOOD COUNT 3.44 x10e6/uL (3.6-5.1); RED CELL DISTRIBUTION WIDTH 16.4 % (11.7-14.4)
--- NOTE | 2019-12-15 07:00 | NUR ---
Bed side shift report given to oncoming rn.stable condition.
[2019-12-15 07:02] LABS: ALBUMIN 1.6 g/dL (3.5-5.0); BILIRUBIN,DIRECT 0.3 mg/dL (0.0-0.5)
--- NOTE | 2019-12-15 07:10 | NUR ---
RCD PT AT BED PT IS ALERT PT RESTING ON BED NO SIGNS OF ANY DISTRESS NOTED NO IV ACCESS DR MUKHERJEE AWARE THAT ,BED LOW AND LOCKED CALL LIGHT IN REACH
[2019-12-15 08:00] VITALS: BP 119/76
[2019-12-15 08:39] VITALS: BP 119/76
[2019-12-15] MEDS: LEVOFLOXACIN 500MG/D5W 100ML 100 ML IV SCH (09:00)
[2019-12-15] MEDS: METOPROLOL TARTRATE 25 MG TAB PO SCH (09:00)
[2019-12-15] MEDS: AMLODIPINE BESYLATE 10 MG TAB PO SCH (09:00)
[2019-12-15] MEDS: ENOXAPARIN 30 MG/0.3 ML SYR SC SCH (09:00)
[2019-12-15 09:02] LABS: EOSINOPHILS % (MANUAL) 3 % (0-7); LYMPHOCYTES % (MANUAL) 3 % (19-48); MONOCYTES % (MANUAL) 5 % (3.4-9.0); MYELOCYTES % (MANUAL) 1 % (0-0); NEUTROPHILS % (MANUAL) 88 % (40-74)
[2019-12-15 09:03] LABS: ANISOCYTOSIS SLIGHT; SCHISTOCYTES RARE; TEAR DROP CELLS FEW
[2019-12-15 09:04] LABS: BURR CELLS SLIGHT; HYPOCHROMASIA N; OVALOCYTES FEW; PLATELET ESTIMATE ADEQUATE; RBC MORPHOLOGY COMMENT ABNORMAL
[2019-12-15 09:05] LABS: PLATELET MORPHOLOGY COMMENT NORMAL
--- NOTE | 2019-12-15 10:50 | NUR ---
AC TO LATHMAKER PT\OT READY AT HOME PAGED AND NOTIFIED DR MUKHERJEE GO THE DISCHARGE ORDER
--- NOTE | 2019-12-15 11:18 | NUR ---
Spoke to RAMEZ Haq. States she received dc order from Dr. Varela and that pt's son will be here at noon to pick her up. TERRY called [facility] and spoke with Alberta. Informed her of discharge for today. She states they will arrange with nursing and try to have pt seen tomorrow; if not, pt will be seen the following day.
[2019-12-15 11:56] VITALS: BP 111/61
--- NOTE | 2019-12-15 12:45 | NUR ---
Patient discharged home. Patient off the unit @ 1208 via wheelchair accompanied by 2 RNs to the [facility]. Patient in stable condition, no s/s of distress noted. No pain noted. IV access removed with tip intact. All personal belongings taken with patient. Discharge teaching and instructions given to family. Verbalized understanding by family. Addendum: 12/15/19 at 1252 by Tabatha Rome RN No IV access at time of discharge.
[2019-12-15] MEDS ORDERED: WARFARIN SOD 3 MG TAB PO SCH (17:00)
--- NOTE | 2019-12-25 09:15 | Discharge Summary ---
DISCHARGE DIAGNOSES: 1. Gastrointestinal bleed. 2. Anemia. 3. Colon cancer status post resection. 4. Deep venous thrombosis of the upper arm. 5. Coumadin toxicity. HISTORY OF PRESENT ILLNESS AND HOSPITAL COURSE: See hospital chart for full details for this complex case. The patient is an elderly lady with history of CVA, who presented with elevated INR, who had a GI bleed. Once INR is corrected and her GI bleed was stable, she had a colonoscopy performed that showed evidence of a mass that was surgically resected by Dr. Holder without any complications. Postoperatively, she did have some episodes of DVT in the upper arm due to the midline, since her source of GI bleed was removed. She was restarted back on her Coumadin and the family wanted the patient to be discharged home and not go to a assisted facility or rehab place, so she was discharged home with followup in 1 week with her primary care physician, Dr. Joyce for her INR levels. Please see hospital chart for full details. MD JENNYFER Will/MIRIAM /[id number]
== END 2019-12-15 12:08 | disposition home health service (06) | DRG 329 ==
LOC: ER 12:45 → MED/SURG3 19:45 → OBSVTOIN 11-28 09:35 → IMCU 12-06 13:53 → MED/SURG2 12-12 11:36
PROVIDERS: ADMIT Internal Medicine; ATTEND Internal Medicine
PROC: 05HY33Z Insertion of Infusion Device into Upper Vein, Percutaneous Approach (ICD-10-PCS; 2019-11-27)
PROC: 30243N1 Transfusion of Nonautologous Red Blood Cells into Central Vein, Percutaneous Approach (ICD-10-PCS; 2019-11-27)
PROC: 0DBN8ZX Excision of Sigmoid Colon, Via Natural or Artificial Opening Endoscopic, Diagnostic (ICD-10-PCS; 2019-12-01)
PROC: 0W3P8ZZ Control Bleeding in Gastrointestinal Tract, Via Natural or Artificial Opening Endoscopic (ICD-10-PCS; 2019-12-01)
PROC: 0DB78ZX Excision of Stomach, Pylorus, Via Natural or Artificial Opening Endoscopic, Diagnostic (ICD-10-PCS; 2019-12-01 11:58)
PROC: 0DBK8ZX Excision of Ascending Colon, Via Natural or Artificial Opening Endoscopic, Diagnostic (ICD-10-PCS; 2019-12-01 11:58)
PROC: 0DBL8ZX Excision of Transverse Colon, Via Natural or Artificial Opening Endoscopic, Diagnostic (ICD-10-PCS; 2019-12-01 11:58)
PROC: 0DBM0ZZ Excision of Descending Colon, Open Approach (ICD-10-PCS; principal; 2019-12-06 07:30)
DX: C18.9 Malignant neoplasm of colon, unspecified (principal); G93.41 Metabolic encephalopathy; K57.33 Diverticulitis of large intestine without perforation or abscess with bleeding; I69.351 Hemiplegia and hemiparesis following cerebral infarction affecting right dominant side; D68.9 Coagulation defect, unspecified; E87.6 Hypokalemia; D64.9 Anemia, unspecified; K21.9 Gastro-esophageal reflux disease without esophagitis; I10 Essential (primary) hypertension; L89.150 Pressure ulcer of sacral region, unstageable; F03.90 Unspecified dementia, unspecified severity, without behavioral disturbance, psychotic disturbance, mood disturbance, and anxiety; Z86.718 Personal history of other venous thrombosis and embolism; Z79.01 Long term (current) use of anticoagulants; T45.515A Adverse effect of anticoagulants, initial encounter; Z99.3 Dependence on wheelchair
CPT/HCPCS: 36415; 43239; 45378; 45380; 45381; 45385; 74018; 74176; 80048; 80053; 80076; 82550; 82553; 82607; 82728; 82746; 83540; 83690; 83735; 84466; 84484; 85025; 85045; 85610; 86850; 86900; 86920; 88172; 88173; 88305; 88307; 88309; 88312; 88331; 93005; 93971; 96361; 97139; 99251; 99284; G0378; J0461; J1170; J1650; J1940; J1956; J2001; J2250; J2370; J2405; J2710; J3010; J3430; J3480; J7030; J7050; J7070; P9016

== ENCOUNTER 2019-12-21 15:26 | Inpatient (IN) | payer MEDICARE, OTHER ==
[~2019-12-21] VITALS: Ht 177.8 cm; Wt 61.5 kg
[2019-12-21] VITALS (7 sets, daily range): BP systolic 85–112; BP diastolic 46–57
[2019-12-21 16:34] LABS: BASOPHILS % 0.2 % (0.0-1.0); EOSINOPHILS # (AUTO) 0.2 (0.0-0.4); EOSINOPHILS % 1.2 % (0.0-6.0); HEMATOCRIT 29.4 % (34.2-44.1); HEMOGLOBIN 9.7 g/dL (12.0-16.0); LYMPHOCYTES # (AUTO) 1.1 (1.0-3.2); LYMPHOCYTES % 7.6 % (18.0-39.1); MEAN CORPUSCULAR HEMOGLOBIN 27.7 pg (28-32); MONOCYTES # (AUTO) 1.1 (0.2-0.8); MONOCYTES % 7.7 % (4.4-11.3); NEUTROPHILS # (AUTO) 11.7 (2.1-6.9); NEUTROPHILS % 82.5 % (38.7-80.0); PLATELET COUNT 511 x10e3/uL (140-360); RED CELL DISTRIBUTION WIDTH 16.7 % (11.7-14.4)
[2019-12-21 16:56] LABS: ALANINE AMINOTRANSFERASE 10 IU/L (0-55); ALBUMIN 1.6 g/dL (3.5-5.0); ALBUMIN/GLOBULIN RATIO 0.4 (0.8-2.0); ALKALINE PHOSPHATASE 119 IU/L (40-150); ANION GAP 11.2 mmol/L (8-16); BLOOD UREA NITROGEN 9 mg/dL (7-26); BUN/CREATININE RATIO 15 (6-25); CALCIUM 7.1 mg/dL (8.4-10.2); CARBON DIOXIDE 23 mmol/L (22-29); CHLORIDE 115 mmol/L (98-107); CREATINE KINASE 26 IU/L (29-168); CREATININE, SERUM 0.61 mg/dL (0.57-1.11); EST GLOMERULAR FILTRATION RATE > 60 ML/MIN (60-); GLUCOSE 102 mg/dL (74-118); POTASSIUM 3.2 mmol/L (3.5-5.1); SODIUM 146 mmol/L (136-145)
--- NOTE | 2019-12-21 19:50 | NUR ---
Notify Leah VILLALOBOS regarding potassium 3.2 with no coverage, recheck in am.
[2019-12-21] MEDS: NIFEDIPINE 10 MG CAP PO SCH ×2 (21:00→21:27)
[2019-12-21] MEDS ORDERED: HYDRALAZINE HCL 20 MG/ML VIAL IV PRN (21:30)
[2019-12-21] MEDS ORDERED: ONDANSETRON HCL INJ 2MG/ML 2ML 2 MG/ML VIAL IV PRN (21:30)
[2019-12-21] MEDS ORDERED: ACETAMINOPHEN 325 MG TAB PO PRN (21:30)
--- NOTE | 2019-12-21 21:35 | NUR ---
Noted patient having difficulty swallowing pill, patient attempted to to bite pill. Instructed patient to spit pill out. Will notify MD regarding difficulty swallowing.
--- NOTE | 2019-12-21 21:45 | NUR ---
Spoke with daughter Lincoln Marin regarding patient history, vaccine history, home medications, difficulty swallowing. Daughter stated that patient has difficulty swallowing, they crush meds and put in apple sauce.
--- NOTE | 2019-12-21 21:50 | NUR ---
Pharmacy called to state that medication nifedipine IR 10mg was ordered from ER. Medication can cause dropping in BP and to follow up with MD if want patient to be on medication.
--- NOTE | 2019-12-21 22:00 | NUR ---
Spoke with Leah VILLALOBOS regarding patient having difficulty swallowing medication and attempted to bite medication and instructed patent to spit medication out and ER order nifedipine IR 10 mg po. New order to d/c nifedipine and hold metoprolol 25 mg po BID id SBP less 110 or HR less 60.
--- NOTE | 2019-12-21 22:10 | NUR ---
BP 85/47, 90, bolus NS 500 cc over 5 hrs, recheck BP in 2 hours and call Leah with results. Will continue to monitor closely.
[2019-12-21] MEDS: SODIUM CHLORIDE 0.9% 1000ML 500 ML IV SCH (22:20)
--- NOTE | 2019-12-21 22:20 | NUR ---
NS bolus started per order. Will continue to monitor closely.
[2019-12-21] MEDS ORDERED: SODIUM CHLORIDE 0.9% 500ML 500 ML ONE (22:22)
[2019-12-21] MEDS: VANCOMYCIN 1GM/NS 250 ML 250 ML IV SCH (22:30)
[2019-12-22] VITALS (11 sets, daily range): BP systolic 91–146; BP diastolic 46–76
--- NOTE | 2019-12-22 00:22 | NUR ---
Notified Williams VILLALOBOS regarding BP per order to call 2 hrs after initiation of bolus: BP 96/52, 98, patient resting, resp even and unlabored, easily arouse. No issues or concerns noted. Continue bolus at 100cc hr until complete ( 500cc). Will continue to monitor closely.
[2019-12-22] MEDS: CEFTRIAXONE SOD 1 GM/NS 50 ML 50 ML IV SCH ×2 (00:28→23:30)
[2019-12-22] MEDS: SODIUM CHLORIDE 0.9% 1000ML 500 ML IV SCH (03:15)
[2019-12-22 06:14] LABS: BASOPHILS % 0.3 % (0.0-1.0); EOSINOPHILS # (AUTO) 0.1 (0.0-0.4); EOSINOPHILS % 0.9 % (0.0-6.0); HEMATOCRIT 24.3 % (34.2-44.1); HEMOGLOBIN 8.1 g/dL (12.0-16.0); LYMPHOCYTES # (AUTO) 1.1 (1.0-3.2); MEAN CORPUSCULAR HEMOGLOBIN 27.8 pg (28-32); MEAN CORPUSCULAR HGB CONC 33.3 g/dL (31-35); MEAN CORPUSCULAR VOLUME 83.5 fL (81-99); MONOCYTES # (AUTO) 1.3 (0.2-0.8); MONOCYTES % 9.3 % (4.4-11.3); NEUTROPHILS # (AUTO) 11.2 (2.1-6.9); NEUTROPHILS % 80.9 % (38.7-80.0); PLATELET COUNT 424 x10e3/uL (140-360); RED BLOOD COUNT 2.91 x10e6/uL (3.6-5.1); RED CELL DISTRIBUTION WIDTH 16.5 % (11.7-14.4)
[2019-12-22 06:31] LABS: INR 3.93
[2019-12-22 06:45] LABS: ALANINE AMINOTRANSFERASE 9 IU/L (0-55); ALBUMIN 1.4 g/dL (3.5-5.0); ALBUMIN/GLOBULIN RATIO 0.4 (0.8-2.0); ALKALINE PHOSPHATASE 102 IU/L (40-150); ANION GAP 6.7 mmol/L (8-16); BLOOD UREA NITROGEN 9 mg/dL (7-26); BUN/CREATININE RATIO 17 (6-25); CARBON DIOXIDE 23 mmol/L (22-29); CHLORIDE 115 mmol/L (98-107); CREATININE, SERUM 0.54 mg/dL (0.57-1.11); EST GLOMERULAR FILTRATION RATE > 60 ML/MIN (60-); GLUCOSE 68 mg/dL (74-118); SODIUM 142 mmol/L (136-145)
[2019-12-22 06:50] LABS: CALCIUM 6.1 mg/dL (8.4-10.2); POTASSIUM 2.7 mmol/L (3.5-5.1)
[2019-12-22 06:56] LABS: PROTHROMBIN TIME 41.6 seconds (11.9-14.5)
--- NOTE | 2019-12-22 06:57 | NUR ---
Notified Dr Varela regarding lab alerts: potassium 2.7, calcium 6.1, PT 41.6, INR 3.93. New orders: Hold coumadin. Give K Dur 40mEq po now and then again in 4hrs. Give calcium gluconate 1 gm IV now and then again in 4 hrs. Updated on coming nurse.
[2019-12-22 07:05] LABS: THYROID STIMULATING HORMONE 0.467 uIU/mL (0.350-4.940)
--- NOTE | 2019-12-22 07:10 | NUR ---
Bedside report and rounds completed with on coming nurse. Patient in bed with call light within reach. No issues or concerns noted.
[2019-12-22] MEDS ORDERED: CALCIUM GLUCONATE 10% INJ 4.65 MEQ in SODIUM CHLORIDE 0.9% 50ML 50 ML IV ONE ×2 (08:15→12:00)
--- NOTE | 2019-12-22 08:15 | NUR ---
The pt. was received from the off-going nurse and has abnormal lab results. A second call was placed to Dr. Velasco for orders and were received and carried out.
[2019-12-22] MEDS ORDERED: POTASSIUM CHLORIDE 10MEQ EA PO ONE ×2 (08:20→12:00)
[2019-12-22 09:25] LABS: ANISOCYTOSIS SLIGHT; EOSINOPHILS % (MANUAL) 1 % (0-7); LYMPHOCYTES % (MANUAL) 5 % (19-48); MONOCYTES % (MANUAL) 6 % (3.4-9.0); NEUTROPHILS % (MANUAL) 88 % (40-74); NUCLEATED RED BLOOD CELLS 1
[2019-12-22 09:26] LABS: PLATELET CLUMPS FEW; PLATELET ESTIMATE SLIGHTLY INCREASED; PLATELET MORPHOLOGY COMMENT NORMAL; POIKILOCYTOSIS SLIGHT; RBC MORPHOLOGY COMMENT NORMAL
--- NOTE | 2019-12-22 09:30 | NUR ---
The pt. has no iv access and attempt made times [address] was contacted for picc line placement. The building and grounds supervisor placed 20 gauge in the left ac.
--- NOTE | 2019-12-22 09:40 | NUR ---
Pt. expressed no spiritual or emotional concerns at this time. Building Construction Supervisor provided hospitality and information on how to reach nuclear physician, if needed. Pt expressed appreciation for visit. No need to follow at this time. [facility] O: [phone] Addendum: 12/22/19 at 1049 by Edmond Castro CHAP PREVIOUS ENTRY INCORRECT-PLEASE NOTE CORRECTION: Pt sleeping soundly and no family present. Building Construction Supervisor left a card describing availability of nuclear physician and instructions on how to contact a nuclear physician. [facility] O: [phone]
[2019-12-22] MEDS ORDERED: SODIUM CHLORIDE 0.9% 250ML 250 ML ONE (10:57)
[2019-12-22] MEDS ORDERED: ONDANSETRON HCL 4 MG ORAL DISINTEGRATING TAB PO PRN (11:00)
[2019-12-22] MEDS: METOPROLOL TARTRATE 25 MG TAB PO SCH ×2 (11:47→17:29)
[2019-12-22] MEDS: POTASSIUM CHLORIDE 10MEQ EA PO SCH (11:47)
[2019-12-22] MEDS: FUROSEMIDE 20 MG TAB PO SCH (11:47)
[2019-12-22] MEDS: FAMOTIDINE 20 MG TAB PO SCH (11:50)
--- NOTE | 2019-12-22 13:38 | NUR ---
WOUND CARE CONSULT FOR 84 YO FEMALE HX OF LYMPH EDEMA,PAD JARED 14 ON MODERATE PUP STATUS AND INTERVENTIONS AND ALTERNATING PRESSURE MATTRESS LABS: WBC-13.81 HGB_8.1 GLUCOSE-68 SKIN ASSESSMENT COMPLETE PATIENT PRESENTS WITH BILATERAL PITTING EDEMA OF LE LEFT FOOT DARKENED TOES AND HEEL DTI 1CM X1CM DARK PURPLE RIGHT BUTTOCKS STAGE 2 ULCERATION 1CM X 1CM X.1CM SACRAL DTI 9CM X10CM DARK PURPLE DARK GREYISH MIDDLE MEASURES 9CM X10CM RECOMMENDATIONS: NURSING TO CONTINUE TO MAINTAIN MODERATE PUP STATUS AND INTERVENTIONS AND ALTERNATING PRESSURE MATTRESS NURSING TO CONTINUE TO ASSIST PATIENT OUT OF BED FOR MEALS AND MUCH TOLERATED NURSING TO CONTINUE TO ASSIST PATIENT NEEDED WITH MEALS AND NUTRITIONAL SUPPLEMENTS TO ENSURE PROPER REQUIREMENTS FOR HEALING NURSING TO CONTINUE TO OFFLOAD FEET AND HEELS NEEDED WITH PILLOW SUSPENSION WHEN IN BED NURSING TO CLEAN LEFT FOOT DARKENED TOES AND HEEL DTI WITH NORMAL SALINE DAILY AND APPLY VENELEX OINTMENT AND LEAVE OPEN TO AIR NURSING TO CLEAN RIGHT BUTTOCKS STAGE 2 ULCERATION AND SACRAL DTI WITH NORMAL SALINE DAILY AND APPLY VENELEX OINTMENT AND COVER WITH ALLEVYN FOAM DRESSING Addendum: 12/22/19 at 1349 by Trace Coyne RN Amended: Links added.
[2019-12-22] MEDS: VANCOMYCIN 1GM/NS 250 ML 250 ML IV SCH ×2 (13:50→21:00)
--- NOTE | 2019-12-22 14:00 | NUR ---
Dr. Rod george and new orders received The pt. is out of the room for Ct of the brain. Addendum: 12/22/19 at 1524 by Ailyn Bella RN Note entered in the wrong chart.
[2019-12-22] MEDS ORDERED: WARFARIN SOD 3 MG TAB PO SCH (17:00)
[2019-12-22] MEDS: BALSAM PERU/CASTOR OIL 60 GM OINT...G. TP SCH (17:26)
--- NOTE | 2019-12-22 18:41 | Consultation ---
DATE OF CONSULTATION: 12/22/2019 Cardiology note HISTORY OF PRESENT ILLNESS: This is an 84-year-old woman with a history of cerebrovascular accident with aphasia, coronary artery disease status post coronary artery bypass graft surgery, diastolic heart failure, who evidently presented with a lower extremity wound and multiple laboratory abnormalities and hypotension. We were consulted for possible peripheral vascular disease. The patient is aphasic with possible dementia, cannot provide me the exact details of her presenting history or past medical problems. Arterial Doppler was done that showed severe peripheral arterial disease. REVIEW OF SYSTEMS: Unable to be obtained. PAST MEDICAL HISTORY: As stated above. PAST SURGICAL HISTORY: Coronary artery bypass graft surgery SOCIAL HISTORY: No illicit drug, alcohol, or tobacco use. ALLERGIES: IODINE. MEDICATIONS: See medication reconciliation form. PHYSICAL EXAMINATION: VITAL SIGNS: Temperature is 97.2, heart rate 78, respirations are 16, blood pressure is 130/76, oxygen saturation 97% on room air. GENERAL: Chronically ill-appearing elderly woman, lying comfortably in bed. HEAD: Normocephalic, atraumatic. EYES: Extraocular muscles are intact. Conjunctivae are clear. NECK: No jugular venous distention. CARDIOVASCULAR: Regular rate and rhythm. Systolic murmur at the right sternal border. LUNGS: Clear to auscultation bilaterally. ABDOMEN: Soft, obese, nontender. EXTREMITIES: Left leg has 2+ pitting edema. Wounds on the digits. Diminished pulses. SKIN: Warm and dry. LABORATORY DATA: Reviewed. White blood cell count 13, hemoglobin is 8. Potassium is 2.7, creatinine is 0.54, calcium is 6. Troponins are negative. Magnesium is 1.5. IMPRESSION: 1. Peripheral arterial disease with wound. 2. History of deep venous thrombosis on anticoagulation. 3. Hyperlipidemia. 4. Coronary artery disease status post coronary artery bypass graft surgery. 5. Hypertension. 6. Hyperlipidemia. 7. 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 RECOMMENDATIONS: The patient may need peripheral arterial disease intervention. However, given her debilitated status and aphasia with possible dementia. The patient likely is a poor candidate for invasive procedures. Continue local wound care and antibiotics. We will need to discuss with primary team and family members about goals of care. Resume all home medications and correct electrolyte values. DO LULU Sanchez/BERTAL /[id number]
--- NOTE | 2019-12-22 20:00 | NUR ---
Received change of shift report from AM nurse. Walking rounds completed.
--- NOTE | 2019-12-22 20:02 | NUR ---
Nutrition Intervention Note RD Recommendation(s) for Physician: - Continue Cardiac, GI Soft diet. Recommend adding chopped meats 2/2 poor dentition. - Recommend Ensure Enlive TID for adequacy. - Recommend MVI with minerals once daily, Vitamin C, and Zinc Sulfate for wound healing - Recommend Todd 1 packet BID to promote wound healing Plan of Care: RD following, monitoring for tolerance and adequacy, ONS, vitamin, and mineral rec's Nutrition reason for involvement: nutrition risk trigger RD Assessment 12/21: 84 YOF admitted for lymphedema and PAD known from prior admission. 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 Poor intake during and prior to admit noted per documentation. Pt with dementia and aphasia, unable to obtain additional hx at this time. Per prior admit pt with poor dentition, family would chop foods at home, and no reported difficulties swallowing. Pt with multiple wounds on admit. Rec's provided to promote wound healing. Chart reviewed. Will continue to monitor. Principal Problems/Diagnoses: lymphedema, PAD PMH: Hypertension, dementia, reflux disease, hyperlipidemia, and DVT GI: abdomen non-tender,LBM 12/21 x 2 Skin: sacral stage III PU, R buttock stage II, L heel no staging- black Labs: 12/21: Na 142, K 2.7, BUN 9, Cr 0.54, Gluc 68, Ca 6.1, Mg 1.5 Meds: abx, lasix, pepcid, kdur, zofran Ht: 65in per prior admit, currently listed as 70 in Wt: 161 lb (12/21) 141 lbs (12/02) 142lb (11/25) BMI: 23.1 kg/m2 IBW: 125lb +/- 10% Malnutrition Evaluation (12/22/19) The patient does not meet criteria for a specified degree of malnutrition at this time. Will re-evaluate at follow-up as appropriate. GRAEME Nutrition Prescription (Diet Order): Cardiac, GI soft Estimated Nutritional Needs: Calories: 1410 1602 kcal (22-25kcal/kg/d) Weight used : CBW- prior admit wt used 2/2 +2 edema Protein : 77 96g (1.2-1.5g/kg/d) Weight used: CBW Diet Adequacy: Not meeting calorie needs, Not meeting protein needs Tolerance: Tolerating po Diet Education Needs Assessment: Diet education not indicated. Nutrition Care Level: moderate Nutrition Diagnosis: Increased nutrient needs (protein, vitamins, minerals) related to skin integrity as evidenced by multiple wounds on admit Goal: Patient will meet 75-100% of estimated needs by follow up Progress: N/A Interventions: Modified diet, Commercial beverage, vitamin and mineral supplementation, recommend modifications Monitoring/Evaluation: Total energy intake, Total protein intake, Modified diet, Liquid supplement, Weight change Signed: Dali Corley RD, LD, CNSC
[2019-12-22] MEDS ORDERED: PRAVASTATIN SODIUM 80 MG PO SCH (21:00)
[2019-12-22] MEDS: PRAVASTATIN 20 MG TAB PO SCH (21:00)
--- NOTE | 2019-12-22 21:00 | NUR ---
Midline was placed to left upper arm. Dressing intact, no noted bleeding and patent. Continue monitor.
[2019-12-23] VITALS (8 sets, daily range): BP systolic 112–137; BP diastolic 52–83
[2019-12-23 06:12] LABS: BASOPHILS % 0.3 % (0.0-1.0); EOSINOPHILS # (AUTO) 0.2 (0.0-0.4); EOSINOPHILS % 2.1 % (0.0-6.0); HEMATOCRIT 25.4 % (34.2-44.1); HEMOGLOBIN 8.4 g/dL (12.0-16.0); LYMPHOCYTES # (AUTO) 1.1 (1.0-3.2); LYMPHOCYTES % 11.5 % (18.0-39.1); MEAN CORPUSCULAR HEMOGLOBIN 27.8 pg (28-32); MEAN CORPUSCULAR HGB CONC 33.1 g/dL (31-35); MEAN CORPUSCULAR VOLUME 84.1 fL (81-99); MONOCYTES # (AUTO) 0.9 (0.2-0.8); MONOCYTES % 9.4 % (4.4-11.3); NEUTROPHILS # (AUTO) 7.5 (2.1-6.9); PLATELET COUNT 518 x10e3/uL (140-360); RED BLOOD COUNT 3.02 x10e6/uL (3.6-5.1); RED CELL DISTRIBUTION WIDTH 16.9 % (11.7-14.4)
[2019-12-23 06:22] LABS: INR 3.85
[2019-12-23 06:23] LABS: PROTHROMBIN TIME 40.9 seconds (11.9-14.5)
--- NOTE | 2019-12-23 06:27 | NUR ---
Changed dressing to sacral wound. Patient received a bath and tolerated well.
[2019-12-23 06:28] LABS: ALANINE AMINOTRANSFERASE 10 IU/L (0-55); ALBUMIN 1.5 g/dL (3.5-5.0); ALBUMIN/GLOBULIN RATIO 0.4 (0.8-2.0); ALKALINE PHOSPHATASE 99 IU/L (40-150); ANION GAP 10.3 mmol/L (8-16); BLOOD UREA NITROGEN 9 mg/dL (7-26); BUN/CREATININE RATIO 16 (6-25); CALCIUM 7.4 mg/dL (8.4-10.2); CARBON DIOXIDE 21 mmol/L (22-29); CHLORIDE 116 mmol/L (98-107); CREATININE, SERUM 0.55 mg/dL (0.57-1.11); EST GLOMERULAR FILTRATION RATE > 60 ML/MIN (60-); MAGNESIUM 1.6 MG/DL (1.3-2.1); POTASSIUM 3.3 mmol/L (3.5-5.1); SODIUM 144 mmol/L (136-145)
[2019-12-23 06:32] LABS: GLUCOSE 54 mg/dL (74-118)
[2019-12-23] MEDS ORDERED: DEXTROSE 50% SYRINGE 50 ML IV ONE (06:47)
--- NOTE | 2019-12-23 06:56 | NUR ---
Patient blood glucose 54. Given 1/2 amp of d50 per Dr Varela.
[2019-12-23] MEDS: VANCOMYCIN 1GM/NS 250 ML 250 ML IV SCH ×2 (09:52→21:00)
[2019-12-23] MEDS: FUROSEMIDE 20 MG TAB PO SCH (09:54)
[2019-12-23] MEDS: POTASSIUM CHLORIDE 10MEQ EA PO SCH (09:54)
[2019-12-23] MEDS: METOPROLOL TARTRATE 25 MG TAB PO SCH ×2 (09:55→17:29)
[2019-12-23] MEDS: FAMOTIDINE 20 MG TAB PO SCH (09:55)
[2019-12-23] MEDS: BALSAM PERU/CASTOR OIL 60 GM OINT...G. TP SCH (09:55)
--- NOTE | 2019-12-23 10:00 | NUR ---
PHYSICAL THERAPY AT BEDSIDE. PT SITTING UP IN RECLINER. DOING WELL.
--- NOTE | 2019-12-23 12:00 | NUR ---
ASSISTED PT BACK TO BED. PT TOLERATED WELL.
--- NOTE | 2019-12-23 12:13 | Progress Note ---
DATE: 12/23/2019 Cardiology Progress Note SUBJECTIVE: The patient is awake, but does not respond to questions. OBJECTIVE: VITAL SIGNS: Temperature 98 degrees, pulse 97, respiratory rate 22, blood pressure 137/75, and oxygen saturation 95%. GENERAL: Chronically ill-appearing woman, frail, no acute distress. Awake, but does not interact. LUNGS: Clear to auscultation bilaterally. No wheezes or crackles. CARDIOVASCULAR: Normal rate, regular rhythm. Systolic murmur at the right sternal border. ABDOMEN: Soft and nontender. EXTREMITIES: No edema on the left. No edema on the right. CARDIAC MEDICATIONS: Metoprolol tartrate 25 mg p.o. b.i.d., Crestor 10 mg p.o. daily. LABORATORY DATA: WBC 9.81, hemoglobin 8.4, hematocrit 25.4, platelets 518. Sodium 144, potassium 3.3, chloride 116, CO2 21, BUN 9, creatinine 0.55. Telemetry was personally reviewed and interpreted, revealing normal sinus rhythm. IMPRESSION: 1. Peripheral arterial disease, suggested lower extremity arterial Doppler 2. Lower extremity wound. 3. Coronary artery disease status post coronary artery bypass graft. 4. Cerebrovascular accident with hemiplegia and aphasia. 5. History of deep venous thrombosis on anticoagulation. 6. Hypertension. 7. Hyperlipidemia. RECOMMENDATIONS: Given the patient's debility, the patient is a poor candidate for invasive procedure. Continue wound care and antibiotics. We will need to discuss goals of care with primary team and family. Continue current cardiac medications. Blood pressure is adequately controlled. We will continue to follow. Precious Holley MD ABS/MODL /[id number] RADHA
--- NOTE | 2019-12-23 14:47 | NUR ---
PT WAS RECENTLY DC'D W [facility] @ [phone]. CALL AND SPOKE W RAMEZ REID. STATES THEY ONLY RECEIVED ORDERS FOR WOUND CARE OF THE SACRAL DECUB. STATES THE PT WAS EVAL'D BY PT 12/21/2019 AND NOTED THE L LEG WAS SWOLLEN AND HER TOES WERE DK COLORED. ALSO PEDAL PULSES WERE NOT PALPABLE AND FOOT WAS COOL TO TOUCH. STATES THEY WERE NOT AWARE OF THE R ARM W CELLULITIS. CALL TO DR. MUKHERJEE FOR INPT ORDER. INPT ORDER GIVEN.
--- NOTE | 2019-12-23 17:51 | NUR ---
pt repositioned in bed for comfort. pt eats very little from each meal 10 bites.
--- NOTE | 2019-12-23 19:59 | NUR ---
Received change of shift report from AM nurse. Walking rounds completed.
[2019-12-23] MEDS: PRAVASTATIN 20 MG TAB PO SCH (21:00)
--- NOTE | 2019-12-23 21:00 | NUR ---
Midline leaking. Called to get replaced.
[2019-12-23] MEDS: CEFTRIAXONE SOD 1 GM/NS 50 ML 50 ML IV SCH (23:30)
--- NOTE | 2019-12-23 23:43 | NUR ---
Tech. on the floor to start new iv access.
--- NOTE | 2019-12-23 23:45 | NUR ---
Patient received a bath with dale care. Dressing placed on hip. Dressing to sacrum intact.
[2019-12-24] VITALS (8 sets, daily range): BP systolic 114–126; BP diastolic 49–84
--- NOTE | 2019-12-24 00:13 | NUR ---
Midline replaced to left arm by tech. dry, intact and patent. Patient tolerated well.
--- NOTE | 2019-12-24 03:50 | NUR ---
Patient HR elevated to 130 for a brief period then back down to 80. Patient in no pain or discomfort at that time. BP wnl. Continue monitor. Tele informed. Will inform
[2019-12-24 05:53] LABS: BASOPHILS % 0.3 % (0.0-1.0); EOSINOPHILS # (AUTO) 0.2 (0.0-0.4); HEMATOCRIT 23.7 % (34.2-44.1); HEMOGLOBIN 7.8 g/dL (12.0-16.0); LYMPHOCYTES % 11.9 % (18.0-39.1); MEAN CORPUSCULAR HEMOGLOBIN 28.4 pg (28-32); MEAN CORPUSCULAR HGB CONC 32.9 g/dL (31-35); MEAN CORPUSCULAR VOLUME 86.2 fL (81-99); MONOCYTES # (AUTO) 0.7 (0.2-0.8); MONOCYTES % 8.4 % (4.4-11.3); NEUTROPHILS # (AUTO) 6.7 (2.1-6.9); NEUTROPHILS % 76.9 % (38.7-80.0); PLATELET COUNT 471 x10e3/uL (140-360); RED BLOOD COUNT 2.75 x10e6/uL (3.6-5.1); RED CELL DISTRIBUTION WIDTH 17.2 % (11.7-14.4)
[2019-12-24 06:06] LABS: INR 4.64
[2019-12-24 06:08] LABS: PROTHROMBIN TIME 47.6 seconds (11.9-14.5)
[2019-12-24 06:14] LABS: ALANINE AMINOTRANSFERASE 11 IU/L (0-55); ALBUMIN 1.4 g/dL (3.5-5.0); ALBUMIN/GLOBULIN RATIO 0.4 (0.8-2.0); ALKALINE PHOSPHATASE 89 IU/L (40-150); ANION GAP 6.2 mmol/L (8-16); BLOOD UREA NITROGEN 9 mg/dL (7-26); BUN/CREATININE RATIO 13 (6-25); CALCIUM 7.3 mg/dL (8.4-10.2); CARBON DIOXIDE 25 mmol/L (22-29); CHLORIDE 118 mmol/L (98-107); CREATININE, SERUM 0.68 mg/dL (0.57-1.11); EST GLOMERULAR FILTRATION RATE > 60 ML/MIN (60-); GLUCOSE 83 mg/dL (74-118); MAGNESIUM 1.7 MG/DL (1.3-2.1); POTASSIUM 3.2 mmol/L (3.5-5.1); SODIUM 146 mmol/L (136-145)
--- NOTE | 2019-12-24 07:11 | Progress Note ---
DATE: 12/24/2019 SUBJECTIVE: The patient did well overnight. No new issues. OBJECTIVE: VITAL SIGNS: Temperature 98.2, pulse 78, blood pressure 119/56, sats 95%. GENERAL: No apparent distress, lying in bed. CARDIOVASCULAR: Regular rate and rhythm. LUNGS: Clear to auscultation bilaterally. ABDOMEN: Good bowel sounds. Soft, nontender. EXTREMITIES: Show no clubbing or cyanosis. Left foot still shows the inflamed changes. No change from previous day. NEUROLOGIC: Moves all extremities x4. ASSESSMENT AND PLAN: 1. Cellulitis of left lower extremity. Continue with current antibiotics and wound care. 2. Peripheral arterial disease. Continue with current care for Cardiology, but due to the patient's debilitated condition and advanced age, we will go with conservative therapy at the time being. 3. Hypokalemia. We will recheck her labs. 4. Anemia. We will recheck her labs. 5. History of cerebrovascular accident. Continue with current care. 6. Hypertension. Continue with current care. 7. Hyperlipidemia. Continue with her pravastatin. Please see hospital chart for full details. MD JENNYFER Will/MODL /[id number]
[2019-12-24] MEDS: POTASSIUM CHLORIDE 10MEQ EA PO SCH (08:59)
[2019-12-24] MEDS: FUROSEMIDE 20 MG TAB PO SCH (08:59)
[2019-12-24] MEDS: METOPROLOL TARTRATE 25 MG TAB PO SCH ×2 (09:00→17:00)
[2019-12-24] MEDS: FAMOTIDINE 20 MG TAB PO SCH (09:00)
[2019-12-24] MEDS: BALSAM PERU/CASTOR OIL 60 GM OINT...G. TP SCH (11:22)
--- NOTE | 2019-12-24 16:17 | NUR ---
RCD PT BY BED PT IS ALERT AND ORIENTED IN 1-2 VITALS CHECKED ,PT RESTING ON BED BED LOW AND LOCKED CALL LIGHT IN REACH
--- NOTE | 2019-12-24 16:23 | NUR ---
TRANSFER REPORT CALLED TO MED SURG2. PATIENT TRANSFERRED TO ROOM 209 PER BED WITH RN AND PCT. PATIENT IN STABLE CONDITION WITH NO S/S OF RESPIRATORY DISTRESS. NO PAIN VOICED. TELEMETRY APPLIED. BED ALARM APPLIED. CALL LIGHT IS WITHIN REACH, PATIENT INSTRUCTED TO CALL FOR ASSISTANCE NEEDED. RECEIVING RN PRESENT IN ROOM UPON TRANSFER.
--- NOTE | 2019-12-24 18:04 | Progress Note ---
DATE: 12/24/2019 Cardiology Progress Note SUBJECTIVE: No events. No complaints. OBJECTIVE: VITAL SIGNS: Temperature is 98.6, heart rate 70, respirations are 18, blood pressure is 115/69, and oxygen saturation is 100%. GENERAL: She is a chronically ill-appearing elderly woman, lying comfortably in bed, in no apparent distress. CARDIOVASCULAR: Regular rate and rhythm. Systolic murmur at the right sternal border. LUNGS: Clear to auscultation. ABDOMEN: Soft, nontender, nondistended. EXTREMITIES: No edema. CARDIOVASCULAR MEDICATIONS: Reviewed. IMPRESSION: 1. Peripheral arterial disease. 2. Lower extremity wound. 3. Coronary artery disease, status post coronary artery bypass graft surgery. 4. Cerebrovascular accident with hemiplegia and aphasia. 5. History of deep venous thrombosis, on anticoagulation. 6. Hypertension. 7. Hyperlipidemia. 8. Chronic debilitation. Given the patient's felt debility, she is a poor candidate for invasive revascularization. Continue local wound care and antibiotics. We will need to discuss goals of care with family. Continue current cardiovascular medications. DO LULU Sanchez/MODL /[id number]
--- NOTE | 2019-12-24 18:38 | NUR ---
PT RESTING ON BED BED SIDE REPORT GIVE TO ONCOMING NURSE
--- NOTE | 2019-12-24 19:30 | NUR ---
BSSR RECIEVED FROM DAYSHIFT RN, PATIENT TRANSFERRED TO ROOM 209, AT END OF DAYSHIFT, PATIENT SEEN IN STABLE CONDITION WITH NO S/S OF RESPIRATORY DISTRESS. NO PAIN VOICED. TELEMETRY APPLIED. BED ALARM APPLIED. CALL LIGHT IS WITHIN REACH, PATIENT INSTRUCTED TO CALL FOR ASSISTANCE NEEDED.
--- NOTE | 2019-12-24 21:03 | NUR ---
wound care consult completed prior to transfer to the floor NURSING TO CLEAN LEFT FOOT DARKENED TOES AND HEEL DTI WITH NORMAL SALINE DAILY AND APPLY VENELEX OINTMENT AND LEAVE OPEN TO AIR NURSING TO CLEAN RIGHT BUTTOCKS STAGE 2 ULCERATION AND SACRAL DTI WITH NORMAL SALINE DAILY AND APPLY VENELEX OINTMENT AND COVER WITH ALLEVYN FOAM DRESSING
--- NOTE | 2019-12-24 21:05 | NUR ---
SCHEDULE MEDICATION GIVEN W/O DIFFICULTY CRUSHED IN APPLESAUCE
[2019-12-24] MEDS: PRAVASTATIN 20 MG TAB PO SCH (21:17)
[2019-12-24] MEDS: ACETAMINOPHEN/CODEINE 300MG - 30MG TAB PO PRN (21:18)
[2019-12-24] MEDS: CEFTRIAXONE SOD 1 GM/NS 50 ML 50 ML IV SCH (23:35)
[2019-12-25] VITALS (12 sets, daily range): BP systolic 85–139; BP diastolic 56–82
--- NOTE | 2019-12-25 01:21 | NUR ---
PATIENT SEEN RESTING COMFORTABLY IN BED, SKIN WARM DRY, REPOSITIONED Q2T WITH PILLOWS, PLACED ON LEFT SIDE, CALL LIGHT WITHIN REACH OXYGEN SATURATION 92 ON RA, PLACED ON OXYGEN 2 LITERS VIA NASAL CANNULA PER OXYGEN PROTOCOL
[2019-12-25] MEDS: ACETAMINOPHEN/CODEINE 300MG - 30MG TAB PO PRN (05:10)
[2019-12-25] MEDS ORDERED: POTASSIUM CHLORIDE 10MEQ EA PO ONE (05:30)
--- NOTE | 2019-12-25 05:34 | NUR ---
md canales paged via answering service for orders @ 9058, call back received by MD CANALES, ADVISED HIM THAT PATIENT HAS ONLY URINATED SMALL AMOUNT THIS SHIFT, BLADDER SCAN PERFORMED, ONLY 145CC URINE NOTED, ORDERED PRN STRAIGHT CATH IF URINE >300CC PER SCAN Q6 hOURS
--- NOTE | 2019-12-25 07:35 | NUR ---
PATIENT IN BED RESTING WITH NO S/S OF DISTRESS. SWELLING TO LEFT LEG WITH BLISTERS TO TOES. BED IN LOWER POSITION AND LOCKED, CALL LIGHT AT REACH.
[2019-12-25] MEDS: FUROSEMIDE 20 MG TAB PO SCH (09:16)
[2019-12-25] MEDS: POTASSIUM CHLORIDE 10MEQ EA PO SCH (09:16)
[2019-12-25] MEDS: FAMOTIDINE 20 MG TAB PO SCH (09:16)
[2019-12-25] MEDS: METOPROLOL TARTRATE 25 MG TAB PO SCH ×2 (09:16→17:26)
[2019-12-25] MEDS: BALSAM PERU/CASTOR OIL 60 GM OINT...G. TP SCH (09:17)
--- NOTE | 2019-12-25 11:19 | NUR ---
PATIENT REPOSITIONED IN BED. CALL LIGHT AT REACH.
--- NOTE | 2019-12-25 15:33 | NUR ---
PATIENT IN BED EXERCISING WITH PHYSICAL THERAPY. WILL CONTINUE TO MONITOR.
--- NOTE | 2019-12-25 18:27 | Progress Note ---
DATE: 12/25/2019 Cardiology Progress Note. SUBJECTIVE: The patient complains of chest pain. She denies any shortness of breath. OBJECTIVE: VITAL SIGNS: Temperature 98.2 degrees, pulse 72, respiratory rate 18, blood pressure 139/78, and oxygen saturation 94% on room air. GENERAL: Elderly frail woman, in no acute distress. LUNGS: Clear to auscultation bilaterally. No wheezes or crackles. CARDIOVASCULAR: Normal rate, regular rhythm. Systolic murmur at the right sternal border. ABDOMEN: Soft, nontender. EXTREMITIES: 1+ pitting edema on the right with lymphedema on the left. CHRONIC MEDICATIONS: Metoprolol tartrate 25 mg p.o. b.i.d. and furosemide 20 mg p.o. daily. LABORATORY DATA: None today. TELEMETRY: Personally reviewed and interpreted, revealing normal sinus rhythm. IMPRESSION: 1. Chest pain. 2. Peripheral arterial disease. 3. Lower extremity wound. 4. Coronary artery disease status post CABG. 5. History of cerebrovascular accident with hemiplegia and aphasia. 6. History of DVT on anticoagulation. 7. Hypertension. 8. Hyperlipidemia. RECOMMENDATIONS: Given the patient's debility, the patient is a poor candidate for invasive procedures. Continue wound care and antibiotics. Continue current cardiac medications. Check troponin. Blood pressure is adequately controlled. Recommend medical therapy. Start aspirin. Check BNP. Recommend discussing goals of care with the patient's family. Thank you for this consult. We will continue to follow. Precious Holley MD ABS/MODL /[id number]
[2019-12-25 20:02] LABS: BASOPHILS % 0.4 % (0.0-1.0); EOSINOPHILS # (AUTO) 0.3 (0.0-0.4); EOSINOPHILS % 3.2 % (0.0-6.0); HEMATOCRIT 24.1 % (34.2-44.1); HEMOGLOBIN 7.5 g/dL (12.0-16.0); LYMPHOCYTES # (AUTO) 1.2 (1.0-3.2); MEAN CORPUSCULAR HEMOGLOBIN 27.1 pg (28-32); MEAN CORPUSCULAR HGB CONC 31.1 g/dL (31-35); MONOCYTES # (AUTO) 0.8 (0.2-0.8); MONOCYTES % 9.7 % (4.4-11.3); NEUTROPHILS # (AUTO) 5.6 (2.1-6.9); NEUTROPHILS % 71.3 % (38.7-80.0); PLATELET COUNT 420 x10e3/uL (140-360); RED BLOOD COUNT 2.77 x10e6/uL (3.6-5.1); RED CELL DISTRIBUTION WIDTH 17.5 % (11.7-14.4)
[2019-12-25 20:14] LABS: INR 4.51
[2019-12-25 20:20] LABS: ANION GAP 7.3 mmol/L (8-16); BLOOD UREA NITROGEN 10 mg/dL (7-26); BUN/CREATININE RATIO 14 (6-25); CALCIUM 7.5 mg/dL (8.4-10.2); CARBON DIOXIDE 22 mmol/L (22-29); CHLORIDE 120 mmol/L (98-107); CREATININE, SERUM 0.73 mg/dL (0.57-1.11); EST GLOMERULAR FILTRATION RATE > 60 ML/MIN (60-); GLUCOSE 66 mg/dL (74-118); POTASSIUM 3.3 mmol/L (3.5-5.1); PROTHROMBIN TIME 46.5 seconds (11.9-14.5); SODIUM 146 mmol/L (136-145)
[2019-12-25 20:35] LABS: ALANINE AMINOTRANSFERASE 12 IU/L (0-55); ALBUMIN 1.5 g/dL (3.5-5.0); ALBUMIN/GLOBULIN RATIO 0.5 (0.8-2.0); ALKALINE PHOSPHATASE 95 IU/L (40-150); ANION GAP 8.3 mmol/L (8-16); BLOOD UREA NITROGEN 9 mg/dL (7-26); BUN/CREATININE RATIO 12 (6-25); CALCIUM 7.4 mg/dL (8.4-10.2); CARBON DIOXIDE 22 mmol/L (22-29); CHLORIDE 120 mmol/L (98-107); CREATININE, SERUM 0.73 mg/dL (0.57-1.11); EST GLOMERULAR FILTRATION RATE > 60 ML/MIN (60-); GLUCOSE 68 mg/dL (74-118); POTASSIUM 3.3 mmol/L (3.5-5.1); SODIUM 147 mmol/L (136-145)
[2019-12-25] MEDS: PRAVASTATIN 20 MG TAB PO SCH (20:46)
[2019-12-25] MEDS: CEFTRIAXONE SOD 1 GM/NS 50 ML 50 ML IV SCH (23:45)
[2019-12-26] VITALS (9 sets, daily range): BP systolic 115–131; BP diastolic 51–73
[2019-12-26] MEDS ORDERED: POTASSIUM CHLORIDE 10MEQ EA PO ONE (06:30)
--- NOTE | 2019-12-26 07:31 | NUR ---
ASSUMED CARE. PATIENT AWAKE AND ALERT. ACYANOTIC. RESTING IN BED SMILING. NO DISTRESS NOTED. SIDE RAILS UP X2. BED LOW. CALL LIGHT IN REACH.
[2019-12-26] MEDS: ASPIRIN 81 MG ENTERIC COATED PO SCH (08:48)
[2019-12-26] MEDS: FUROSEMIDE 20 MG TAB PO SCH (08:48)
[2019-12-26] MEDS: METOPROLOL TARTRATE 25 MG TAB PO SCH ×2 (08:48→17:09)
[2019-12-26] MEDS: POTASSIUM CHLORIDE 10MEQ EA PO SCH (08:48)
[2019-12-26] MEDS: FAMOTIDINE 20 MG TAB PO SCH (08:49)
[2019-12-26] MEDS: BALSAM PERU/CASTOR OIL 60 GM OINT...G. TP SCH (08:49)
[2019-12-26] MEDS: FUROSEMIDE INJ 10 MG/ML 4 ML VIAL IV SCH (18:51)
--- NOTE | 2019-12-26 19:10 | Progress Note ---
DATE: 12/26/2019 Cardiology Progress Note SUBJECTIVE: The patient denies chest pain or shortness of breath. OBJECTIVE: VITAL SIGNS: Temperature 97.5 degrees, pulse 68, respiratory rate 20, blood pressure 131/57, and oxygen saturation 97% on room air. GENERAL: Elderly frail woman, in no acute distress. LUNGS: Clear to auscultation bilaterally. No wheezes or crackles. CARDIOVASCULAR: Normal rate, regular rhythm. Systolic murmur in the right sternal border. ABDOMEN: Soft, nontender. EXTREMITIES: 1+ pitting edema on the right, with lymphedema on the left. CARDIAC MEDICATIONS: 1. Metoprolol tartrate 25 mg p.o. b.i.d. 2. Aspirin 81 mg p.o. daily. 3. Furosemide 10 mg p.o. daily. LABORATORY DATA: None today. TELEMETRY: Personally reviewed and interpreted, revealing normal sinus rhythm. IMPRESSION: 1. Chest pain. 2. Peripheral arterial disease. 3. Lower extremity wound. 4. Coronary artery disease , status post coronary artery bypass graft. 5. Elevated BNP. 6. History of cerebrovascular accident with hemiplegia and aphasia. 7. History of DVT, on anticoagulation. 8. Hypertension. 9. Hyperlipidemia. RECOMMENDATIONS: Given the patient's debility, the patient is a poor candidate for invasive procedures. Recommend medical therapy. Continue aspirin. Change Lasix to IV, given elevated BNP. The patient's blood pressure is adequately controlled for age. Continue current cardiac medication. Recommend discussing goals of care with the patient's family. Thank you for this consult. We will continue to follow. Precious Holley MD ABS/MODL /[id number]
--- NOTE | 2019-12-26 19:24 | NUR ---
REPORT RECEIVED BY ONCOMING NURSE.
[2019-12-26 20:28] LABS: ANION GAP 8.7 mmol/L (8-16); BLOOD UREA NITROGEN 9 mg/dL (7-26); BUN/CREATININE RATIO 12 (6-25); CALCIUM 7.8 mg/dL (8.4-10.2); CARBON DIOXIDE 24 mmol/L (22-29); CHLORIDE 119 mmol/L (98-107); CREATININE, SERUM 0.77 mg/dL (0.57-1.11); EST GLOMERULAR FILTRATION RATE > 60 ML/MIN (60-); GLUCOSE 73 mg/dL (74-118); POTASSIUM 3.7 mmol/L (3.5-5.1); SODIUM 148 mmol/L (136-145)
[2019-12-26] MEDS: PRAVASTATIN 20 MG TAB PO SCH (22:13)
[2019-12-26] MEDS: CEFTRIAXONE SOD 1 GM/NS 50 ML 50 ML IV SCH (23:45)
[2019-12-27] VITALS (8 sets, daily range): BP systolic 115–151; BP diastolic 56–68
[2019-12-27 05:40] LABS: BASOPHILS % 0.3 % (0.0-1.0); EOSINOPHILS # (AUTO) 0.2 (0.0-0.4); EOSINOPHILS % 3.2 % (0.0-6.0); HEMATOCRIT 26.1 % (34.2-44.1); HEMOGLOBIN 8.3 g/dL (12.0-16.0); LYMPHOCYTES # (AUTO) 1.1 (1.0-3.2); LYMPHOCYTES % 14.3 % (18.0-39.1); MEAN CORPUSCULAR HEMOGLOBIN 27.8 pg (28-32); MEAN CORPUSCULAR HGB CONC 31.8 g/dL (31-35); MEAN CORPUSCULAR VOLUME 87.3 fL (81-99); MONOCYTES # (AUTO) 0.8 (0.2-0.8); MONOCYTES % 10.7 % (4.4-11.3); NEUTROPHILS # (AUTO) 5.3 (2.1-6.9); PLATELET COUNT 488 x10e3/uL (140-360); RED BLOOD COUNT 2.99 x10e6/uL (3.6-5.1); RED CELL DISTRIBUTION WIDTH 17.8 % (11.7-14.4)
[2019-12-27 05:59] LABS: INR 4.51
[2019-12-27 06:06] LABS: PROTHROMBIN TIME 46.5 seconds (11.9-14.5)
[2019-12-27 06:07] LABS: ALANINE AMINOTRANSFERASE 13 IU/L (0-55); ALBUMIN 1.6 g/dL (3.5-5.0); ALBUMIN/GLOBULIN RATIO 0.5 (0.8-2.0); ALKALINE PHOSPHATASE 98 IU/L (40-150); ANION GAP 9.4 mmol/L (8-16); BLOOD UREA NITROGEN 10 mg/dL (7-26); BUN/CREATININE RATIO 14 (6-25); CALCIUM 7.5 mg/dL (8.4-10.2); CARBON DIOXIDE 24 mmol/L (22-29); CHLORIDE 119 mmol/L (98-107); CREATININE, SERUM 0.73 mg/dL (0.57-1.11); EST GLOMERULAR FILTRATION RATE > 60 ML/MIN (60-); GLUCOSE 62 mg/dL (74-118); MAGNESIUM 1.7 MG/DL (1.3-2.1); POTASSIUM 3.4 mmol/L (3.5-5.1); SODIUM 149 mmol/L (136-145)
--- NOTE | 2019-12-27 06:33 | NUR ---
called answering service for new consult for dr de los santos
[2019-12-27 08:54] LABS: BAND NEUTROPHILS % (MANUAL) 1 %; EOSINOPHILS % (MANUAL) 3 % (0-7); LYMPHOCYTES % (MANUAL) 9 % (19-48); MONOCYTES % (MANUAL) 6 % (3.4-9.0); NEUTROPHILS % (MANUAL) 81 % (40-74)
[2019-12-27 08:55] LABS: PLATELET ESTIMATE ADEQUATE; PLATELET MORPHOLOGY COMMENT FEW EDTA CLUMPING; RBC MORPHOLOGY COMMENT NORMAL
[2019-12-27 08:56] LABS: ANISOCYTOSIS SLIGHT
[2019-12-27] MEDS: POTASSIUM CHLORIDE 10MEQ EA PO SCH (09:00)
[2019-12-27] MEDS: ASPIRIN 81 MG ENTERIC COATED PO SCH (09:00)
[2019-12-27] MEDS: METOPROLOL TARTRATE 25 MG TAB PO SCH ×2 (09:00→16:49)
[2019-12-27] MEDS: FAMOTIDINE 20 MG TAB PO SCH (09:00)
[2019-12-27] MEDS: FUROSEMIDE INJ 10 MG/ML 4 ML VIAL IV SCH ×2 (09:21→16:49)
--- NOTE | 2019-12-27 09:21 | NUR ---
Patient was offered PO medications. She refused at this time. Will attempt later. She also does not want to eat breakfast at this time.
--- NOTE | 2019-12-27 15:51 | Diagnostic Imaging Report ---
EXAMINATION: FOOT LEFT COMPLETE INDICATION: Osteomyelitis COMPARISON: None FINDINGS: No acute fracture or dislocation. Alignment is anatomic. Soft tissue ulceration along the lateral aspect of the great toe. No specific radiographic findings of underlying osteomyelitis. Diffuse foot soft tissue swelling. Scattered degenerative changes. Plantar calcaneal spur. IMPRESSION: Soft tissue ulceration at the lateral aspect of the great toe and diffuse foot soft tissue swelling. No acute osseous injury or specific radiographic evidence of underlying osteomyelitis. Signed by: Emma Llanos MD on 12/27/2019 3:48 PM
--- NOTE | 2019-12-27 16:09 | NUR ---
Nutrition Intervention Note RD Recommendation(s) for Physician: - Continue Cardiac, GI Soft diet. Recommend adding chopped meats 2/2 poor dentition - Recommend Ensure Enlive TID for adequac - Recommend MVI with minerals once daily, Vitamin C, and Zinc Sulfate for wound healing - Recommend Todd 1 packet BID to promote wound healing Pt meets criteria for moderate protein calorie malnutrition Plan of Care: RD following, monitoring for tolerance and adequacy, ONS, vitamin, and mineral rec's Nutrition reason for involvement: follow up RD Assessment 12/26: Follow up. Pt sitting up in bed at time of visit, pt non-verbal and nods to any question asked, unable to determine comprehension. Noted very little intake of breakfast and lunch trays at bedside. Per RN pt refused breakfast this am and noted 0-25% meal intake per chart. Per MD notes pt is a poor candidate for invasive interventions and pending discussion with family regarding goals of care. Chart reviewed. Will continue to monitor. 12/21: 84 YOF admitted for lymphedema and PAD known from prior admission. 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 Poor intake during and prior to admit noted per documentation. Pt with dementia and aphasia, unable to obtain additional hx at this time. Per prior admit pt with poor dentition, family would chop foods at home, and no reported difficulties swallowing. Pt with multiple wounds on admit. Rec's provided to promote wound healing. Chart reviewed. Will continue to monitor. Principal Problems/Diagnoses: lymphedema, PAD PMH: Hypertension, dementia, reflux disease, hyperlipidemia, and DVT GI: abdomen non-tender, LBM 12/25 Skin: sacral stage III PU, R buttock stage II, L heel no staging- black Labs: 12/26: Na 149, K 3.4, BUN 10 Cr. 0.73, Gluc 62 12/21: Na 142, K 2.7, BUN 9, Cr 0.54, Gluc 68, Ca 6.1, Mg 1.5 Meds: abx, lasix, pepcid, kdur, zofran Ht: 65in per prior admit, currently listed as 70 in Wt: 161 lb (12/21) 141 lbs (12/02) 142lb (11/25) BMI: 23.1 kg/m2 IBW: 125lb +/- 10% Malnutrition Evaluation (12/27/19) The patient meets criteria for MODERATE protein-calorie malnutrition. Energy intake: <50% of estimated energy requirements for >5 days Weight loss: No wt loss Fat loss: None, ample tricep skinfold thickness Muscle loss: Moderate, shoulder square Supporting Evidence: Fluid accumulation: none observed Functional Status: not assessed Nutrition Prescription (Diet Order): Cardiac, GI soft Estimated Nutritional Needs: Calories: 1410 1602 kcal (22-25kcal/kg/d) Weight used : CBW- prior admit wt used 2/2 +2 edema Protein : 77 96g (1.2-1.5g/kg/d) Weight used: CBW Diet Adequacy: Not meeting calorie needs, Not meeting protein needs Tolerance: Tolerating po Diet Education Needs Assessment: Diet education not indicated. Nutrition Care Level: moderate Nutrition Diagnosis: Increased nutrient needs (protein, vitamins, minerals) related to skin integrity as evidenced by multiple wounds on admit Goal: Patient will meet 75-100% of estimated needs by follow up Progress: not progressing Interventions: Modified diet, Commercial beverage, vitamin and mineral supplementation, recommend modifications Monitoring/Evaluation: Total energy intake, Total protein intake, Modified diet, Liquid supplement, Weight change Signed: EMERY Marquez RD, [facility] Addendum: 12/27/19 at 1637 by Dali Corley DIET Pt currently on Pureed texture diet, continue current diet per EMERY Huston RD, [facility]
[2019-12-27] MEDS: BALSAM PERU/CASTOR OIL 60 GM OINT...G. TP SCH (18:09)
--- NOTE | 2019-12-27 19:49 | Progress Note ---
DATE: 12/27/2019 SUBJECTIVE: The patient denies chest pain or shortness of breath. OBJECTIVE: VITAL SIGNS: Temperature 98.1 degrees, pulse 94, respiratory rate 16, blood pressure 151/67, and oxygen saturation 98%. GENERAL: Elderly woman, frail, no acute distress. Awake and alert. LUNGS: Clear to auscultation bilaterally. No wheezes or crackles. CARDIOVASCULAR: Normal rate. Regular rhythm. Systolic murmur at the right sternal border. ABDOMEN: Soft and nontender. EXTREMITIES: No edema on the right, lymphedema on the left. CARDIAC MEDICATIONS: 1. Lasix 20 mg IV b.i.d. 2. Aspirin 81 mg p.o. daily. 3. Metoprolol tartrate 25 mg p.o. b.i.d. LABORATORY DATA: WBC 7.49, hemoglobin 8.3, hematocrit 26.1, and platelets 488. Sodium 149, potassium 3.4, chloride 119, CO2 10, and BUN 0.73. INR 4.5. Telemetry was personally reviewed and interpreted revealing normal sinus rhythm. IMPRESSION: 1. Chest pain. 2. Peripheral arterial disease. 3. Lower extremity wound. 4. Coronary artery disease status post coronary artery bypass grafting. 5. Elevated BNP. 6. History of cerebrovascular accident with hemiplegia and aphasia. 7. History of deep vein thrombosis, on anticoagulation. 8. Hypertension. 9. Hyperlipidemia. RECOMMENDATIONS: Given the patient's debility, the patient is a poor candidate for invasive procedures. Recommend medical therapy. Continue aspirin. Continue IV Lasix. Monitor creatinine closely. The patient's blood pressure for the most part adequately controlled for age. Continue current cardiac medications. Recommend discussing goals of care with the patient's family. Monitor for signs and symptoms of bleeding. Note INR is elevated suspect due to poor nutritional status, as she is currently not bleeding. We will allow the INR to drift down. We will continue to follow. Precious Holley MD ABS/MODL /[id number]
--- NOTE | 2019-12-27 20:14 | Consultation ---
DATE OF CONSULTATION: 12/27/2019 CHIEF COMPLAINT AND HISTORY OF CHIEF COMPLAINT: Ms. Danyelle Colin is a most pleasant 84-year-old female with ischemic extremities, lower extremities bilateral. She has history of coronary artery disease as well as cerebrovascular accident resulting in aphasia. She has had a coronary artery bypass graft. She currently has severe peripheral vascular disease. Arterial Dopplers do show and concur severe peripheral arterial disease as diagnosed by Dr. Lake on admission. REVIEW OF SYSTEMS: Otherwise negative. PREVIOUS MEDICAL HISTORY: Includes most significantly peripheral arterial disease and coronary artery disease. PHYSICAL EXAMINATION: Physical evaluation of the lower extremity: VASCULAR STATUS: The patient has nonpalpable pedal pulses in either dorsalis pedis or posterior tibial, left or right feet. NEUROLOGICAL: There appears to be a gross loss of protective sensation of the plantar aspect of the left foot where the chronic abscess is present, does have some degree of pain sensation. DERMATOLOGIC: There are large bullous lesions on the 1st and 2nd digits extending from the distal aspect of the toe all the way to proximal metatarsal heads. MUSCULOSKELETAL: Evaluation is otherwise noncontributory. DIAGNOSTIC DATA: Radiographs have been ordered to rule out osteomyelitis, although this is thought somewhat unlikely, as these bullous lesions appeared to be somewhat superficial. 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 Left foot posterior heels have pre-breakdown. The right heel has a heel protector, which was not in use at the time of my visit. This was reapplied and she will need one for the left as well. This was ordered. I have recommended and the patient was consented for an incision and drainage of the bullous lesions on the left foot, 1st and 2nd digits. Without a need for local, the area was prepped and draped in the usual aseptic manner utilizing Betadine prep and an incision and drainage was performed of the left foot bullous lesions. A significant amount of nonpurulent serous exudate was extruded from the wound and blistered area. The tissue underneath had a reddened ischemic appearance, but did not appear to be full thickness through skin and subcutaneous tissue. The superficial bullous lesion was debrided away and a Betadine wet-to-dry dressing was applied to help facilitate drying of the area. The patient will have the Betadine change once daily. She is currently on IV antibiotics and otherwise palliative care and should not need more aggressive debridements at this time. ANAND Hunter /[id number] cc: DO Willie Sanchez MD
[2019-12-27] MEDS: PRAVASTATIN 20 MG TAB PO SCH (21:33)
[2019-12-28] VITALS (7 sets, daily range): BP systolic 101–130; BP diastolic 51–60
[2019-12-28] MEDS ORDERED: METOPROLOL TARTRATE INJ 1 MG/ML VIAL IV PRN (01:00)
[2019-12-28] MEDS: CEFTRIAXONE SOD 1 GM/NS 50 ML 50 ML IV SCH (01:14)
[2019-12-28 05:56] LABS: BASOPHILS % 0.3 % (0.0-1.0); EOSINOPHILS # (AUTO) 0.1 (0.0-0.4); EOSINOPHILS % 2.2 % (0.0-6.0); HEMATOCRIT 25.2 % (34.2-44.1); LYMPHOCYTES % 15.8 % (18.0-39.1); MEAN CORPUSCULAR HEMOGLOBIN 27.5 pg (28-32); MEAN CORPUSCULAR HGB CONC 31.7 g/dL (31-35); MEAN CORPUSCULAR VOLUME 86.6 fL (81-99); MONOCYTES # (AUTO) 0.9 (0.2-0.8); MONOCYTES % 13.5 % (4.4-11.3); NEUTROPHILS # (AUTO) 4.4 (2.1-6.9); NEUTROPHILS % 67.4 % (38.7-80.0); PLATELET COUNT 423 x10e3/uL (140-360); RED BLOOD COUNT 2.91 x10e6/uL (3.6-5.1); RED CELL DISTRIBUTION WIDTH 17.7 % (11.7-14.4)
[2019-12-28 06:16] LABS: ALANINE AMINOTRANSFERASE 15 IU/L (0-55); ALBUMIN 1.7 g/dL (3.5-5.0); ALBUMIN/GLOBULIN RATIO 0.5 (0.8-2.0); ALKALINE PHOSPHATASE 106 IU/L (40-150); BLOOD UREA NITROGEN 10 mg/dL (7-26); BUN/CREATININE RATIO 13 (6-25); CALCIUM 7.6 mg/dL (8.4-10.2); CARBON DIOXIDE 23 mmol/L (22-29); CHLORIDE 119 mmol/L (98-107); CREATININE, SERUM 0.75 mg/dL (0.57-1.11); EST GLOMERULAR FILTRATION RATE > 60 ML/MIN (60-); GLUCOSE 61 mg/dL (74-118); MAGNESIUM 1.7 MG/DL (1.3-2.1); SODIUM 151 mmol/L (136-145)
[2019-12-28 06:29] LABS: INR 4.4
[2019-12-28 06:34] LABS: PROTHROMBIN TIME 45.6 seconds (11.9-14.5)
--- NOTE | 2019-12-28 07:20 | NUR ---
Dr. Varela notified potassium level 3.0 New orders received
[2019-12-28] MEDS ORDERED: PHYTONADIONE 10 MG/ML AMP SQ ONE (07:30)
[2019-12-28] MEDS: FUROSEMIDE INJ 10 MG/ML 4 ML VIAL IV SCH ×2 (09:44→17:36)
[2019-12-28] MEDS: POTASSIUM CHLORIDE 10MEQ EA PO SCH (09:44)
[2019-12-28] MEDS: ASPIRIN 81 MG ENTERIC COATED PO SCH (09:44)
[2019-12-28] MEDS: FAMOTIDINE 20 MG TAB PO SCH (09:45)
[2019-12-28] MEDS: METOPROLOL TARTRATE 25 MG TAB PO SCH ×2 (09:45→17:36)
--- NOTE | 2019-12-28 11:51 | Progress Note ---
DATE: 12/28/2019 Cardiology Progress Note SUBJECTIVE: The patient is limited by aphasia. She appears to deny pain. OBJECTIVE: VITAL SIGNS: Temperature 97.6 degrees, pulse 89, respiratory rate 14, blood pressure 119/60, and oxygen saturation is 100%. GENERAL: Elderly, chronically ill-appearing woman, no acute distress, awake. LUNGS: Clear to auscultation bilaterally. No wheeze or crackles. CARDIOVASCULAR: Normal rate, regular rhythm. Systolic murmur at the right sternal border. ABDOMEN: Soft, nontender. EXTREMITIES: No edema on the right, lymphedema on the left. CARDIAC MEDICATIONS: Metoprolol tartrate 25 mg p.o. b.i.d., furosemide 20 mg IV b.i.d., and aspirin 81 mg p.o. daily. LABORATORY DATA: WBC 6.5, hemoglobin 8, hematocrit 25.2, platelets 423. Sodium 151, potassium 3, chloride 119, CO2 of 23, BUN 10, and creatinine 0.75. Telemetry was personally reviewed and interpreted revealing normal sinus rhythm with PVCs. In addition, there was one episode of supraventricular tachycardia observed overnight. There appears to be a paroxysmal atrial tachycardia. IMPRESSION: 1. Chest pain. 2. Peripheral arterial disease. 3. Supraventricular tachycardia. 4. Lower extremity wound. 5. Coronary artery disease, status post CABG. 6. Elevated BNP. 7. History of cerebrovascular accident with hemiplegia and aphasia. 8. History of deep venous thrombosis, on anticoagulation. 9. Hypertension. 10. Hyperlipidemia. RECOMMENDATIONS: Given the patient's debility, the patient is a poor candidate for invasive procedures. Recommend medical therapy. Continue aspirin. Continue IV Lasix. Creatinine has been stable, but appears that she needs more free water. The patient's blood pressure is controlled. Continue current cardiac medications. INR remains elevated, but slightly better likely due to poor nutrition status as warfarin has been on hold. As she is currently not bleeding, we will allow the INR to drift down. Recommend discussing goals of care with the patient's family. Thank you for this consult. We will continue to follow. Precious Holley MD ABS/MODL /[id number]
[2019-12-28] MEDS: BALSAM PERU/CASTOR OIL 60 GM OINT...G. TP SCH (14:00)
[2019-12-28] MEDS: PRAVASTATIN 20 MG TAB PO SCH (21:36)
[2019-12-28] MEDS: POVIDONE IODINE 10% 120 ML BTL EXT SCH (21:36)
[2019-12-29] VITALS: BP 116/50
[2019-12-29] MEDS: CEFTRIAXONE SOD 1 GM/NS 50 ML 50 ML IV SCH ×2 (00:01→23:53)
[2019-12-29 05:46] LABS: BASOPHILS % 0.3 % (0.0-1.0); EOSINOPHILS # (AUTO) 0.1 (0.0-0.4); EOSINOPHILS % 1.6 % (0.0-6.0); HEMATOCRIT 26.8 % (34.2-44.1); HEMOGLOBIN 8.4 g/dL (12.0-16.0); LYMPHOCYTES # (AUTO) 1.1 (1.0-3.2); LYMPHOCYTES % 16.9 % (18.0-39.1); MEAN CORPUSCULAR HEMOGLOBIN 27.1 pg (28-32); MEAN CORPUSCULAR HGB CONC 31.3 g/dL (31-35); MEAN CORPUSCULAR VOLUME 86.5 fL (81-99); MONOCYTES % 15.3 % (4.4-11.3); NEUTROPHILS # (AUTO) 4.2 (2.1-6.9); NEUTROPHILS % 65.1 % (38.7-80.0); PLATELET COUNT 446 x10e3/uL (140-360)
[2019-12-29 06:00] LABS: INR 2.09
[2019-12-29 06:15] LABS: ALANINE AMINOTRANSFERASE 17 IU/L (0-55); ALBUMIN 1.7 g/dL (3.5-5.0); ALBUMIN/GLOBULIN RATIO 0.4 (0.8-2.0); ALKALINE PHOSPHATASE 111 IU/L (40-150); ANION GAP 13.8 mmol/L (8-16); BLOOD UREA NITROGEN 11 mg/dL (7-26); BUN/CREATININE RATIO 13 (6-25); CALCIUM 8.3 mg/dL (8.4-10.2); CARBON DIOXIDE 23 mmol/L (22-29); CHLORIDE 117 mmol/L (98-107); CREATININE, SERUM 0.83 mg/dL (0.57-1.11); EST GLOMERULAR FILTRATION RATE > 60 ML/MIN (60-); GLUCOSE 69 mg/dL (74-118); SODIUM 151 mmol/L (136-145)
[2019-12-29 06:16] LABS: POTASSIUM 2.8 mmol/L (3.5-5.1)
--- NOTE | 2019-12-29 07:05 | NUR ---
RCD PT AT BED PT IS ALERT AND ORIENTED IN TO 1-2 RESTING ON BED IV PATENT BY SALINE FLUSH BED LOW AND LOCKED CALL LIGHT IN REACH
[2019-12-29] MEDS ORDERED: POTASSIUM CHLORIDE 20 MEQ TAB CR PO SCH ×2 (07:45→11:30)
[2019-12-29 08:00] VITALS: BP 134/72
[2019-12-29 08:30] VITALS: BP 134/72
[2019-12-29] MEDS: FAMOTIDINE 20 MG TAB PO SCH (09:00)
[2019-12-29] MEDS: POVIDONE IODINE 10% 120 ML BTL EXT SCH (09:00)
[2019-12-29] MEDS: FUROSEMIDE INJ 10 MG/ML 4 ML VIAL IV SCH ×2 (09:00→17:00)
[2019-12-29] MEDS: BALSAM PERU/CASTOR OIL 60 GM OINT...G. TP SCH (09:00)
[2019-12-29] MEDS: METOPROLOL TARTRATE 25 MG TAB PO SCH ×2 (09:00→17:00)
[2019-12-29] MEDS: ASPIRIN 81 MG ENTERIC COATED PO SCH (09:00)
[2019-12-29] MEDS: POTASSIUM CHLORIDE 10MEQ EA PO SCH (09:00)
[2019-12-29 12:01] VITALS: BP 117/63
--- NOTE | 2019-12-29 14:54 | NUR ---
Left message for Dr. Varela regarding dc plan. Awaiting response.
--- NOTE | 2019-12-29 15:43 | NUR ---
DRESSING CHANGED ON THE LEFT FOOT AND ON LOWER SACRUM
[2019-12-29 16:00] VITALS: BP 130/70
--- NOTE | 2019-12-29 18:40 | NUR ---
PT RESTING ON BED BED SIDE REPORT GIVEN TO ONCOMING NURSE
--- NOTE | 2019-12-29 19:41 | Progress Note ---
DATE: 12/29/2019 Cardiology Progress Note SUBJECTIVE: The patient is aphasic. No history could be obtained. OBJECTIVE: VITAL SIGNS: Temperature 97.4 degrees, pulse 71, respiratory rate 18, blood pressure 117/63, oxygen saturation 96%. GENERAL: Chronically ill-appearing elderly woman, no acute distress, awake. LUNGS: Clear to auscultation bilaterally. No wheezes or crackles. CARDIOVASCULAR: Normal rate, regular rhythm. Systolic murmur at the right sternal border. ABDOMEN: Soft, nontender. EXTREMITIES: No edema on the right. Lymphedema on the left. CARDIAC MEDICATIONS: Furosemide 20 mg IV b.i.d., aspirin 81 mg p.o. daily, metoprolol tartrate 25 mg p.o. b.i.d. LABORATORY DATA: WBC 6.45, hemoglobin 8.4, hematocrit 26.8, platelets 446. Sodium 151, potassium 2.8, chloride 117, CO2 23, BUN 11, creatinine 0.83. INR 2.09. TELEMETRY: Personally reviewed and interpreted revealing normal sinus rhythm. IMPRESSION: 1. Chest pain. 2. Peripheral arterial disease. 3. Supraventricular tachycardia. 4. Lower extremity wound. 5. Coronary artery disease status post coronary artery bypass grafting. 6. Elevated BNP. 7. History of cerebrovascular accident with hemiplegia and aphasia. 8. History of deep vein thrombosis on anticoagulation. 9. Hypertension. 10. Hyperlipidemia. RECOMMENDATIONS: Given patient's debility, the patient is a poor candidate for invasive procedures. Recommend medical therapy. Continue aspirin. Continue IV Lasix. Creatinine has been stable, but the patient appears to need more free water. Check BNP. The patient's blood pressure is controlled. Continue current cardiac medications. INR has come down. Continue to hold warfarin. Recommend discussing goals of care with the patient's family. Thank you for this consult. We will continue to follow. Precious Holley MD ABS/MODL /[id number]
[2019-12-29 20:00] VITALS: BP 110/58
--- NOTE | 2019-12-29 20:16 | NUR ---
12.27. GAVE OK TO DRAW VNC TROUGH TO RECHECK FROM LAST READING; PATIENT'S VANC IS ON HOLD SINCE 12/24/19
[2019-12-29] MEDS: PRAVASTATIN 20 MG TAB PO SCH (23:52)
[2019-12-30] VITALS (9 sets, daily range): BP systolic 108–147; BP diastolic 56–81
[2019-12-30 06:43] LABS: BASOPHILS % 0.1 % (0.0-1.0); EOSINOPHILS % 0.5 % (0.0-6.0); HEMOGLOBIN 8.9 g/dL (12.0-16.0); LYMPHOCYTES % 13.6 % (18.0-39.1); MEAN CORPUSCULAR HGB CONC 30.7 g/dL (31-35); MEAN CORPUSCULAR VOLUME 87.9 fL (81-99); MONOCYTES # (AUTO) 0.8 (0.2-0.8); MONOCYTES % 10.4 % (4.4-11.3); NEUTROPHILS # (AUTO) 5.6 (2.1-6.9); NEUTROPHILS % 74.7 % (38.7-80.0); PLATELET COUNT 271 x10e3/uL (140-360); RED CELL DISTRIBUTION WIDTH 18.4 % (11.7-14.4)
[2019-12-30 07:03] LABS: ALANINE AMINOTRANSFERASE 28 IU/L (0-55); ALBUMIN 1.8 g/dL (3.5-5.0); ALBUMIN/GLOBULIN RATIO 0.5 (0.8-2.0); ALKALINE PHOSPHATASE 143 IU/L (40-150); ANION GAP 12.6 mmol/L (8-16); BLOOD UREA NITROGEN 11 mg/dL (7-26); BUN/CREATININE RATIO 12 (6-25); CALCIUM 7.8 mg/dL (8.4-10.2); CARBON DIOXIDE 26 mmol/L (22-29); CHLORIDE 119 mmol/L (98-107); CREATININE, SERUM 0.89 mg/dL (0.57-1.11); EST GLOMERULAR FILTRATION RATE > 60 ML/MIN (60-); GLUCOSE 80 mg/dL (74-118); POTASSIUM 3.6 mmol/L (3.5-5.1); SODIUM 154 mmol/L (136-145)
[2019-12-30] MEDS: METOPROLOL TARTRATE 25 MG TAB PO SCH ×2 (09:00→17:00)
[2019-12-30] MEDS: FUROSEMIDE INJ 10 MG/ML 4 ML VIAL IV SCH ×2 (09:00→17:00)
[2019-12-30] MEDS: FAMOTIDINE 20 MG TAB PO SCH (09:00)
[2019-12-30] MEDS: POVIDONE IODINE 10% 120 ML BTL EXT SCH (09:00)
[2019-12-30] MEDS: POTASSIUM CHLORIDE 10MEQ EA PO SCH (09:00)
[2019-12-30] MEDS: ASPIRIN 81 MG ENTERIC COATED PO SCH (09:00)
[2019-12-30] MEDS: BALSAM PERU/CASTOR OIL 60 GM OINT...G. TP SCH (09:00)
--- NOTE | 2019-12-30 09:48 | NUR ---
Spoke to pt's son Jax Tobin [phone] regarding dc plan. He states he wants to take his mom back home with her current home health company - [email or web address], . He does not want her going to any facilities.
[2019-12-30 12:15] LABS: BAND NEUTROPHILS % (MANUAL) 1 %; EOSINOPHILS % (MANUAL) 2 % (0-7); LYMPHOCYTES % (MANUAL) 5 % (19-48); METAMYELOCYTES % (MANUAL) 1 % (0-0); MONOCYTES % (MANUAL) 7 % (3.4-9.0); NEUTROPHILS % (MANUAL) 84 % (40-74); NUCLEATED RED BLOOD CELLS 2
[2019-12-30 12:16] LABS: SCHISTOCYTES FEW
[2019-12-30 12:17] LABS: ANISOCYTOSIS MODERATE; OVALOCYTES FEW; PLATELET ESTIMATE ADEQUATE; PLATELET MORPHOLOGY COMMENT FEW EDTA CLUMPING; POLYCHROMASIA FEW; RBC MORPHOLOGY COMMENT ABNORMAL
--- NOTE | 2019-12-30 12:50 | Progress Note ---
DATE: 12/30/2019 Cardiology Progress Note SUBJECTIVE: History is limited due to patient's aphasia. OBJECTIVE: VITAL SIGNS: Temperature 98.5 degrees, pulse 80, respiratory rate 16, blood pressure 134/60, oxygen saturation 100% on room air. GENERAL: Chronically ill-appearing woman, no acute distress, awake. LUNGS: Clear to auscultation bilaterally. No wheezes or crackles. CARDIOVASCULAR: Normal rate, regular rhythm. Systolic murmur at the right sternal border. ABDOMEN: Soft, nontender. EXTREMITIES: No edema on the right, lymphedema on the left. CARDIAC MEDICATIONS: Furosemide 20 mg IV b.i.d., aspirin 81 mg p.o. daily, metoprolol tartrate 25 mg p.o. b.i.d. LABORATORY DATA: WBC 7.51, hemoglobin 8.9, hematocrit 29, platelets 271. Sodium 154, potassium 3.6, chloride 119, CO2 of 26, BUN 11, creatinine 0.89. TELEMETRY: Personally reviewed and interpreted, revealing normal sinus rhythm. IMPRESSION: 1. Chest pain. 2. Peripheral arterial disease. 3. Supraventricular tachycardia. 4. Lower extremity wound. 5. Coronary artery disease status post coronary artery bypass grafting. 6. Elevated BNP. 7. History of cerebrovascular accident with hemiplegia and aphasia. 8. History of deep vein thrombosis on anticoagulation. 9. Hypertension. 10. Hyperlipidemia. RECOMMENDATIONS: Given patient's debility, the patient is a poor candidate for invasive procedures. Recommend medical therapy. Continue aspirin. Continue IV Lasix. Creatinine has been stable, but patient appears to be more free water given her hypernatremia. BNP remains elevated. The patient's blood pressure is controlled. Continue current cardiac medication. Recommend discussing goals of care with the patient's family. In addition, we will need to clarify timing of her lower extremity DVT to determine if the patient needs to resume anticoagulation as the patient's INR was supratherapeutic on admission. Thank you for this consult. We will continue to follow. Precious Holley MD ABS/MODL /[id number]
--- NOTE | 2019-12-30 19:20 | NUR ---
ASSUME CARE OF PATIENT, PATIENT SEEN LYING IN BED, EYES OPEN, NON-VERBAL, NO DISTRESS NOTED, SKIN WARM DRY, LEFT LEG SWOLLEN +3 ENTIRE LEG FROM THIGH TO FOOT, PEDAL PULSES WEAK BUT PALPABLE, SKIN WARM DRY, REPOSITIONED FOR COMFORT ON LEFT SIDE, PATIENT ATTEMPTING TO SWAT AT ME DURING ASSESSMENT, MIDLINE LEFT UPPER ARM NOTED, DRESSING NOT INTACT, CHG PATCH MILKY WHITE WITH PINKISH BLOOD NOTED,
--- NOTE | 2019-12-30 19:20 | NUR ---
PT RESTING ON BED BED SIDE REPORT GIVEN TO ONCOMING NURSE
[2019-12-30] MEDS: PRAVASTATIN 20 MG TAB PO SCH (21:23)
[2019-12-30] MEDS: CEFTRIAXONE SOD 1 GM/NS 50 ML 50 ML IV SCH (23:30)
[2019-12-31] VITALS (7 sets, daily range): BP systolic 121–141; BP diastolic 54–76
[2019-12-31] MEDS ORDERED: DEXTROSE 5% 500 ML IV ONE (05:15)
--- NOTE | 2019-12-31 06:07 | Progress Note ---
DATE: 12/31/2019 SUBJECTIVE: The patient did well overnight. No new issues. OBJECTIVE: VITAL SIGNS: Temperature 97.5, pulse 78, blood pressure 125/67, sats 93% on room air. GENERAL: No apparent distress, lying in bed. CARDIOVASCULAR: Regular rate and rhythm. LUNGS: Clear to auscultation bilaterally. ABDOMEN: Good bowel sounds. Soft, nontender. EXTREMITIES: No clubbing or cyanosis. NEUROLOGICAL: Moves all extremities x4, but has obvious weakness on the right side from her previous CVA. ASSESSMENT AND PLAN: 1. Sepsis secondary to cellulitis. Continue with antibiotics. 2. Anemia. Check a CBC. 3. Hypernatremia, unfortunately is getting worse due to the patient's poor p.o. intake of free water, so we will give her a bolus of D5W to see if improves. 4. History of cerebrovascular accident. We will check her INR. 5. Hypertension. Continue with her medication. 6. Hyperlipidemia. Continue with her pravastatin. 7. Disposition. Family does not want the patient to go to halfway facility, so she will be going back to home, so we will try to start setting up home antibiotics and wound care for possible discharge on Friday. Please see hospital chart for full details. MD JENNYFER Will/MIRIAM /[id number]
[2019-12-31 06:31] LABS: BASOPHILS % 0.2 % (0.0-1.0); EOSINOPHILS # (AUTO) 0.1 (0.0-0.4); EOSINOPHILS % 0.8 % (0.0-6.0); HEMATOCRIT 27.5 % (34.2-44.1); HEMOGLOBIN 8.5 g/dL (12.0-16.0); LYMPHOCYTES # (AUTO) 1.4 (1.0-3.2); LYMPHOCYTES % 15.6 % (18.0-39.1); MEAN CORPUSCULAR HEMOGLOBIN 27.1 pg (28-32); MEAN CORPUSCULAR HGB CONC 30.9 g/dL (31-35); MEAN CORPUSCULAR VOLUME 87.6 fL (81-99); MONOCYTES # (AUTO) 1.3 (0.2-0.8); MONOCYTES % 14.7 % (4.4-11.3); NEUTROPHILS # (AUTO) 5.9 (2.1-6.9); NEUTROPHILS % 67.6 % (38.7-80.0); PLATELET COUNT 334 x10e3/uL (140-360); RED BLOOD COUNT 3.14 x10e6/uL (3.6-5.1); RED CELL DISTRIBUTION WIDTH 18.1 % (11.7-14.4)
[2019-12-31 06:53] LABS: ALANINE AMINOTRANSFERASE 29 IU/L (0-55); ALBUMIN 1.7 g/dL (3.5-5.0); ALBUMIN/GLOBULIN RATIO 0.5 (0.8-2.0); ALKALINE PHOSPHATASE 139 IU/L (40-150); ANION GAP 11.9 mmol/L (8-16); BLOOD UREA NITROGEN 13 mg/dL (7-26); BUN/CREATININE RATIO 13 (6-25); CALCIUM 7.7 mg/dL (8.4-10.2); CARBON DIOXIDE 28 mmol/L (22-29); CHLORIDE 118 mmol/L (98-107); CREATININE, SERUM 0.99 mg/dL (0.57-1.11); EST GLOMERULAR FILTRATION RATE > 60 ML/MIN (60-); GLUCOSE 93 mg/dL (74-118); SODIUM 155 mmol/L (136-145)
[2019-12-31 07:05] LABS: POTASSIUM 2.9 mmol/L (3.5-5.1)
[2019-12-31 07:06] LABS: INR 1.64; PROTHROMBIN TIME 20.6 seconds (11.9-14.5)
[2019-12-31 07:49] LABS: BAND NEUTROPHILS % (MANUAL) 1 %; LYMPHOCYTES % (MANUAL) 5 % (19-48); MONOCYTES % (MANUAL) 11 % (3.4-9.0); MYELOCYTES % (MANUAL) 2 % (0-0); NEUTROPHILS % (MANUAL) 81 % (40-74)
[2019-12-31 07:51] LABS: ANISOCYTOSIS MODERATE
[2019-12-31 07:53] LABS: PLATELET ESTIMATE ADEQUATE; PLATELET MORPHOLOGY COMMENT NORMAL; POIKILOCYTOSIS SLIGHT; RBC MORPHOLOGY COMMENT ABNORMAL
[2019-12-31] MEDS: FUROSEMIDE INJ 10 MG/ML 4 ML VIAL IV SCH ×3 (08:55→18:16)
[2019-12-31] MEDS: POVIDONE IODINE 10% 120 ML BTL EXT SCH (08:55)
[2019-12-31] MEDS ORDERED: POTASSIUM CHLORIDE 20 MEQ TAB CR PO ONE ×2 (08:55→12:55)
[2019-12-31] MEDS: POTASSIUM CHLORIDE 10MEQ EA PO SCH (08:56)
[2019-12-31] MEDS: ASPIRIN 81 MG ENTERIC COATED PO SCH (08:57)
[2019-12-31] MEDS: BALSAM PERU/CASTOR OIL 60 GM OINT...G. TP SCH (08:57)
[2019-12-31] MEDS: FAMOTIDINE 20 MG TAB PO SCH (08:57)
[2019-12-31] MEDS: METOPROLOL TARTRATE 25 MG TAB PO SCH ×2 (08:57→18:16)
--- NOTE | 2019-12-31 09:00 | NUR ---
0900 LEFT PICC LINE LOOKS LIKE IT COMING OUT, X RAY ORDERED, CHARGE NURSE NOTIFIED
--- NOTE | 2019-12-31 10:38 | Diagnostic Imaging Report ---
EXAMINATION: CHEST SINGLE (PORTABLE) INDICATION: Line placed COMPARISON: Chest radiograph 11/04/2019 FINDINGS: LINES/TUBES:No central line is visualized. Upon further assessment of the medical record, the line placed was a midline which would typically not be visible on chest radiograph. LUNGS:The lungs are well inflated. There is perihilar fullness and indistinctness of the pulmonary vasculature. PLEURA:No pleural effusion or pneumothorax. MEDIASTINUM:Cardiomediastinal silhouette is stably enlarged. Atherosclerotic calcifications of the thoracic aorta. BONES/SOFT TISSUES:No acute osseous injury. ABDOMEN:No free air under the diaphragm. IMPRESSION: Central line not visualized. Upon further investigation of the medical record, the line placed was a midline which would typically not be visible on chest radiograph. Unchanged mild cardiomegaly and mild pulmonary interstitial edema. Signed by: Emma Llanos MD on 12/31/2019 10:35 AM
--- NOTE | 2019-12-31 10:59 | NUR ---
Reached out to Dr. Varela regarding home abx for pt. He states will try to dc on oral abx. Anticipate dc on Friday, per Dr. Varela's note.
--- NOTE | 2019-12-31 13:33 | Progress Note ---
DATE: 12/31/2019 Cardiology Progress Note SUBJECTIVE: The patient denies chest pain or shortness of breath. OBJECTIVE: VITAL SIGNS: Temperature 97 degrees, pulse 76 respiratory rate 16, blood pressure 123/76, oxygen saturation 94%. GENERAL: Chronically ill-appearing woman, in no acute distress, awake. LUNGS: Clear to auscultation bilaterally. No wheezes or crackles. CARDIOVASCULAR: Normal rate. Regular rhythm. Systolic murmur at the right sternal border. ABDOMEN: Soft and nontender. EXTREMITIES: No edema on the right, lymphedema on the left. CARDIAC MEDICATIONS: 1. Metoprolol tartrate 25 mg p.o. b.i.d. 2. Furosemide 20 mg IV b.i.d. 3. Aspirin 81 mg p.o. daily. LABORATORY DATA: WBC 8.76, hemoglobin 8.5, hematocrit 27.5, platelets 334. Sodium 135, potassium 2.9, chloride 118, CO2 of 28, BUN 13, and creatinine 0.99. TELEMETRY: Personally reviewed and interpreted revealing normal sinus rhythm. IMPRESSION: 1. Chest pain. 2. Peripheral arterial disease. 3. Supraventricular tachycardia. 4. Lower extremity wound. 5. Coronary artery disease, status post. 6. coronary artery bypass grafting. 7. Elevated BNP. 8. History of cerebrovascular accident with hemiplegia and aphasia. 9. History of deep venous thrombosis, on anticoagulation. 10. Hypertension. 11. Hyperlipidemia. 12. Hypernatremia. RECOMMENDATIONS: Given the patient's debility, the patient is a poor candidate for invasive procedures. Recommend medical therapy. Continue aspirin. Continue IV Lasix. Creatinine has been stable, but the patient's sodium continue to climb. Recommend additional free water as the patient's p.o. intake is inadequate. The patient's blood pressure is controlled. Continue current cardiac medications. Recommend discussing goals of care with the patient's family. In addition, we need to clarify the timing of her lower extremity DVT to determine if the patient needs to resume anticoagulation as the patient's INR was supratherapeutic on admission and it took several days to drop back into the therapeutic range. Given the patient's poor p.o. intake, she is not a good candidate for warfarin therapy at this time. Consider Eliquis or Xarelto as an alternative if the patient's lower extremity DVT was within the last 3 months. Thank you for this consult. We will continue to follow. MD DENA Norwood/MIRIAM /[id number]
--- NOTE | 2019-12-31 14:15 | NUR ---
Visit made by Mallory Adan. [employer] provided pastoral presence, prayer, and hospitality. MITCHEL Ste[facility] O: [phone]
--- NOTE | 2019-12-31 14:30 | NUR ---
1430 CLAUDIA AT DIT AT BS, ASSESSED MIDLINE IV ACCESS, FLUSHES WELL, OK TO USE
--- NOTE | 2019-12-31 16:15 | NUR ---
1615 DR MAHARAJ AT REMOVED JUAN M FROM PREVIOUS SURGICAL INCISION, PT TOLERATED WELL
--- NOTE | 2019-12-31 16:42 | NUR ---
Nutrition Intervention Note RD Recommendation(s) for Physician: - Continue current diet as ordered. Recommend adding chopped meats 2/2 poor dentition - Recommend Ensure Enlive TID for added nutrition - Recommend MVI with minerals once daily, Vitamin C, and Zinc Sulfate for wound healing - Recommend Todd 1 packet BID to promote wound healing Pt meets criteria for moderate protein calorie malnutrition Plan of Care: RD following, monitoring for tolerance and adequacy, ONS, vitamin, and mineral rec's Nutrition reason for involvement: follow up RD Assessment 12/30: Follow up. Pt continues with poor intake. It is noted in chart that pt has been consuming 0-50% of meals. Recommend Ensure Enlive TID for added nutrition and Todd BID for wound healing. Provided recommendation to RN. Will continue to monitor. 12/26: Follow up. Pt sitting up in bed at time of visit, pt non-verbal and nods to any question asked, unable to determine comprehension. Noted very little intake of breakfast and lunch trays at bedside. Per RN pt refused breakfast this am and noted 0-25% meal intake per chart. Per MD notes pt is a poor candidate for invasive interventions and pending discussion with family regarding goals of care. Chart reviewed. Will continue to monitor. 12/21: 84 YOF admitted for lymphedema and PAD known from prior admission. 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 Poor intake during and prior to admit noted per documentation. Pt with dementia and aphasia, unable to obtain additional hx at this time. Per prior admit pt with poor dentition, family would chop foods at home, and no reported difficulties swallowing. Pt with multiple wounds on admit. Rec's provided to promote wound healing. Chart reviewed. Will continue to monitor. Principal Problems/Diagnoses: lymphedema, PAD PMH: Hypertension, dementia, reflux disease, hyperlipidemia, and DVT GI: abdomen non-tender, LBM 12/29 Skin: sacral stage III PU, R buttock stage II, L heel no staging- black Labs: 12/30: Na 155, K 2.9, BUN 13, Cr 0.99, Ca 7.7 12/26: Na 149, K 3.4, BUN 10 Cr. 0.73, Gluc 62 12/21: Na 142, K 2.7, BUN 9, Cr 0.54, Gluc 68, Ca 6.1, Mg 1.5 Meds: metoprolol, pepcid, lasix, zofran Ht: 65in per prior admit, currently listed as 70 in Wt: 147 (12/30) 161 lb (12/21) 141 lbs (12/02) 142lb (11/25) BMI: 21.1 kg/m2 IBW: 125lb +/- 10% Malnutrition Evaluation (12/27/19) The patient meets criteria for MODERATE protein-calorie malnutrition. Energy intake: <50% of estimated energy requirements for >5 days Weight loss: No wt loss Fat loss: None, ample tricep skinfold thickness Muscle loss: Moderate, shoulder square Supporting Evidence: Fluid accumulation: none observed Functional Status: not assessed Nutrition Prescription (Diet Order): Cardiac, GI soft. pureed Estimated Nutritional Needs: Calories: 1410 1602 kcal (22-25kcal/kg/d) Weight used : CBW- prior admit wt used 2/2 +2 edema Protein : 77 96g (1.2-1.5g/kg/d) Weight used: CBW Diet Adequacy: Not meeting calorie needs, Not meeting protein needs Tolerance: Tolerating po Diet Education Needs Assessment: Diet education not indicated. Nutrition Care Level: moderate Nutrition Diagnosis: Increased nutrient needs (protein, vitamins, minerals) related to skin integrity as evidenced by multiple wounds on admit Goal: Patient will meet 75-100% of estimated needs by follow up Progress: not progressing Interventions: Modified diet, Commercial beverage, vitamin and mineral supplementation, recommend modifications Monitoring/Evaluation: Total energy intake, Total protein intake, Modified diet, Liquid supplement, Weight change Signed: Netta Staley RD, LD
--- NOTE | 2019-12-31 19:33 | NUR ---
Received bedside report from day nurse. Patient awake and resting in bed, no s/s of distress at this time. Bed locked and in low position, side rails up x3, alarm on, call light placed within reach. All safety measures in place. Will continue to monitor.
--- NOTE | 2019-12-31 19:43 | Progress Note ---
DATE: 12/31/2019 The patient is seen today in followup of the I and D and debridement of the wound on the left foot. The area is following normal course of healing. At this point, there is no new infection. Decrease in redness, swelling, and drainage. Needs to continue with Betadine wet-to-dry dressings and follow up on an outpatient basis in approximately 4 weeks. Apparently, she is scheduled for a probable discharge home on Friday. Follow up in my office in 4 weeks. ANAND Hunter/MIRIAM /[id number]
[2019-12-31] MEDS: PRAVASTATIN 20 MG TAB PO SCH (21:35)
[2020-01-01] VITALS (8 sets, daily range): BP systolic 125–155; BP diastolic 63–79
[2020-01-01] MEDS: BALSAM PERU/CASTOR OIL 60 GM OINT...G. TP SCH (05:24)
[2020-01-01] MEDS: POVIDONE IODINE 10% 120 ML BTL EXT SCH (05:24)
--- NOTE | 2020-01-01 05:24 | NUR ---
Wound care performed to left foot and sacral/buttock wound as ordered.
--- NOTE | 2020-01-01 07:07 | NUR ---
Bedside report given to day nurse. Patient awake and resting in bed, no s/s of distress at this time. All safety measures in place.
[2020-01-01 08:26] LABS: BLOOD UREA NITROGEN 14 mg/dL (7-26); BUN/CREATININE RATIO 14 (6-25); CARBON DIOXIDE 25 mmol/L (22-29); CHLORIDE 118 mmol/L (98-107); CREATININE, SERUM 1.02 mg/dL (0.57-1.11); EST GLOMERULAR FILTRATION RATE > 60 ML/MIN (60-); GLUCOSE 78 mg/dL (74-118); SODIUM 157 mmol/L (136-145)
[2020-01-01] MEDS: POTASSIUM CHLORIDE 10MEQ EA PO SCH (09:00)
[2020-01-01] MEDS ORDERED: POTASSIUM CHLORIDE 10MEQ/100ML 100 ML IV ONE (09:30)
[2020-01-01] MEDS ORDERED: POTASSIUM CHLORIDE 20MEQ/100ML 200 ML IV ONE (09:45)
[2020-01-01] MEDS: METOPROLOL TARTRATE 25 MG TAB PO SCH ×2 (09:53→16:51)
[2020-01-01] MEDS: ASPIRIN 81 MG ENTERIC COATED PO SCH (09:53)
[2020-01-01] MEDS: FAMOTIDINE 20 MG TAB PO SCH (09:53)
--- NOTE | 2020-01-01 10:56 | Progress Note ---
DATE: 01/01/2020 Cardiology Progress Note SUBJECTIVE: The patient is not able to verbalize much, but she denies any discomfort by nodding no. OBJECTIVE: VITAL SIGNS: Temperature 97.4, pulse 87, respiratory rate 16, blood pressure 155/65, oxygen saturation 96% on room air. GENERAL: Awake and alert. Resting in bed. Does not appear to be in any acute distress. NECK: Supple. No JVD noted. LUNGS: Clear to auscultation throughout. No wheezing, no rhonchi or crackles. CARDIOVASCULAR: 3/6 systolic murmur noted. Normal rate and rhythm. ABDOMEN: Soft and nontender. EXTREMITIES: Lower extremity 3+ pitting edema. Left lower extremity with a wound covered with dressing. CARDIOVASCULAR MEDICATION: Metoprolol 25 mg p.o. b.i.d., furosemide 20 mg IV b.i.d., and aspirin 81 mg p.o. daily. LABORATORY DATA: Sodium 157, potassium 3.0, BUN 14, creatinine 1.02, calcium 8.0. TELEMETRY: Sinus rhythm with a bundle branch block. IMPRESSION: 1. Chest pain. 2. Peripheral arterial disease. 3. Supraventricular tachycardia. 4. Lower left extremity wound. 5. Cardiovascular disease status post coronary artery bypass grafting. 6. Elevated BNP. 7. History of cardiovascular accident with hemiplegia and aphasia. 8. History of DVT. 9. Hypertension. 10. Hyperlipidemia. 11. Hyponatremia. RECOMMENDATION: Given this patient's debility, the patient is a poor candidate for invasive procedures. At this time, we recommend medical therapy. Continue the above-listed cardiac medications. Given the sodium continues to rise, recommendation of free water as patient p.o. intake is quite inadequate. Monitor dehydration. Monitor blood pressure closely. Recommend discussing goals of care with the patient's family. In addition, we will need to clarify the timing of the lower extremity DVT and if there is any, to resume anticoagulation as the patient's INR was supratherapeutic on admission, and it took several days to cross down to therapeutic range. Given the patient's poor p.o. intake, she is not a good candidate for warfarin therapy at this time. We will consider Eliquis or Xarelto as an alternative, if the patient's lower extremity DVT is within the last three months. We will continue to follow this patient and thank you for allowing us to participate in her care. Dictated by Diamond Benítez, TECHNICAL ASSISTANT MD DONNA Carter/MIRIAM /[id number]
[2020-01-01] MEDS: FUROSEMIDE INJ 10 MG/ML 4 ML VIAL IV SCH (16:51)
[2020-01-01] MEDS: POTASSIUM CHLORIDE 20 MEQ TAB CR PO ONE ×2 (17:38→20:12)
--- NOTE | 2020-01-01 19:27 | NUR ---
Received bedside report from day nurse. Patient resting in bed, no s/s of distress at this time. All safety measures in place. Paged Dr. Kwan regarding possible orders to renew IV antibiotics. Awaiting return call at this time. Will continue to monitor.
--- NOTE | 2020-01-01 19:32 | NUR ---
Received return call from Dr. Kwan. Orders to continue IV Rocephin as previously ordered.
[2020-01-01] MEDS: PRAVASTATIN 20 MG TAB PO SCH (20:12)
[2020-01-01] MEDS: CEFTRIAXONE SOD 1 GM/NS 50 ML 50 ML IV SCH (20:12)
[2020-01-02] VITALS (8 sets, daily range): BP systolic 105–137; BP diastolic 56–84
[2020-01-02] MEDS: BALSAM PERU/CASTOR OIL 60 GM OINT...G. TP SCH (05:47)
[2020-01-02] MEDS: POVIDONE IODINE 10% 120 ML BTL EXT SCH (06:11)
[2020-01-02] MEDS ORDERED: POTASSIUM CHLORIDE 20 MEQ TAB CR PO STA (07:20)
[2020-01-02] MEDS ORDERED: DEXTROSE 5%/0.9% SOD CHL 1,000 ML IV ONE (07:30)
[2020-01-02] MEDS ORDERED: DEXTROSE 5% 1,000 ML IV ONE (08:30)
[2020-01-02] MEDS: FAMOTIDINE 20 MG TAB PO SCH (08:55)
[2020-01-02] MEDS: ASPIRIN 81 MG ENTERIC COATED PO SCH (08:55)
[2020-01-02] MEDS: FUROSEMIDE INJ 10 MG/ML 4 ML VIAL IV SCH ×2 (08:55→18:45)
[2020-01-02] MEDS: POTASSIUM CHLORIDE 10MEQ EA PO SCH (08:55)
[2020-01-02] MEDS: METOPROLOL TARTRATE 25 MG TAB PO SCH ×2 (09:00→17:13)
--- NOTE | 2020-01-02 09:29 | Progress Note ---
DATE: 01/02/2020 SUBJECTIVE: An 84-year-old female with cellulitis, status post debridement of the toe. The patient is doing well, alert and oriented x1, responds, has profound dementia. OBJECTIVE: VITAL SIGNS: Temperature is 97.3, pulse of 87, respirations of 18, blood pressure is 135/82, pulse oximetry of 96%. HEENT: Normocephalic and atraumatic. CVS: S1 and S2 are normal. Regular rate and rhythm. LUNGS: Clear to auscultation. No wheezing. ABDOMEN: Soft, nontender. EXTREMITIES: Left lower extremity lymphedema. LABORATORY VALUES: From yesterday, the ; sodium was 157, elevated, potassium of 3.0, carbon dioxide 118, BUN of 14, creatinine 1.02. ASSESSMENT: Ms. Bassett with: 1. Anemia. Continue to monitor the patient. 2. For the patient's chest pain. We will continue monitoring the patient again. 3. Hypernatremia. Poor p.o. intake. We will probably give her some D5 of 500 mL for hypernatremia. 4. History of cerebrovascular accident. Continue monitoring INR. 5. Hypertension and hyperlipidemia. Continue to monitor the patient. 6. Disposition. Continue monitoring and discharge depending on progression. MD BAUTISTA Alvarez/MODL /[id number]
--- NOTE | 2020-01-02 11:20 | Progress Note ---
DATE: 01/02/2020 Cardiology Progress Note SUBJECTIVE: The patient is not able to verbalize her complaints. However, she nods no to any problems. OBJECTIVE: VITAL SIGNS: Temperature 97.1, pulse 87, respiratory rate 16, blood pressure 109/56, and oxygen saturation 95% on room air. GENERAL: Awake, not able to verbalize or answer questions this morning. Appears to be not in acute distress. NECK: Supple. No JVD noted. LUNGS: Clear to auscultation throughout. No wheezing. No rhonchi or crackles. CARDIOVASCULAR: 3/6 systolic murmur noted. Normal rate and rhythm. ABDOMEN: Soft and nontender. EXTREMITIES: Lower extremity, 3+ pitting edema to left lower extremity with a wound in place covered with dressing. CARDIOVASCULAR MEDICATIONS: Lasix 20 mg IV b.i.d., aspirin 81 mg p.o. daily and metoprolol 5 mg q.4 hours p.r.n. LABORATORY DATA: No new labs today. TELEMETRY: Sinus rhythm with a bundle branch block. IMPRESSION: 1. Chest pain. 2. Peripheral arterial disease. 3. Supraventricular tachycardia. 4. Left lower extremity wound. 5. Cardiovascular disease, status post coronary artery bypass graft. 6. Elevated BNP. 7. History of cerebrovascular accident with hemiplegia and aphasia. 8. History of deep vein thrombosis. 9. Hypertension. 10. Hyperlipidemia. 11. Hypernatremia. RECOMMENDATIONS: Given this patient's debility and also poor p.o. intake and nutrition status, she is a poor candidate for invasive procedure and this time, we recommend just medical therapy. Continue the above-listed cardiac medications. Continue to hydrate with IV fluids. Monitor blood pressure closely. Discuss care goals with family, in addition we also need to clarify the timing of her lower extremity DVT and if there is any need to resume warfarin given that her INR was supratherapeutic on admission and it took several days to go down to therapeutic ranges. Depending on when that DVT occurred, we would recommend considering Eliquis or Xarelto as . We will continue to monitor this patient very closely. Dictated by Diamond Benítez, WILFREDO MD DONNA Carter/MIRIAM /[id number]
--- NOTE | 2020-01-02 16:30 | NUR ---
Midline looks like it leaked around the site and part of the catheter is out and looks like it is not in proper placement. It does not draw black blood. assistant shift supervisor RN reported unable being able to draw blood for AM labs from midline and also that both phlebotomists and RN could not draw blood peripherally. Myself and another nurse attempted to draw blood peripherally without success. Dr. Kwan was notified that AM labs have not been collected and about midline. Orders received for PICC line placement. PICC line nurse is already here in house, he said that the patient is not a candidate for a PICC line but he will see if he can fix or replace the midline.
--- NOTE | 2020-01-02 19:00 | NUR ---
Midline continues to leak and not draw blood after nurse has come out to fix. The PICC nurse reported that if midline continues to leak patient will not be eligible for another midline or PICC line and will need a central line placement. Called and notified Dr. Kwan about midline still leaking and not being able to draw blood from line to collect am labs. Orders received for central line placement tomorrow. freight rate clerk RN is aware of plan of care.
--- NOTE | 2020-01-02 20:06 | NUR ---
Recieved pt in bed, s/p midline repair. No s/sx of acute distress noted, pt open eyes spont. Bed in lowest position call light in reach. Will cont to mon
[2020-01-02] MEDS ORDERED: SODIUM CHLORIDE 0.9% 250ML 250 ML ONE (20:34)
[2020-01-02] MEDS: PRAVASTATIN 20 MG TAB PO SCH (20:42)
[2020-01-02] MEDS: CEFTRIAXONE SOD 1 GM/NS 50 ML 50 ML IV SCH (20:42)
[2020-01-03] VITALS: BP 121/58
[2020-01-03 04:00] VITALS: BP 126/76
[2020-01-03 05:14] LABS: BASOPHILS % 0.2 % (0.0-1.0); EOSINOPHILS # (AUTO) 0.1 (0.0-0.4); EOSINOPHILS % 0.9 % (0.0-6.0); LYMPHOCYTES % 9.5 % (18.0-39.1); MEAN CORPUSCULAR HEMOGLOBIN 27.4 pg (28-32); MEAN CORPUSCULAR VOLUME 88.4 fL (81-99); MONOCYTES # (AUTO) 0.9 (0.2-0.8); MONOCYTES % 7.8 % (4.4-11.3); NEUTROPHILS # (AUTO) 8.7 (2.1-6.9); NEUTROPHILS % 80.2 % (38.7-80.0); PLATELET COUNT 254 x10e3/uL (140-360); RED BLOOD COUNT 3.28 x10e6/uL (3.6-5.1); RED CELL DISTRIBUTION WIDTH 18.6 % (11.7-14.4)
[2020-01-03 05:53] LABS: POTASSIUM 3.2 mmol/L (3.5-5.1)
[2020-01-03 05:54] LABS: ALBUMIN 1.7 g/dL (3.5-5.0); ALBUMIN/GLOBULIN RATIO 0.5 (0.8-2.0); ANION GAP 12.2 mmol/L (8-16); CALCIUM 7.7 mg/dL (8.4-10.2); CREATININE, SERUM 1.05 mg/dL (0.57-1.11); MAGNESIUM 1.6 MG/DL (1.3-2.1)
--- NOTE | 2020-01-03 06:15 | NUR ---
Pt in bed awake, no s/sx acute distress, denies discomfort when asked. Pt changed and repositioned per staff, bed in lowest position and bed alarm is on.
[2020-01-03 07:30] VITALS: BP 118/53
--- NOTE | 2020-01-03 07:30 | NUR ---
PATIENT IN BED RESTING WITH NO S/S OF DISTRESS. SWELLING REMAINS TO LEFT FOOT; LEFT FOOT WOUND WITH DRESSING INTACT. BED IN LOWER POSITION AND LOCKED, CALL LIGHT AT REACH.
--- NOTE | 2020-01-03 07:33 | Progress Note ---
DATE: 01/03/2020 SUBJECTIVE: The patient did well overnight. No new complaints. SUBJECTIVE: VITAL SIGNS: Temperature 96.8, pulse 71, blood pressure 121/58, and sats 98% on room air. GENERAL: No apparent distress, lying in bed. CARDIOVASCULAR: Regular rate and rhythm. LUNGS: Clear to auscultation bilaterally. ABDOMEN: Good bowel sounds. Soft and nontender. EXTREMITIES: No clubbing or cyanosis. Left foot is wrapped. NEUROLOGIC: No new focal changes. ASSESSMENT AND PLAN: 1. Cellulitis of left lower extremity. We will continue antibiotics. We will consult Dr. Love to see if she needs IV antibiotics at home versus p.o. since family does not want to go to senior care facility. 2. Hypokalemia. We will check her potassium level. 3. Hypernatremia. We will once again check her CMP level after getting some increased p.o. fluid intake. 4. Anemia. We will check a CBC. 5. Hypertension. Continue with current care. 6. History of cerebrovascular accident. Continue with current care. 7. Hyperlipidemia. Continue with her medication. Please see hospital chart for full details. MD JENNYFER Will/MIRIAM /[id number]
[2020-01-03 07:36] VITALS: BP 118/53
[2020-01-03] MEDS: ASPIRIN 81 MG ENTERIC COATED PO SCH (09:08)
[2020-01-03] MEDS: POTASSIUM CHLORIDE 10MEQ EA PO SCH (09:08)
[2020-01-03] MEDS: FUROSEMIDE INJ 10 MG/ML 4 ML VIAL IV SCH ×2 (09:08→17:31)
[2020-01-03] MEDS: POVIDONE IODINE 10% 120 ML BTL EXT SCH (09:08)
[2020-01-03] MEDS: BALSAM PERU/CASTOR OIL 60 GM OINT...G. TP SCH (09:09)
[2020-01-03] MEDS: FAMOTIDINE 20 MG TAB PO SCH (09:09)
[2020-01-03] MEDS: METOPROLOL TARTRATE 25 MG TAB PO SCH ×2 (09:09→17:31)
--- NOTE | 2020-01-03 10:38 | NUR ---
INFECTIOUS DISEASE CONSULTATION CC: Left Foot ischemia CONSULTING MD: Avery HPI: This is a very pleasant 84 year old female with PMH of CVA with aphasia, CAD s/p CABG, and HFpEF. The patient presented with lower extremity wound and hypotension. The patient is noted to have severe PVD. PMH: Includes most significantly peripheral arterial disease and coronary artery disease. SOCIAL HISTORY: no current drug, alcohol use FAMILY HISTORY: non-contributory ROS: Aphasia with likely dementia, unable to assess all systems- denies pain PHYSICAL EXAM: VS: GENERAL: alert, chronically ill appearing HEENT: normocephalic, atraumatic CV: s1, s2, systolic murmur II, regular rate CHEST: diminished bilaterally ABD: soft, non-tender EXT: Left leg erythema, +2 pitting edema, diminished pulses NEURO: unable to assess PSYCH: unable to asess LABS: REVIEWED RADIOLOGY: REVIEWED STUDIES IMPRESSION: 1. Left foot wound s/p debridement 2. Cellulitis of LLE 3. Severe PVD 4. HLD 5. Anemia 6. HTN 7. Hypokalemia PLAN: 01/03/20 Foot examined, unlikely infection related. Patient has severe PVD and ischemia to the leg. Okay to discharge with oral Doxy 100 mg po BID and Cipro 500mg po QD . We will have her follow up in the office in 1 week, along with Dr. Humphries. THANK YOU FOR THE CONSULT! DISCUSSED WITH DR. NUNEZ
--- NOTE | 2020-01-03 11:09 | NUR ---
DR NUNEZ CRATE OPENER IN TO SEE PATIENT, ORDER RECEIVED TO CANCEL THE CENTRAL LINE.
[2020-01-03 11:15] VITALS: BP 119/73
--- NOTE | 2020-01-03 11:40 | NUR ---
PATIENT HAS NO IV ACCESS. OFFERED TO INSERT AN IV, BUT PATIENT REFUSED. MD AWARE, NO NEW ORDER RECEIVED. Addendum: 01/03/20 at 1142 by Jolly Flores RN WRONG PATIENT.
[2020-01-03] MEDS ORDERED: POTASSIUM CHLORIDE 20 MEQ TAB CR PO SCH (12:15)
--- NOTE | 2020-01-03 12:18 | NUR ---
Received order for wound care for home health. Home health order and clinical faxed to [facility] at [phone] / P [phone]. Spoke with Alberta at [facility] and informed her of dc for today. States they will review clinicals once they receive it and give CM a call back. CM called and spoke with pt's son Jax Tobin at [phone]. Discussed DC plan for today. Reminded him of medicare rights. He verbalized understanding. Signed copy of IMM placed in chart. Copy to pt's bedside.
[2020-01-03] MEDS ORDERED: SODIUM CHLORIDE 0.9% 1000ML 1,000 ML ONE (13:11)
[2020-01-03] MEDS ORDERED: POTASSIUM CHLORIDE 20MEQ/100ML 200 ML IV ONE (13:15)
--- NOTE | 2020-01-03 15:21 | NUR ---
PATIENT REFUSED PO POTASSIUM. NOTIFIED, NEW ORDER RECEIVED FOR IV POTASSIUM.
[2020-01-03 16:02] VITALS: BP 122/74
[2020-01-03] MEDS ORDERED: CIPRO500 MG PO (17:48)
[2020-01-03] MEDS ORDERED: DOXYCYCLINE HY100 MG PO (17:49)
--- NOTE | 2020-01-03 18:45 | NUR ---
PATIENT DISCHARGED HOME. DISCHARGE INSTRUCTIONS, PRESCRIPTIONS, AND FOLLOW UP GIVEN TO PATIENT AND DAUGHTER, THEY VERBALIZED UNDERSTANDING. LEFT UPPER ARM MIDLINE REMOVED WITH TIP INTACT. ALL PERSONAL ITEMS TAKEN WITH PATIENT. LEFT UNIT PER WHEEL CHAIR TO FRONT LOBBY IN STABLE CONDITION.
--- NOTE | 2020-01-04 09:06 | Progress Note ---
DATE: 01/01/2020 SUBJECTIVE: An 84-year-old female. The patient did very well overnight. No new issues have seen. The patient continues to be bedridden, demented. OBJECTIVE: VITAL SIGNS: Temperature is 98.1, pulse of 87, respirations of 17, blood pressure is 128/74, pulse oximetry of 93%. HEENT: Normocephalic and atraumatic. The patient is loosing teeth. CVS: S1 and S2 regular. Systolic murmur present. ABDOMEN: Soft and nontender. EXTREMITIES: Lymphedema on the left. Right side has trace edema present. LABORATORY VALUES: Done yesterday show a white count of 8.76, hemoglobin 8.5, hematocrit 27.5. Chemistries; yesterday's sodium of 155, potassium 2.9, BUN of 13, creatinine of 0.99, calcium of 7.7. Vancomycin trough dropped on was 8.3. MICROBIOLOGY: Blood cultures negative. IMAGING STUDIES: Done on show unchanged cardiomegaly and mild pulmonary interstitial edema. ASSESSMENT: Ms. Danyelle Colin with: 1. Lower extremity wound. 2. Coronary artery disease. 3. History of coronary artery bypass grafting. 4. History of cerebrovascular accident with hemiplegia. 5. Hypertension. 6. Hyperlipidemia. 7. Hypernatremia. 8. The patient also has a wound in the left foot, status post debridement by Dr. Aguilar. PLAN: Would be to continue to monitor the patient, may have to increase her free fluids to increase her sodium, but has to be done in a very systematic manner secondary to her volume overload. We will encourage the patient to increase p.o. water intake. She has a history of DVT. We will continue to monitor the patient and to consider Eliquis and Xarelto. Continue to monitor the patient's fluid intake and also her vitals and also telemonitoring. Further recommendation per clinical course. We will continue to monitor the patient. Disposition as per Dr. Stockton recommendations. MD BAUTISTA Alvarez/BERTAL /[id number]
--- NOTE | 2020-01-08 11:23 | Discharge Summary ---
DISCHARGE DIAGNOSIS: Left foot cellulitis, status post incision and drainage. HISTORY OF PRESENT ILLNESS AND HOSPITAL COURSE: See hospital chart for full details. The patient is an elderly lady with history of CVA with some permanent neurological deficits, who presented with left foot cellulitis and peripheral arterial disease changes. She was seen by Cardiology as well as Dr. Aguilar, Podiatry, who did an I and D, where the foot did improve with the IV antibiotics. I did have discussions with the family members, they did not want her to go to the correction facility with IV antibiotics, though she was discharged home with p.o. antibiotics as well as wound care. I am, however, leery that this will be very successful, but per the family wishes, the patient was discharged home in good condition per their wishes and continue with p.o. antibiotics and follow up with her primary care physician in 1 to 2 weeks. Please see hospital chart for full details. MD JENNYFER Will/MIRIAM /[id number]
== END 2020-01-03 18:34 | disposition home health service (06) | DRG 299 ==
LOC: ER 15:26 → ERHOLD 18:31 → MED/SURG3 19:57 → OBSVTOIN 12-23 15:02 → MED/SURG2 12-24 16:17
PROVIDERS: ADMIT Internal Medicine; ATTEND Internal Medicine
PROC: 05HY33Z Insertion of Infusion Device into Upper Vein, Percutaneous Approach (ICD-10-PCS; 2019-12-23)
PROC: 0HBNXZZ Excision of Left Foot Skin, External Approach (ICD-10-PCS; principal; 2019-12-27)
PROC: 05HY33Z Insertion of Infusion Device into Upper Vein, Percutaneous Approach (ICD-10-PCS; 2020-01-02)
DX: I70.212 Atherosclerosis of native arteries of extremities with intermittent claudication, left leg (principal); I50.33 Acute on chronic diastolic (congestive) heart failure; L03.116 Cellulitis of left lower limb; E44.0 Moderate protein-calorie malnutrition; Z68.1 Body mass index [BMI] 19.9 or less, adult; I69.359 Hemiplegia and hemiparesis following cerebral infarction affecting unspecified side; E87.0 Hyperosmolality and hypernatremia; D68.9 Coagulation defect, unspecified; E87.6 Hypokalemia; I69.398 Other sequelae of cerebral infarction; I25.10 Atherosclerotic heart disease of native coronary artery without angina pectoris; Z86.718 Personal history of other venous thrombosis and embolism; Z79.01 Long term (current) use of anticoagulants; Z95.1 Presence of aortocoronary bypass graft; I99.8 Other disorder of circulatory system; I70.292 Other atherosclerosis of native arteries of extremities, left leg; I69.320 Aphasia following cerebral infarction; I11.0 Hypertensive heart disease with heart failure; F03.90 Unspecified dementia, unspecified severity, without behavioral disturbance, psychotic disturbance, mood disturbance, and anxiety
CPT/HCPCS: 36415; 36568; 36569; 71045; 74470; 80048; 80053; 80202; 82550; 82553; 83036; 83735; 83880; 84443; 84484; 85025; 85610; 87040; 93005; 93041; 93925; 96365; 97139; 99251; 99284; G0378; J0610; J0696; J1940; J3370; J3430; J3480; J7030; J7040; J7042; J7050; J7070; J7799; Q0162

== ENCOUNTER → 2020-01-17 | Emergency (ER) | payer MEDICARE, OTHER ==
[~2020-01-17] VITALS: Ht 330.2 cm; Wt 61.2 kg
[~2020-01-17] MED LIST changes: +ASPIRIN 81 MG CHEW TAB PO ONE; +CEFEPIME 1GM/NS 0.9% 50 ML 50 ML IV ONE; +CEFEPIME HCL 1 GM VIAL IV SCH; +CIPRO500 MG PO; +DOXYCYCLINE HY100 MG PO; +NOREPINEPHRINE INJ 4MG/4ML 8 MG in DEXTROSE 5% 250ML 250 ML IV SCH; +PHYTONADIONE 10 MG/ML AMP SQ ONE; +SODIUM CHLORIDE 0.9% 1000ML 1,000 ML IV STA; +SODIUM CHLORIDE 0.9% 1000ML 2,000 ML ONE; +SODIUM CHLORIDE 0.9% 250ML 250 ML IV ONE
--- NOTE | 2020-01-17 14:34 | Diagnostic Imaging Report ---
EXAM: CHEST SINGLE (PORTABLE) DATE: 01/17/2020 1:40 PM INDICATION: Altered mental status COMPARISON: 12/31/2019 FINDINGS/IMPRESSION: The patient is significantly rotated limiting evaluation. Postsurgical changes from prior median sternotomy again noted. Allowing for limitations for rotation, there is no evidence for large focal consolidation, pneumothorax, or significant pleural effusion. The cardiomediastinal silhouette is grossly stable in appearance. No acute osseous abnormality is appreciated. Signed by: Dr. Kedar Lutz MD on 01/17/2020 2:30 PM
[2020-01-17 16:17] LABS: BASOPHILS % 0.1 % (0.0-1.0); EOSINOPHILS % 0.1 % (0.0-6.0); LYMPHOCYTES # (AUTO) 0.8 (1.0-3.2); LYMPHOCYTES % 11.7 % (18.0-39.1); MEAN CORPUSCULAR HEMOGLOBIN 26.3 pg (28-32); MEAN CORPUSCULAR HGB CONC 29.5 g/dL (31-35); MEAN CORPUSCULAR VOLUME 89.1 fL (81-99); MONOCYTES # (AUTO) 0.5 (0.2-0.8); MONOCYTES % 6.6 % (4.4-11.3); NEUTROPHILS # (AUTO) 5.5 (2.1-6.9); NEUTROPHILS % 79.9 % (38.7-80.0); PLATELET COUNT 337 x10e3/uL (140-360); RED BLOOD COUNT 2.47 x10e6/uL (3.6-5.1); RED CELL DISTRIBUTION WIDTH 21.1 % (11.7-14.4)
[2020-01-17 16:18] LABS: HEMOGLOBIN 6.5 g/dL (12.0-16.0)
[2020-01-17 16:50] LABS: PROTHROMBIN TIME > 120.0 seconds (11.9-14.5)
[2020-01-17 16:51] LABS: INR 0
[2020-01-17 17:41] LABS: ALBUMIN 1.3 g/dL (3.5-5.0); ALBUMIN/GLOBULIN RATIO 0.4 (0.8-2.0); ANION GAP 21.7 mmol/L (8-16); CALCIUM 7.8 mg/dL (8.4-10.2); CREATININE, SERUM 1.75 mg/dL (0.57-1.11); POTASSIUM 3.7 mmol/L (3.5-5.1)
[2020-01-17 17:49] LABS: CREATINE KINASE MB 3.7 ng/mL (0-5.0)
[2020-01-17 17:50] LABS: CLARITY,URINE SL CLOUDY (CLEAR); COLOR,URINE YELLOW (YELLOW)
--- NOTE | 2020-01-17 17:51 | NUR ---
calling [facility] transfer center for ICU bed and transfer. spoke to [employer] for transfer.
[2020-01-17 17:52] LABS: BILIRUBIN,URINE SMALL (NEGATIVE); KETONES,URINE NEGATIVE (NEGATIVE); LEUKOCYTE ESTERASE ,URINE TRACE (NEGATIVE); NITRITE,URINE NEGATIVE (NEGATIVE); PROTEIN,URINE DIPSTICK 1+ (NEGATIVE); URINE UROBILINOGEN 0.2 mg/dL (0.2 - 1)
--- NOTE | 2020-01-17 18:09 | NUR ---
PICC team called out by radiology department. spoke with Sarthak in radiology
[2020-01-17 18:25] LABS: BACTERIA,URINE MODERATE /HPF; EPITHELIAL CELLS,URINE FEW /LPF; YEAST,URINE MODERATE
[2020-01-17 19:50] LABS: ANISOCYTOSIS SLIGHT; HYPOCHROMASIA SLIGHT; LYMPHOCYTES % (MANUAL) 7 % (19-48); MONOCYTES % (MANUAL) 4 % (3.4-9.0); NEUTROPHILS % (MANUAL) 89 % (40-74); NUCLEATED RED BLOOD CELLS 5; PLATELET ESTIMATE ADEQUATE; PLATELET MORPHOLOGY COMMENT NORMAL; RBC MORPHOLOGY COMMENT NORMAL
--- NOTE | 2020-01-17 20:12 | NUR ---
evaluated pt for possible PICC placement, R arm contracted, L arm stiff, h/o multiple failed PICC attempts to LUE, only arm option d/t R arm contracture, not a candidate for PICC, suggested midline for access if no vesicants are needed, pt to be transferred out, BP has stabilized now, PIV to calf functioning, staff rn to place PIV at bedside now, pt never stuck, PICC/MIDLINE order to be cancelled
[2020-01-17 20:15] VITALS: BP 92/40
--- NOTE | 2020-01-20 09:53 | Emergency Department Note ---
History of Present Illnes History of Present Illness Chief Complaint: General Medicine Complaints: Chief Complaint Comment here for PT and INR pf 11.7 sent by home health nurse. family also reports patient is not herself and does not want to eat. Stated Complaint: PT & INR-117.1 History of Present Illness This is a 84 year old female unable to provide history arrived to the ED with daughter for elevated INR. Daughter also concerned of a possible sacral wound infection. Historian: Patient History limited by: condition of the patient Onset (how long ago): day(s) Severity: moderate Onset quality: sudden Timing of current episode: unable to specify Progression: worsening Chronicity: new Treatments prior to arrival: none Past Medical/Family History Physician Review I have reviewed the patient's past medical and family history. Any updates have been documented here. Past Medical History Recent Fever: No Clinical Suspicion of Infectio: No New/Unexplained Change in Ment: No Past Medical History: Hypertension, IA, CVA Other Medical History: PAD DVT GI BLEEDS ALZHEIMERS DEMENTIA Past Surgical History: Cholecysctectomy, CABG Other Surgery: CABGx4 Tetanus Last Tetanus: ukn Review of Systems Review of Systems Review of other systems All other systems reviewed and negative. Physical Exam Related Data Allergies: Coded Allergies: Iodinated Contrast- Oral and IV Dye (Unverified Allergy, Mild, Rash, 04/01/18) penicillin (Verified Allergy, Unknown, 04/01/18) Triage Vital Signs Vital Signs Date Time Temp Pulse Resp B/P (MAP) Pulse Ox O2 Delivery O2 Flow Rate FiO2 01/17/20 12:25 97.2 85 20 75/55 91 Physical Exam CONSTITUTIONAL Constitutional: cachectic, ill appearing HENT HENT: normocephalic, atraumatic, mucosae dry, nose normal HENT - Ear: left ext ear normal, right ext ear normal EYES Eyes: PERRL, conjunctivae normal NECK Neck: ROM normal PULMONARY Pulmonary: effort normal, breath sounds normal CARDIOVASCULAR Cardiovascular: regular rhythm, heart sounds normal, capillary refill normal, normal rate GASTROINTESTINAL Abdominal: soft, nontender, bowel sounds normal GENITOURINARY Genitourinary: exam deferred SKIN Skin: warm, dry MUSCULOSKELETAL Musculoskeletal: ROM normal NEUROLOGICAL Neurological: alert, no gross motor or sensory deficits PSYCHOLOGICAL Psychiatric/behavioral: mood/affect normal, judgement normal Results Laboratory Laboratory Date Time Temp Pulse Resp B/P (MAP) Pulse Ox O2 Delivery O2 Flow Rate FiO2 01/17/20 20:15 81 16 96 01/17/20 17:13 123/69 01/17/20 13:55 97.9 Lab results reviewed: Yes Procedures Central Line Placement Central Line Location: left internal jubular Time out performed: Yes Patient Placed on Monitor/Puls: Yes MD Prep: mask, gown, gloves Local Anesthetic: lidocaine 2% Ultrasound Used for Placement: Yes Patient tolerated procedure: other (pt markedly contracted, did not tolerate procedure- unable to lay flat, more risk of harm ) Complications: none Critical Care Time Total Critical Care Time (min): 65 Time ED Physician saw patient: 12:00 Critical care time exclusive o: separately billable procedures Critcal care necessary due to: [employer] failure or compromise Critcal care time spent by me: vascular access procedures Subsequent provider I assumed direction of critical care for this patient from another provider of my specialty. Comments 84 F arrived to the ED for elevated INR and possible infected decubitus. Pt ma rked hypotension, elevated Lactic Acid- consistent with septic shock Pt given 30 cc/kg IVF bolus --> 2L Blood cultures, lactic acid drawn BSA given Bedside volume reassessment done with improvement noted, no indication for pressor support Assessment & Plan Assessment & Plan Problems: (1) Severe sepsis (2) Supratherapeutic INR (3) Septic shock (4) Anemia (5) Hypovolemia Last Vital Signs Date Time Temp Pulse Resp B/P (MAP) Pulse Ox O2 Delivery O2 Flow Rate FiO2 01/17/20 12:25 97.2 85 20 75/55 91 Home Meds Reported Medications Doxycycline Hyclate (DOXYCYCLINE HYCLATE) 100 Mg Capsule, 100 MG PO BID, #60 CAP 01/03/20 Ciprofloxacin Hcl (CIPRO) 500 Mg Tablet, 500 MG PO DAILY, #30 TAB 01/03/20 Warfarin Sodium (WARFARIN SODIUM) 3 Mg Tablet, 3 MG PO DAILY, #30 TAB 11/09/19 Potassium Chloride* (K DUR*) 10 Meq Tabcr, 10 MEQ PO DAILY 11/05/19 Metoprolol Tartrate (LOPRESSOR) 25 Mg Tab, 25 MG PO BID, #60 TAB 11/05/19 Famotidine (FAMOTIDINE) 20 Mg Tab, 20 MG PO DAILY, #30 TAB 11/05/19 Furosemide (LASIX) 20 Mg Tablet, 20 MG PO DAILY, #30 TAB 11/05/19 Aspirin (ASPIR 81) 81 Mg Tablet.dr, 1 TAB PO DAILY 01/07/17 Amlodipine Besylate (AMLODIPINE BESYLATE) 10 Mg Tablet, 10 MG PO DAILY, #30 TAB 01/07/17 Pravastatin Sodium (PRAVASTATIN SODIUM) 40 Mg Tablet, 80 MG PO HS 01/07/17 Medications in the ED Aspirin 81 mg PRN ONCE PO ; Start 01/17/20 at 12:15; Stop 01/17/20 at 12:20; Status DC Sodium Chloride 1,000 ml @ 0 mls/hr Q0M STAT IV ; Start 01/17/20 at 12:43; Stop 01/17/20 at 12:49; Status DC Sodium Chloride 1,000 ml @ 0 mls/hr Q0M STAT IV ; Start 01/17/20 at 12:43; Stop 01/17/20 at 12:49; Status DC Cefepime HCl 1 gm ONCE IV ; Start 01/17/20 at 12:45; Stop 01/24/20 at 12:44; Status UNV Cefepime HCl 50 ml @ 100 mls/hr ONCE ONCE IV ; Start 01/17/20 at 13:00; Stop 01/17/20 at 13:29; Status DC GITA WISE DO January 17, 2020 14:01
== END | disposition other institution (70) ==
LOC: ER 11:43
DX: A41.9 Sepsis, unspecified organism (principal); R79.1 Abnormal coagulation profile; E86.1 Hypovolemia; D64.9 Anemia, unspecified; I10 Essential (primary) hypertension; G30.9 Alzheimer's disease, unspecified; F02.80 Dementia in other diseases classified elsewhere, unspecified severity, without behavioral disturbance, psychotic disturbance, mood disturbance, and anxiety; I25.2 Old myocardial infarction; Z86.73 Personal history of transient ischemic attack (TIA), and cerebral infarction without residual deficits; Z95.1 Presence of aortocoronary bypass graft
CPT/HCPCS: 36415; 36569; 71045; 80053; 81001; 82550; 82553; 83605; 84484; 85025; 85610; 87040; 87635; 99284; J0692; J7030; 86920